=== PATIENT | female | born 1975 | race Caucasian/White ===

== ENCOUNTER → 2016-07-31 | Outpatient (CLI) | payer OTHER ==
[~2016-07-31] MED LIST: ALBUAER19 INH; CALCTAB5 PO; CHOL100010 PO; DOCU100C31 PO; FLNIN/ NAE; LEVO175T3 PO; LSX20 PO; MEDR10TA9 PO; METF-384 PO; MVC20 PO
[2016-07-31 17:45] LABS: ALB/GLOB RATIO 0.9 (0.9-2); ALKALINE PHOSPHATASE 53 U/L (45-117); ALT/SGPT 37 U/L (12-78); AST/SGOT 16 U/L (15-37); BLOOD UREA NITROGEN 17 mg/dl (7-18); BUN/CREATININE RATIO 21.7 (10-20); CALCIUM 8.8 mg/dl (8.5-10.1); CARBON DIOXIDE 25 mmol/L (21-32); CHLORIDE 106 mmol/L (98-107); CHOLESTEROL 174 mg/dl (0-200); CHOLESTEROL/HDL RATIO 3.9; CREATININE 0.77 mg/dl (0.60-1.20); GLUCOSE 104 mg/dl (70-99); HDL CHOLESTEROL 45 mg/dl; POTASSIUM 3.9 mmol/L (3.5-5.1); SODIUM 142 mmol/L (136-145); TRIGLYCERIDES 495 mg/dl (0-150)
[2016-08-01 06:13] LABS: ESTIMATED AVERAGE GLUCOSE 114 mg/dl; HA1C FLAG Normal (Normal)
== END | disposition home or self-care (01) ==
LOC: C.LABBFT 10:26
PROVIDERS: ATTEND Internal Medicine
DX: E78.5 Hyperlipidemia, unspecified (principal); E11.9 Type 2 diabetes mellitus without complications; E55.9 Vitamin D deficiency, unspecified

== ENCOUNTER → 2016-08-30 | Outpatient (CLI) | payer OTHER | END | disposition home or self-care (01) | LOC: C.PAPS 09:44 | PROVIDERS: ATTEND Obstetrics & Gynecology | DX: Z01.419 Encounter for gynecological examination (general) (routine) without abnormal findings (principal) ==

== ENCOUNTER → 2016-09-13 | Outpatient (CLI) | payer OTHER ==
--- NOTE | 2016-09-13 09:48 | DIAGNOSTIC IMAGING REPORT ---
LEFT SHOULDER MIN 2 VIEWS ROUTINE CLINICAL HISTORY: E55.9 Vitamin D [id number] Neck painM25.511 Shoulder pain, COMPARISON: None. DISCUSSION: Moderate degenerative change acromioclavicular joint. Glenohumeral joint is unremarkable. No evidence for fracture or dislocation. There is no evidence for soft tissue swelling. IMPRESSION: Moderate degenerative change acromioclavicular joint. Otherwise negative study Electronically signed by: Roosevelt Shearer M.D. 09/13/2016 9:47 AM Dictated Date/Time: 09/13/2016 9:46 AM
--- NOTE | 2016-09-13 09:57 | DIAGNOSTIC IMAGING REPORT ---
CERVICAL SPINE 5 VIEWS HISTORY: E55.9 Vitamin D [id number] Neck painM25.511 Shoulder pain, COMPARISON: Cervical spine 03/22/2014. FINDINGS: The cervical spine is visualized from C1 through the superior endplate of T1. There is no fracture. No subluxation. Mild reversal of the normal lordotic curvature. Mild disc space narrowing and small endplate osteophytes at C4-C5. This is slightly progressed. No significant neural foraminal narrowing. Prevertebral soft tissues and the atlantodens interval are intact. IMPRESSION: 1. Mild degenerative disc disease at C4-C5 which is slightly progressed. 2. Mild reversal of the normal lordotic curvature. Electronically signed by: Kash Bearden M.D. 09/13/2016 9:56 AM Dictated Date/Time: 09/13/2016 9:55 AM
--- NOTE | 2016-09-13 10:05 | DIAGNOSTIC IMAGING REPORT ---
RIGHT SHOULDER 3 VIEWS CLINICAL HISTORY: Right shoulder pain. Vitamin D deficiency. FINDINGS: 3 views of the right shoulder are obtained. No prior studies are available for comparison at the time of dictation. The skeletal structures appear well mineralized. No fracture is seen. Mild productive change is identified at the acromioclavicular joint. Minimal arthritic change and sclerosis is also seen in the greater tuberosity of the humeral head. The glenohumeral articulation is preserved. The overlying soft tissues are within normal limits. The visualized right lung parenchyma appears clear. IMPRESSION: Mild arthritic change as above. No acute bony abnormality is identified. Electronically signed by: Marco Garcia M.D. 09/13/2016 10:04 AM Dictated Date/Time: 09/13/2016 10:01 AM
[2016-09-13 10:22] LABS: CALCIUM 8.9 mg/dl (8.5-10.1)
[2016-09-13 10:27] LABS: RHEUMATOID FACTOR < 10.0 U/mL (0-15)
[2016-09-19 04:37] LABS: ALBUMIN 3.8 G/DL (3.8-4.8); ANTI-CENTROMERE AB <1.0 NEG AI (<1.0 NEG); ANTI-SS-A <1.0 NEG AI (<1.0 NEG); ANTI-SS-B <1.0 NEG AI (<1.0 NEG); CYCLIC CITRULLINATED PEPT IGG <16 UNITS (<20); DNA ds CRITHIDIA NEGATIVE (NEGATIVE); GAMMA GLOBULIN 1.2 G/DL (0.8-1.7); PARVOVIRUS IgM INDEX 0.2 (<0.9); Sm Antibody <1.0 NEG AI (<1.0 NEG); TOTAL PROTEIN 6.9 G/DL (6.2-8.3)
== END | disposition home or self-care (01) ==
LOC: C.RAD1850 09:02
PROVIDERS: ATTEND Internal Medicine Rheumatology
DX: E55.9 Vitamin D deficiency, unspecified (principal); M25.511 Pain in right shoulder; M25.512 Pain in left shoulder; R70.0 Elevated erythrocyte sedimentation rate; M50.20 Other cervical disc displacement, unspecified cervical region

== ENCOUNTER → 2016-12-21 | Outpatient (CLI) | payer OTHER ==
[~2016-12-21] MED LIST changes: +ERGO500037 PO; +FERR324T PO; +LEVO150T PO; +NAPR1TAB9 PO; +NITR-5 PO; +VNTHFA/IN INH
[2016-12-21 18:56] LABS: ALT/SGPT 34 U/L (12-78); AST/SGOT 18 U/L (15-37); BLOOD UREA NITROGEN 15 mg/dl (7-18); BUN/CREATININE RATIO 18.4 (10-20); CALCIUM 8.2 mg/dl (8.5-10.1); CARBON DIOXIDE 25 mmol/L (21-32); CHLORIDE 105 mmol/L (98-107); CREATININE 0.82 mg/dl (0.60-1.20); GLUCOSE 80 mg/dl (70-99); POTASSIUM 4.1 mmol/L (3.5-5.1); SODIUM 137 mmol/L (136-145)
[2016-12-21 19:11] LABS: ALB/GLOB RATIO 0.9 (0.9-2); ALKALINE PHOSPHATASE 58 U/L (45-117); CHOLESTEROL 181 mg/dl (0-200); CHOLESTEROL/HDL RATIO 4.5; HDL CHOLESTEROL 40 mg/dl; THYROID STIMULATING HORMONE 0.324 uIu/ml (0.300-4.500); TRIGLYCERIDES 474 mg/dl (0-150)
[2016-12-22 06:32] LABS: ESTIMATED AVERAGE GLUCOSE 117 mg/dl; HA1C FLAG Normal (Normal)
== END | disposition home or self-care (01) ==
LOC: C.LABBFT 11:30
PROVIDERS: ATTEND Physician Assistant Medical
DX: E55.9 Vitamin D deficiency, unspecified (principal); E78.5 Hyperlipidemia, unspecified; E11.9 Type 2 diabetes mellitus without complications

== ENCOUNTER → 2017-02-11 | Outpatient (CLI) | payer OTHER ==
[~2017-02-11] MED LIST changes: -ERGO500037 PO; -FERR324T PO; -LEVO150T PO; -NAPR1TAB9 PO; -NITR-5 PO; -VNTHFA/IN INH
[2017-02-14 03:04] LABS: CHLAMYDIA TRACH RNA*** NOT DETECTED (NOT DETECTED); GC (NEIS GONORRHOEAE)RNA** NOT DETECTED (NOT DETECTED); TRICHOMONAS VAGINALIS RNA** NOT DETECTED (NOT DETECTED)
== END | disposition home or self-care (01) ==
LOC: C.LABSPEC 13:40
PROVIDERS: ATTEND Obstetrics & Gynecology
DX: E28.2 Polycystic ovarian syndrome (principal)

== ENCOUNTER → 2017-02-11 | Outpatient (CLI) | payer OTHER | END | disposition home or self-care (01) | LOC: C.PATHSPEC 13:06 | PROVIDERS: ATTEND Obstetrics & Gynecology | DX: E28.2 Polycystic ovarian syndrome (principal) ==

== ENCOUNTER → 2017-05-27 | Day surgery (SDC) | payer OTHER ==
[2017-05-22 13:21] LABS: BASO % 0.6 %; BASO ABS # 0.06 K/uL (0-0.2); COMPLETE YES; EOS % 2.3 %; HEMATOCRIT 30.8 % (37-47); IG% 0.5 %; LYMPH % 32.7 %; LYMPH ABS # 3.42 K/uL (1.2-3.4); MEAN CELL VOLUME 75.7 fL (80-100); MEAN CORPUSCULAR HEMOGLOBIN 23.1 pg (25-34); MEAN CORPUSCULAR HGB CONC 30.5 g/dl (32-36); MEAN PLATELET VOLUME 8.7 fL (7.4-10.4); MONO % 7.9 %; PLATELET COUNT 412 K/uL (130-400); RED BLOOD COUNT 4.07 M/uL (4.2-5.4); WHITE BLOOD COUNT 10.45 K/uL (4.8-10.8)
[2017-05-22 13:32] LABS: URINE APPEARANCE CLEAR (CLEAR); URINE BILIRUBIN NEG (NEG); URINE COLOR YELLOW; URINE NITRITE NEG (NEG); URINE SPECIFIC GRAVITY 1.018 (1.000-1.030); UROBILINOGEN NEG (NEG)
[2017-05-22 13:36] LABS: MANUAL MICROSCOPIC REQUIRED? NO; REVIEW REQ? NO
[2017-05-22 13:39] VITALS: BMI 49.0
--- NOTE | 2017-05-22 14:04 | PAT Medication Instructions ---
Service Date May 22, 2017. Current Home Medication List Albuterol Hfa (Ventolin Hfa), 2-4 PUFFS INH Q6H PRN for SOB/Wheezing Docusate Sodium (Docusate Sodium), 100 MG PO BID Ergocalciferol (Vitamin D 20021 Unit), 50,000 UNIT PO WK Fluticasone Propionate (Fluticasone Propionate), 2 SPRAYS MENA QAM Furosemide (Furosemide), 20 MG PO Q2D Levothyroxine Sodium (Synthroid), 150 MCG PO QAM Lovastatin (Lovastatin), 20 MG PO HS Metformin Hcl (Glucophage), 1,000 MG PO BID Medication Instructions For Your Scheduled Surgery - Hold the following medications 48 hours (2 days) prior to surgery: Metformin Hcl (Glucophage), 1,000 MG PO BID - Hold the following medications the morning of surgery: Docusate Sodium (Docusate Sodium), 100 MG PO BID Ergocalciferol (Vitamin D 07524 Unit), 50,000 UNIT PO WK Furosemide (Furosemide), 20 MG PO Q2D - Take the following medications the morning of surgery with a sip of water: Albuterol Hfa (Ventolin Hfa), 2-4 PUFFS INH Q6H PRN for SOB/Wheezing (use if needed; BRING TO HOSPITAL) Fluticasone Propionate (Fluticasone Propionate), 2 SPRAYS MENA QAM Levothyroxine Sodium (Synthroid), 150 MCG PO QAM - Take the following medications as scheduled the night before surgery: Docusate Sodium (Docusate Sodium), 100 MG PO BID Lovastatin (Lovastatin), 20 MG PO HS If you have any questions please call us at [phone] or [phone] or [phone]
[2017-05-22 14:14] LABS: BUN/CREATININE RATIO 16.5 (10-20); CALCIUM 8.6 mg/dl (8.5-10.1); CREATININE 0.67 mg/dl (0.60-1.20); POTASSIUM 4.1 mmol/L (3.5-5.1)
[~2017-05-27] VITALS: Ht 170.2 cm; Wt 142.7 kg
[~2017-05-27] MED LIST changes: -ALBUAER19 INH; +ATROPINE SULFATE 0.1 MG/ML 5ML SYR IV PRN; -CALCTAB5 PO; +CEFAZOLIN SOD 1 GM VIAL ONE; -CHOL100010 PO; +DEXAMETHASONE SOD INJ 4 MG/ML VIAL ONE; +ERGO500037 PO; +EpHEDrine SULFATE INJ 50 MG/ML AMP IV PRN; +FENTANYL CITRATE INJ 50 MCG/1 ML 2 ML VIAL IV PRN; +FENTANYL CITRATE INJ 50 MCG/1 ML 2 ML VIAL ONE; +FERR324T PO; +GLYCOPYRROLATE INJ 0.2 MG/ML VIAL ONE; +HYDROmorphone INJ 1 MG/ML SYR IV PRN; +KETOROLAC TROMETHAMINE 30 MG/ML VIAL IV. PRN; +LACTATED RINGER'S 1000ML 1,000 ML IV SCH; +LARYING-O-JET KIT (LTA) ONE; +LEVO150T PO; -LEVO175T3 PO; +LIDOCAINE HCL 2% 2 ML VIAL (20MG/ML) ONE; -MEDR10TA9 PO; +MIDAZOLAM HCL 1 MG/ML 2ML VIAL ONE; +NAPR1TAB9 PO; +NEOSTIGMINE METHYLSULFATE 5 MG/5 ML SYR ONE; +NITR-5 PO; +ONDANSETRON INJ 2 MG/ML 2 ML VIAL IV PRN; +ONDANSETRON INJ 2 MG/ML 2 ML VIAL ONE; +OXYCODONE/ACETAMINOPHEN 5-325 TAB PO PRN; +PROMETHAZINE HCL INJ 25 MG in SODIUM CHLORIDE 0.9% 50ML 50 ML IV PRN; +PROPOFOL IV EMULSION 10 MG/ML 20 ML VIAL IV ONE; +SODIUM CHLORIDE 0.9% 1000ML 1,000 ML IV SCH; +SODIUM CHLORIDE 0.9% INJ 10 ML VIAL ONE; +SUCCINYLCHOLINE 100MG/5ML SYR IV ONE; +VNTHFA/IN INH
[2017-05-27 10:30] VITALS: BP 143/71; PULSE 88; TEMP 36.4; O2SAT 96; Ht 170.2 cm; Wt 142.7 kg
[2017-05-27 10:59] LABS: PREG INTERNAL NEGATIVE QC NEG CLEAR BACKGROUND; PREG INTERNAL POSITIVE QC POS CONTROL LINE
--- NOTE | 2017-05-27 12:41 | History & Physical Bridge Note ---
H&P Re-Evaluation Bridge Note: I have examined the patient, reviewed the History & Physical and in the interval since the performance of the History & Physical I have noted the following changes of clinical significance: No changes noted
--- NOTE | 2017-05-27 14:08 | [facility] Post Operative Brief Note ---
Immediate Operative Summary Operative Date May 27, 2017. Pre-Operative Diagnosis Thickened endometrium Post-Operative Diagnosis Same Procedure(s) Performed Hysteroscopy, D&C, insertion of Mirena IUD Surgeon Elver Ledesma DO Dishwashing Machine Repairer Surgeon(s) None Estimated Blood Loss 25cc Findings Thickened endo lining, large amount of fluffy endometrial tissue. Specimens Endometrial curettings Drains bladder drained prior to procedure Anesthesia general Complication(s) None Disposition Recovery Room / PACU
--- NOTE | 2017-05-27 14:10 | Discharge Instructions ---
Discharge Instructions Date of Service May 27, 2017. Visit Reason for Visit: Thickened Endometrium, Endometrial Polyp Discharge Discharge Diagnosis / Problem: same Discharge Goals Goal(s): Diagnostic testing, Therapeutic intervention Activity Recommendations Activity Limitations: per Instructions/Follow-up section Anesthesia . Post Anesthesia Instructions: If you have had General Anesthesia or IV Sedation: * Do not drive today. * Resume driving when surgeon permits. * Do not make important decisions or sign legal documents today. * Call surgeon for: 1. Temperature elevations greater than 101 degrees F. 2. Uncontrollable pain. 3. Excessive bleeding. 4. Persistent nausea and vomiting. 5. Medication intolerance (nausea, vomiting or rash). * For nausea and vomiting use only clear liquids such as: tea, soda, bouillon until nausea subsides, then gradually increase diet as tolerated. * If you have any concerns or questions, call your surgeon's office. If physician is unavailable and it is an emergency, call 911 or go to the nearest emergency room. . Instructions / Follow-Up Instructions / Follow-Up ACTIVITY RECOMMENDATIONS: * Avoid tampons, douching, hot tubs, pools, and intercourse until bleeding has stopped. * May shower as usual. * No strenuous activity for 24-48 hours. After 24-48 hours, you may do anything you feel like doing (driving and sports are okay). SPECIAL CARE INSTRUCTIONS: Special Diet: * Mild nausea may occur in the immediate post-operative period. * Take clear liquids such as tea, cola or bouillon until all nausea has subsided; you may then resume your normal diet. Special Care: * Light bleeding and vaginal spotting can last from a few days to 3-4 weeks. Call your doctor if bleeding becomes heavier than the heaviest part of your period. * Check your temperature twice a day for one week. If it goes above 100.4 degrees Fahrenheit (38.0 Celsius), notify your doctor. * Call your doctor's office for an appointment for 6 weeks after your surgery. FOLLOW-UP VISIT: Call your doctor's office for an appointment for 6 weeks after your surgery. Diet Recommendations Recommended Home Diet: resume previous diet Procedures Procedures Performed: Hysteroscopy, D&C, insertion of Mirena IUD Pending Studies Studies pending at discharge: yes List of pending studies: Endometrial curettings Medical Emergencies . Who to Call and When: Medical Emergencies: If at any time you feel your situation is an emergency, please call 911 immediately. . Non-Emergent Contact Non-Emergency issues call your: Primary Care Provider, 3D Designer . . "Provider Documentation" section prepared by Shantelle Ledesma. .
--- NOTE | 2017-05-27 14:31 | OPERATIVE REPORT ---
DATE OF OPERATION: 05/27/2017 PREOPERATIVE DIAGNOSES: Thickened endometrium and urinary tract infection. POSTOPERATIVE DIAGNOSES: Same. PROCEDURES PERFORMED: Hysteroscopy, dilation and curettage and insertion of Mirena IUD. SURGEON: Shantelle Ledesma DO HISTOPATH TECH: None. ESTIMATED BLOOD LOSS: 25 mL. FINDINGS: Thickened endometrial lining and large amount of fluffy endometrial tissue. SPECIMENS: Endometrial curettings. DRAINS: Bladder drained prior to procedure. ANESTHESIA: General. COMPLICATIONS: None. DISPOSITION: Stable and good to recovery area. INDICATIONS FOR PROCEDURE: The patient is a 42-year-old G0 with a longstanding history of heavy periods that had been treated with Depo, but due to her weight and elevated BMI, decision was made to stop the Depo. Ultrasound was performed and showed thickened endometrial lining. DESCRIPTION OF PROCEDURE: The patient was seen in the preoperative holding area, where risks, benefits, and alternatives to surgery were reviewed. She had previously signed informed consent in the office under no duress. She elected to proceed with surgery. All questions were answered. She was taken to the operating room, where preoperatively Ancef was given due to findings of Ancef susceptible UTI on preoperative testing. She was prepared and draped in the usual sterile fashion in the dorsal lithotomy position with [facility]ups. A timeout was confirmed. The bladder was drained. The weighted speculum was placed in the vagina. The cervix was visualized and the anterior lip was grasped with a single tooth tenaculum. The cervix was gently sequentially dilated to admit the hysteroscope. The hysteroscope was inserted. The cavity was viewed with the above noted findings. Hysteroscope was withdrawn and a gentle curettage was undertaken with a sharp curette. Large amount of fluffy endometrial tissue was obtained and sent to pathology for further review. Next, the Mirena IUD was inserted without difficulty. All instruments were removed from the vagina. The Mirena strings were trimmed and tucked behind the cervix. The patient was awoken from anesthesia. She tolerated the procedure well and went to recovery area in stable and good condition. All instrument and sponge counts were correct at the conclusion of the surgery. I attest to the content of the Intraoperative Record and any orders documented therein. Any exception s are noted below.
[2017-05-27 15:00] VITALS: BP 127/66; PULSE 77; TEMP 36.5; O2SAT 97
--- NOTE | 2017-05-27 15:18 | Anesthesiology Progress Note ---
Anesthesia Post Op Note Date & Time May 27, 2017 at 15:17 Vital Signs Pain Intensity: 4 Vital Signs Past 12 Hours Date Time Temp Pulse Resp B/P (MAP) Pulse Ox O2 Delivery O2 Flow Rate FiO2 05/27/17 14:55 36.3 05/27/17 14:51 122/70 05/27/17 14:48 80 17 97 05/27/17 14:48 79 17 05/27/17 14:46 126/92 05/27/17 14:43 81 21 97 05/27/17 14:43 81 21 05/27/17 14:42 80 21 05/27/17 14:42 80 21 98 05/27/17 14:41 129/82 05/27/17 14:37 81 16 05/27/17 14:37 81 16 96 05/27/17 14:36 134/78 05/27/17 14:32 82 18 05/27/17 14:32 83 18 95 05/27/17 14:31 133/79 05/27/17 14:27 84 19 05/27/17 14:27 90 19 98 05/27/17 14:26 125/87 05/27/17 14:22 84 19 100 05/27/17 14:22 83 19 05/27/17 14:21 129/82 05/27/17 14:17 84 16 05/27/17 14:17 84 16 100 05/27/17 14:16 132/78 05/27/17 14:13 133/91 05/27/17 14:12 85 19 05/27/17 14:12 85 19 100 05/27/17 14:08 153/101 05/27/17 14:07 36.0 84 20 133/91 100 Oxymask 10 05/27/17 10:30 36.4 88 20 143/71 (95) 96 Room Air Notes Mental Status: alert / awake / arousable, participated in evaluation Pt Amnestic to Procedure: Yes Nausea / Vomiting: adequately controlled Pain: adequately controlled Airway Patency, RR, SpO2: stable & adequate BP & HR: stable & adequate Hydration State: stable & adequate Anesthetic Complications: no major complications apparent
[2017-05-27 15:30] VITALS: BP 158/84; PULSE 80; O2SAT 99
[2017-05-27 16:00] VITALS: BP 148/74; PULSE 76; TEMP 36.5; O2SAT 96
== END | disposition home or self-care (01) ==
LOC: C.ACU 10:04
PROVIDERS: ATTEND Obstetrics & Gynecology
DX: N85.01 Benign endometrial hyperplasia (principal); E28.2 Polycystic ovarian syndrome; N39.0 Urinary tract infection, site not specified; E11.9 Type 2 diabetes mellitus without complications; F81.9 Developmental disorder of scholastic skills, unspecified; Z30.430 Encounter for insertion of intrauterine contraceptive device

== ENCOUNTER → 2017-10-08 | Outpatient (CLI) | payer OTHER ==
[~2017-10-08] MED LIST changes: -ATROPINE SULFATE 0.1 MG/ML 5ML SYR IV PRN; -CEFAZOLIN SOD 1 GM VIAL ONE; -DEXAMETHASONE SOD INJ 4 MG/ML VIAL ONE; -EpHEDrine SULFATE INJ 50 MG/ML AMP IV PRN; -FENTANYL CITRATE INJ 50 MCG/1 ML 2 ML VIAL IV PRN; -FENTANYL CITRATE INJ 50 MCG/1 ML 2 ML VIAL ONE; -GLYCOPYRROLATE INJ 0.2 MG/ML VIAL ONE; -HYDROmorphone INJ 1 MG/ML SYR IV PRN; -KETOROLAC TROMETHAMINE 30 MG/ML VIAL IV. PRN; -LACTATED RINGER'S 1000ML 1,000 ML IV SCH; -LARYING-O-JET KIT (LTA) ONE; -LIDOCAINE HCL 2% 2 ML VIAL (20MG/ML) ONE; -MIDAZOLAM HCL 1 MG/ML 2ML VIAL ONE; -NEOSTIGMINE METHYLSULFATE 5 MG/5 ML SYR ONE; -ONDANSETRON INJ 2 MG/ML 2 ML VIAL IV PRN; -ONDANSETRON INJ 2 MG/ML 2 ML VIAL ONE; -OXYCODONE/ACETAMINOPHEN 5-325 TAB PO PRN; -PROMETHAZINE HCL INJ 25 MG in SODIUM CHLORIDE 0.9% 50ML 50 ML IV PRN; -PROPOFOL IV EMULSION 10 MG/ML 20 ML VIAL IV ONE; -SODIUM CHLORIDE 0.9% 1000ML 1,000 ML IV SCH; -SODIUM CHLORIDE 0.9% INJ 10 ML VIAL ONE; -SUCCINYLCHOLINE 100MG/5ML SYR IV ONE
== END | disposition home or self-care (01) ==
LOC: C.LABSPEC 11:54
PROVIDERS: ATTEND Obstetrics & Gynecology
DX: R39.9 Unspecified symptoms and signs involving the genitourinary system (principal); B37.3 Candidiasis of vulva and vagina

== ENCOUNTER → 2017-11-05 | Outpatient (CLI) | payer OTHER ==
--- NOTE | 2017-11-05 15:58 | DIAGNOSTIC IMAGING REPORT ---
KUB CLINICAL HISTORY: Intrauterine device assessment. FINDINGS: 2 AP supine abdominal radiographs are correlated with abdominal CT dictated 11/28/2010. There is a nonobstructed abdominal bowel gas pattern. Moderate colonic fecal retention is noted. There is no evidence of intraperitoneal free air on these supine images. No intrauterine device is identified in the pelvis. There are no abnormal abdominal calcifications. The bony structures appear intact. Sclerotic change is noted in the sacroiliac joints. IMPRESSION: 1. Nonobstructed abdominal bowel gas pattern. 2. No intrauterine device is identified. Electronically signed by: Marco Garcia M.D. 11/05/2017 3:57 PM Dictated Date/Time: 11/05/2017 3:55 PM
== END | disposition home or self-care (01) ==
LOC: C.RAD 15:27
PROVIDERS: ATTEND Obstetrics & Gynecology
DX: T83.32XA Displacement of intrauterine contraceptive device, initial encounter (principal); Y76.2 Prosthetic and other implants, materials and accessory obstetric and gynecological devices associated with adverse incidents

== ENCOUNTER 2019-04-26 13:22 | Observation (INO) ==
[2019-04-26] MEDS ORDERED: DEXAMETHASONE SOD INJ 4 MG/ML VIAL IV STA (13:50)
[2019-04-26] MEDS ORDERED: DiphenhydrAMINE HCL 50 MG/ML VIAL IV STA (13:50)
[2019-04-26 14:00] LABS: Basophils # (auto) 0.02 K/uL (0-0.2); Basophils % (auto) 0.1 %; Eosinophils # (auto) 0.27 K/uL (0-0.5); Eosinophils % (auto) 1.9 %; Hematocrit (blood only) 31.9 % (37-47); Hemoglobin 10.7 g/dL (12.0-16.0); Immature Granulocytes # (auto) 0.04 K/uL (0.00-0.02); Immature Granulocytes % (auto) 0.3 %; Lymphocytes # (auto) 2.19 K/uL (1.2-3.4); Lymphocytes % (auto) 15.5 %; Mean Corpuscular Hemoglobin 26.1 pg (25-34); Mean Corpuscular Hgb Conc 33.5 g/dL (32-36); Mean Corpuscular Volume 77.8 fL (80-100); Mean Platelet Volume 8.5 fL (7.4-10.4); Monocytes # (auto) 0.73 K/uL (0.11-0.59); Monocytes % (auto) 5.2 %; Neutrophils # (auto) 10.86 K/uL (1.4-6.5); Platelet Count 587 K/uL (130-400); RDW Coefficient of Variation 15.6 % (11.5-14.5); RDW Standard Deviation 44.6 fL (36.4-46.3); White Blood Count 14.11 K/uL (4.8-10.8)
[2019-04-26] MEDS ORDERED: SODIUM CHLORIDE 0.9% 500 ML IV SCH (14:00)
[2019-04-26 14:18] LABS: Albumin Level 3.1 gm/dl (3.4-5.0); BUN Creatinine Ratio 14.8 (10-20); Calcium 8.7 mg/dl (8.5-10.1); Creatinine Clr Calc Pharmacy 128.4 ml/min; Est GFR (African American) 106.1; Est GFR (Non-African American) 91.6; Potassium 3.8 mmol/L (3.5-5.1)
[2019-04-26 14:21] LABS: Albumin Globulin Ratio 0.6 (0.9-2); Bilirubin,Total 0.2 mg/dl (0.2-1); Total Protein 8.1 gm/dl (6.4-8.2)
--- NOTE | 2019-04-26 14:34 | XRay Report ---
XR soft tissue neck CLINICAL HISTORY: tongue angioedema COMPARISON STUDY: Cervical spine 09/23/2016. FINDINGS: Prevertebral soft tissues and the epiglottis are normal in thickness. Significant swelling within the upper anterior neck/sublingual location. This results in mild mass effect along the hypoph arynx. No radiopaque foreign bodies. IMPRESSION: Significant soft tissue swelling within the upper anterior neck/sublingual location resu lting in mild mass effect along the hypopharynx. Electronically signed by: Kash Bearden M.D. 04/26/2019 2:33 PM
--- NOTE | 2019-04-26 14:35 | XRay Report ---
XR chest 1V portable HISTORY: Shortness of breath. COMPARISON: Chest 08/17/2018. FINDINGS: There are low lung volumes, unchanged. The heart is normal in size. The lungs are clear. No pleural effusions. No pneumothorax. IMPRESSION: No significant change compared to the prior study. No acute process. Electronically signed by: Kash Bearden M.D. 04/26/2019 2:34 PM
--- NOTE | 2019-04-26 15:40 | Emergency Department Note ---
Entered by Fatoumata Davis acting as a scribe for Eran Weaver MD History of Present Illness General Chief complaint: Allergic Reaction Stated complaint: SWOLLEN TONGUE Time Seen by Provider: 04/26/19 13:50 Source: patient History of Present Illness Onset (ago): hour(s) (this morning) Location: mouth (tongue) Pain Consistency: + other (episode) Quality: + other (swelling secondary to allergic reaction) Associated symptoms: + denies other symptoms (shortness of breath) and + other (swollen neck glands, difficulty swallowing, itchy skin and eyes, muffled voice, inability to lower tongue) The patient is a 43 year old female that is presenting to the Emergency Room with complaints of an episode of an allergic reaction that occurred this morning. The patient reports that she noticed her tongue was swollen this morning. She states that she is unable to lower her tongue down from the roof of her mouth. She notes that the glands in her throat are swollen. She reports that she is having difficulty swallowing secondary to her symptoms. She states that her voice is more muffled than usual due to her swollen tongue. She denies any shortness of breath. She notes that she feels itchy diffusely and that her eyes are watery. The patient denies taking any unusual medications or eating anything different. She notes that she believes she is allergic to her cats. She reports that she took her Claritin and used her nasal spray today. She notes that she started Lasix and Lisinopril 1 month ago for her hypertension. She reports that she had an episode of swollen lips two days ago that resolved on its own. She denies seeing a provider at that time as the symptoms resolved. The patient denies any sick contacts. She denies any family history of similar issues. She states that she is up to date with all her vaccinations. Home Medications Home Medications Medication Instructions Recorded Confirmed Type albuterol sulfate [Ventolin HFA] 2 puff INHALATION QID PRN 08/17/18 04/26/19 History docusate sodium [Stool Softener] 100 mg PO BID PRN 08/17/18 04/26/19 History fluticasone propionate [Flonase 2 spray INTRANASAL QAM PRN 08/17/18 04/26/19 History Allergy Relief] furosemide [Lasix] 20 mg PO DAILY PRN 08/17/18 04/26/19 History metformin [Glucophage] 1,000 mg PO BID 08/17/18 04/26/19 History blood sugar diagnostic strips #10 ea 03/06/19 04/26/19 History cholecalciferol (vitamin D3) 1,000 2,000 units PO QAM tab 03/06/19 04/26/19 History unit (25 mcg) tablet loratadine 10 mg tablet 0 mg PO QAM #30 tab 03/06/19 04/26/19 History lovastatin 20 mg tablet 0 mg PO HS #30 tab 03/06/19 04/26/19 History meloxicam 15 mg tablet 0 mg PO QAM #30 tab 03/06/19 04/26/19 History ferrous sulfate 0 mg PO QAM 03/26/19 04/26/19 History acetaminophen [Tylenol] 325 mg PO Q6H PRN 04/26/19 04/26/19 History lisinopril 10 mg PO DAILY 04/26/19 04/26/19 History duloxetine 40 mg PO DAILY 04/27/19 04/27/19 History levothyroxine 200 mcg PO DAILY 04/27/19 04/27/19 History semaglutide 0.25 mg SUBCUT WK 04/27/19 04/27/19 History valacyclovir 1,000 mg PO DAILY 04/27/19 04/27/19 History Allergies Allergy/AdvReac Type Severity Reaction Status Date / Time No Known Drug Allergies Allergy Verified 04/26/19 15:00 TWAN Inhibitors AdvReac Severe angioedema Verified 04/26/19 23:20 NSAIDS (Non-Steroidal AdvReac Severe angioedema Verified 04/26/19 23:20 Anti-Inflamma Past Med/Surg History Medical History Diabetes mellitus type 2, controlled (Chronic) Hypertension (Chronic) Asthma (Chronic) Chronic bilateral low back pain without sciatica (Chronic) Degenerative joint disease of cervical spine (Chronic) Herpes simplex (Chronic) Hirsutism (Chronic) Hyperlipidemia (Chronic) Hypothyroidism (Chronic) Intellectual disability (Chronic) Morbid obesity (Chronic) Polycystic ovarian syndrome (Chronic) Severe obstructive sleep apnea (Chronic) Type 2 diabetes mellitus (Chronic) Diabetes mellitus, type II (Chronic) History of abnormal uterine bleeding History of endometrial hyperplasia Surgical History H/O oral surgery History of endometrial biopsy S/P D&C (status post dilation and curettage) S/P tonsillectomy Family History Aunt Breast cancer maternal aunt Family/Other Diabetes Other Family history non-contributory Social History Preferred Language: Welsh Communication Ability: Effective Beliefs That Will Affect Care: None Current Living Situation: Spouse Other Information That Helps Us Care for You: No Feels Safe at Home: Yes Safety Concerns: Feels Safe At This Time Smoking Status: Former smoker Hx Alcohol Use: Yes (social) Hx Substance Use: No Review of Systems See HPI for pertinent positives & negatives. and A total of 10 systems reviewed and were otherwise negative Physical Exam Vital Signs Vital Signs - 24 hr 04/26/19 13:31 04/26/19 13:41 04/26/19 13:45 Temperature 37.0 C Temperature Source Oral Sepsis Recent Fever Within 48 Hours No Sepsis New/Unexplained Change in Mental Status No Sepsis Action Taken by Nursing No Action Required Pulse Rate 113 H 115 H 115 H Pulse Rate from SpO2 Sensor 115 H 114 H Pulse Rhythm Respiratory Rate 22 Respiratory Effort / Characteristics Non-Labored Spontaneous Respiratory Depth Normal Blood Pressure 138/83 139/73 Blood Pressure Mean 101 95 Blood Pressure Position Sitting Pulse Oximetry 92 98 98 Oxygen Delivery Method Room Air 04/26/19 13:50 04/26/19 13:52 04/26/19 14:00 Temperature Temperature Source Sepsis Recent Fever Within 48 Hours Sepsis New/Unexplained Change in Mental Status Sepsis Action Taken by Nursing Pulse Rate 111 H 106 H Pulse Rate from SpO2 Sensor 111 H 107 H Pulse Rhythm Regular Respiratory Rate Respiratory Effort / Characteristics Respiratory Depth Blood Pressure Blood Pressure Mean Blood Pressure Position Pulse Oximetry 98 97 97 Oxygen Delivery Method Room Air 04/26/19 14:10 04/26/19 14:20 04/26/19 14:27 Temperature Temperature Source Sepsis Recent Fever Within 48 Hours Sepsis New/Unexplained Change in Mental Status Sepsis Action Taken by Nursing Pulse Rate 108 H 110 H 108 H Pulse Rate from SpO2 Sensor 108 H 110 H 108 H Pulse Rhythm Respiratory Rate Respiratory Effort / Characteristics Respiratory Depth Blood Pressure 131/76 Blood Pressure Mean 94 Blood Pressure Position Pulse Oximetry 97 98 99 Oxygen Delivery Method 04/26/19 14:30 04/26/19 14:31 04/26/19 14:40 Temperature Temperature Source Sepsis Recent Fever Within 48 Hours Sepsis New/Unexplained Change in Mental Status Sepsis Action Taken by Nursing Pulse Rate 109 H 107 H 107 H Pulse Rate from SpO2 Sensor 110 H 108 H 107 H Pulse Rhythm Respiratory Rate Respiratory Effort / Characteristics Respiratory Depth Blood Pressure 119/69 Blood Pressure Mean 85 Blood Pressure Position Pulse Oximetry 97 96 96 Oxygen Delivery Method 04/26/19 14:45 04/26/19 14:50 04/26/19 15:00 Temperature Temperature Source Sepsis Recent Fever Within 48 Hours Sepsis New/Unexplained Change in Mental Status Sepsis Action Taken by Nursing Pulse Rate 109 H 109 H 103 H Pulse Rate from SpO2 Sensor 109 H 108 H 104 H Pulse Rhythm Respiratory Rate Respiratory Effort / Characteristics Respiratory Depth Blood Pressure 123/68 112/72 Blood Pressure Mean 86 85 Blood Pressure Position Pulse Oximetry 96 98 97 Oxygen Delivery Method 04/26/19 15:10 04/26/19 15:15 04/26/19 15:20 Temperature Temperature Source Sepsis Recent Fever Within 48 Hours Sepsis New/Unexplained Change in Mental Status Sepsis Action Taken by Nursing Pulse Rate 94 H 99 H 105 H Pulse Rate from SpO2 Sensor 95 H 100 H 105 H Pulse Rhythm Respiratory Rate Respiratory Effort / Characteristics Respiratory Depth Blood Pressure 138/75 Blood Pressure Mean 96 Blood Pressure Position Pulse Oximetry 97 99 98 Oxygen Delivery Method 04/26/19 15:30 04/26/19 15:31 04/26/19 15:40 Temperature Temperature Source Sepsis Recent Fever Within 48 Hours Sepsis New/Unexplained Change in Mental Status Sepsis Action Taken by Nursing Pulse Rate 102 H 101 H 99 H Pulse Rate from SpO2 Sensor 102 H 103 H 99 H Pulse Rhythm Respiratory Rate Respiratory Effort / Characteristics Respiratory Depth Blood Pressure 121/80 Blood Pressure Mean 93 Blood Pressure Position Pulse Oximetry 98 98 97 Oxygen Delivery Method GENERAL: Awake, alert, uncomfortable-appearing, in no distress HENT: Normocephalic, atraumatic. Oropharynx with moderate left sided tongue angioedema with muffled/nasal voice but no stridor. No Trismus. Handling secretions without difficulty. No pain with tracheal manipulation. No crepitus. EYES: Normal conjunctiva. Sclera non-icteric. NECK: Supple. No nuchal rigidity. FROM. No JVD. RESPIRATORY: CTA bilaterally. CARDIAC: Regular rate, normal rhythm. Extremities warm and well perfused. Pulses equal. ABDOMEN: Soft, non-distended. No tenderness to palpation. No rebound or guarding. No masses. RECTAL: Deferred. MUSCULOSKELETAL: Chest examination reveals no tenderness. The back is symmetrical on inspection without obvious abnormality. There is no CVA ten derness to palpation. No joint edema. LOWER EXTREMITIES: Calves are equal size bilaterally and non-tender. No edema. No discoloration. NEURO: Normal sensorium. No sensory or motor deficits noted. SKIN: No rash or jaundice noted. Course 1343:The patient was evaluated in room B01. A complete history and physical examination was performed. 1448: I updated the patient on her current lab and imaging results. She is resting comfortably at this time. 1456: I discussed the patients case with Pedro Briscoe, who will evaluate the patient for further management and care. 1500: Upon reevaluation, the patient is resting comfortably. I discussed laboratory and radiographic results with the patient. She verbalized agreement of the treatment plan. The patient will be evaluated for further management and care. Administered Medications Diphenhydramine HCl (Benadryl) 25 mg IV Q6H PRN PRN Reason: Allergic Reaction Stop: 05/26/19 16:56 Last Admin: 04/26/19 19:37 Dose: 25 mg Documented by: [id number] Diphenhydramine HCl (Benadryl) 50 mg IV Q6 ELIO Stop: 05/27/19 00:00 Last Admin: 04/26/19 23:45 Dose: 50 mg Documented by: [id number] Epinephrine (Raccemic Epinephrine 2.25% 0.5ml) 0.5 ml NEB TIDR ELIO Stop: 05/26/19 18:59 Last Admin: 04/26/19 19:01 Dose: 0.5 ml Documented by: [id number] Sodium Chloride (1/2 Nss) 1,000 mls @ 100 mls/hr IV .Q10H ELIO Stop: 05/26/19 17:05 Last Admin: 04/26/19 17:52 Dose: 100 mls/hr Documented by: [id number] Methylprednisolone 40 mg/ (Syringe) 0.64 mls @ 1.5 mls/min IV Q8 ELIO Stop: 05/26/19 21:59 Last Admin: 04/26/19 21:01 Dose: 1.5 mls/min Documented by: [id number] Ranitidine HCl 50 mg/ Dextrose 102 mls @ 200 mls/hr IV Q8H ELIO Stop: 05/26/19 21:59 Last Infusion: 04/26/19 21:47 Dose: 0 mls/hr Documented by: [id number] Admin: 04/26/19 20:57 Dose: 200 mls/hr Documented by: [id number] Acetaminophen (Ofirmev) 65 mls @ 200 mls/hr IV Q6H PRN PRN Reason: Pain or Fever Stop: 05/26/19 23:29 Last Admin: 04/26/19 23:44 Dose: 200 mls/hr Documented by: [id number] Insulin Aspart (Novolog Flexpen) 0 units SC Q6 ELIO Stop: 05/27/19 00:00 Last Admin: 04/26/19 23:54 Dose: 2 units Documented by: [id number] Cosigned by: [id number] Insulin Glargine (Lantus Solostar Pen) 0 units SC Q12 ELIO; Protocol Stop: 05/26/19 20:59 Last Admin: 04/26/19 21:54 Dose: 15 units Documented by: [id number] Cosigned by: [id number] Discontinued Medications Dexamethasone (Decadron) 10 mg IV NOW STA Stop: 04/26/19 13:51 Last Admin: 04/26/19 13:58 Dose: 10 mg Documented by: [id number] Diphenhydramine HCl (Benadryl) 25 mg IV NOW STA Stop: 04/26/19 13:51 Last Admin: 04/26/19 13:58 Dose: 25 mg Documented by: [id number] Diphenhydramine HCl (Benadryl) 25 mg IV Q6 ELIO Stop: 05/26/19 17:59 Last Admin: 04/26/19 17:52 Dose: 25 mg Documented by: [id number] Ranitidine HCl 50 mg/ Dextrose 102 mls @ 200 mls/hr IV NOW STA Stop: 04/26/19 14:20 Last Infusion: 04/26/19 14:27 Dose: 0 mls/hr Documented by: [id number] Admin: 04/26/19 14:04 Dose: 200 mls/hr Documented by: [id number] Sodium Chloride (Nss) 500 mls @ 999 mls/hr IV .Q31M ELIO Stop: 04/26/19 14:30 Last Infusion: 04/26/19 16:02 Dose: 0 mls/hr Documented by: [id number] Admin: 04/26/19 13:59 Dose: 999 mls/hr Documented by: [id number] Methylprednisolone 80 mg/ (Syringe) 1.28 mls @ 1.5 mls/min IV 2145 ONE Stop: 04/26/19 21:46 Last Admin: 04/26/19 21:49 Dose: 1.5 mls/min Documented by: [id number] Lovastatin (Mevacor) 40 mg PO HS ELIO Stop: 05/26/19 20:59 Last Admin: 04/26/19 22:00 Dose: Not Given Documented by: [id number] Medical Decision Making Differential Diagnosis Differential diagnosis: Etiologies such as allergic reaction, anaphylaxis, urticaria, Gross-Zhang syndrome, toxic epidermal necrolysis, erythema multiforme, cellulitis, as well as others were entertained. Medical Records Attestation: I reviewed the patient's medical records. Home Medications Current Medication List: was personally reviewed by me Laboratory Data Attestation: I reviewed the patient's lab results. Result diagrams: 04/26/19 13:51 04/26/19 13:51 Lab Results 04/26/19 04/26/19 04/26/19 Range/Units 13:51 13:51 13:51 WBC 14.11 H (4.8-10.8) K/uL RBC 4.10 L (4.2-5.4) M/uL Hgb 10.7 L (12.0-16.0) g/dL Hct 31.9 L (37-47) % MCV 77.8 L (80-100) fL MCH 26.1 (25-34) pg MCHC 33.5 (32-36) g/dL RDW Std Deviation 44.6 (36.4-46.3) fL RDW Coeff of Wojciech 15.6 H (11.5-14.5) % Plt Count 587 H (130-400) K/uL MPV 8.5 (7.4-10.4) fL Immature Gran % (Auto) 0.3 % Neut % (Auto) 77.0 % Lymph % (Auto) 15.5 % [place] % (Auto) 5.2 % Eos % (Auto) 1.9 % Baso % (Auto) 0.1 % Immature Gran # (Auto) 0.04 H (0.00-0.02) K/uL Neut # (Auto) 10.86 H (1.4-6.5) K/uL Lymph # (Auto) 2.19 (1.2-3.4) K/uL [place] # (Auto) 0.73 H (0.11-0.59) K/uL Eos # (Auto) 0.27 (0-0.5) K/uL Baso # (Auto) 0.02 (0-0.2) K/uL Sodium 133 L (136-145) mmol/L Potassium 3.8 (3.5-5.1) mmol/L Chloride 107 (98-107) mmol/L Carbon Dioxide 21 (21-32) mmol/L Anion Gap 5.0 (3-11) BUN 12 (7-18) mg/dl Creatinine 0.80 (0.6-1.2) mg/dl Est Cr Clr Drug Dosing 128.4 ml/min Est GFR ( Amer) 106.1 Est GFR (Non-Af Amer) 91.6 BUN/Creatinine Ratio 14.8 (10-20) Glucose 148 H (70-99) mg/dl Calcium 8.7 (8.5-10.1) mg/dl Total Bilirubin 0.2 (0.2-1) mg/dl AST 6 L (15-37) U/L ALT 12 (12-78) U/L Alkaline Phosphatase 141 H (45-117) U/L C-Reactive Protein 12.00 H (0-0.29) mg/dl Total Protein 8.1 (6.4-8.2) gm/dl Albumin 3.1 L (3.4-5.0) gm/dl Globulin 5.0 H (2.5-4.0) gm/dl Albumin/Globulin Ratio 0.6 L (0.9-2) Lipase 100 (73-393) U/L Imaging Data Radiologist's Impression: Radiology results as stated below per my review and the radiologist's interpretation: XR soft tissue neck CLINICAL HISTORY: tongue angioedema COMPARISON STUDY: Cervical spine 09/23/2016. FINDINGS: Prevertebral soft tissues and the epiglottis are normal in thickness. Significant swelling within the upper anterior neck/sublingual location. This results in mild mass effect along the hypopharynx. No radiopaque foreign bodies. IMPRESSION: Significant soft tissue swelling within the upper anterior neck/sublingual location resulting in mild mass effect along the hypopharynx. Electronically signed by: Kash Bearden M.D. 04/26/2019 2:33 PM XR chest 1V portable HISTORY: Shortness of breath. COMPARISON: Chest 08/17/2018. FINDINGS: There are low lung volumes, unchanged. The heart is normal in size. The lungs are clear. No pleural effusions. No pneumothorax. IMPRESSION: No significant change compared to the prior study. No acute process. Electronically signed by: Kash Bearden M.D. 04/26/2019 2:34 PM ECG Data Attestation: I personally reviewed and interpreted this ECG as follows: Indication: other (allergic reaction) Rate (beats per minute): 106 Rhythm: sinus tachycardia Findings: + other (normal axis, QTC 454); no PAC, no PVC, no ST depression, no ST elevation, no acute ischemic change and no ectopy Blood Pressure Blood Pressure Findings: Elevated blood pressure Blood Pressure Disposition: elevated BP felt to be situational MDM Narrative The patient is a pleasant 43-year-old woman with a past medical history of hypertension recently placed on lisinopril last month, history of intellectual disability, PCOS, Hirsituism hyperlipidemia, GENET who presents emergency department with worsening tongue swelling that began this morning in the setting of having lip swelling on Saturday that then resolved per hpi. Symptom occur in the setting of starting Lisinopril last month for hypertension. Patient denies known family history of similar sx. She reports voice changes and discomfort s wallowing but denies shortness of breath/difficulty breath. On exam the patient exhibits moderate left sided tongue angioedema with muffled/nasal voice but no stridor. No Trismus. Handling secretions without difficulty. No pain with tracheal manipulation. No crepitus. Patient was treated with Dexamethasone, Diphenhydramine, and Zantac on arrival with subsequent improvement in tongue swelling and slightly with voice. Considering no known family history of similar angioedema, FFP/cryo deferred at this time. Soft tissue neck xr demonstrates "significant soft tissue swelling within the upper anterior neck/sublingual location resulting in mild mass effect along the hypopharynx". However, given improvement and no compromise of airway at this time no indication for emergent or elective intubation. CXR negative for acute process. EKG without overt acute ischemia. WBC 14, nonspecfici. H/H 10.6/31.9 approximate to prior range of values. Platelets 587 likely reactive. Glucose 198 with chemistry without acidosis. Electrolytes and LFTs unremarkable. Case was discussed with Dr. Ramírez, [facility] hospitalist, who will evaluate the patient for admission. Impression & Plan Angioedema, Allergy to lisinopril, History of hypertension, Diabetes mellitus Critical Care Time Critical Care Time: Yes Total Critical Care Time: 35 I have personally spent greater than 35 minutes of critical care time in the direct management of this patient. This includes bedside care, interpretation of diagnostic studies, and testing, discussion with consultants, patient, and family members, and other required patient management activities. This 35 minutes is in excess of all separately billable procedures. Discharge Plan Visit Data *Final* Discharge Date/Time: 04/26/19 16:27 Chief Complaint: Allergic Reaction Stated Complaint: SWOLLEN TONGUE ED Provider: Eran Weaver Discharge Problem: Angioedema, Allergy to lisinopril, History of hypertension, Diabetes mellitus Patient Disposition: Admitted As Inpatient Discharge Instructions Interventions: ED Discharge Assessment Last Done: 04/26/19 16:27 Discharge Problem: Angioedema Qualifiers: Encounter type: initial encounter Qualified Code(s): T78.3XXA - Angioneurotic edema, initial encounter Diabetes mellitus Qualifiers: Diabetes mellitus type: type 2 Diabetes mellitus shelter insulin use: without shelter use The scribe's documentation has been prepared under my direction and personally reviewed by me in its entirety. I confirm that the note above accurately reflects all work, treatment, procedures, and medical decision making performed by me.
--- NOTE | 2019-04-26 15:56 | History & Physical Report ---
Date of Service April 26, 2019 Assessment & Plan (1) Angioedema: Angioedema. Lisinopril was started about a month ago and is the most likely culprit. Lisinopril should be discontinued and all TWAN inhibitor should be avoided in the future. Patient also takes meloxicam. It would be prudent to avoid nonsteroidal anti-inflammatory drugs as well. Patient has significant swelling of tongue and muffled voice. No stridor, wheezing, respiratory distress. She is able to swallow liquids. CT demonstrated significant soft tissue swelling with the upper anterior neck/sublingual area with mild mass-effect on the hypopharynx, normal thickness of prevertebral soft tissues and epiglottis. Received intravenous dexamethasone, ranitidine, diphenhydramine in ED. Continue IV steroids, but will use methylprednisolone. Continue H1 and H2 antihistamines (diphenhydramine and ranitidine). Racemic epinephrine via nebulizer. Humidified air via mask. Monitor airway / continuous pulse oximetry. NPO until better. Check complement C4 level. (2) Hypertension: Discontinue lisinopril and avoid TWAN inhibitors in the future. Follow blood pressure and titrate therapy as necessary. (3) Asthma: Asthma stable. Nebulizers as needed. (4) Diabetes mellitus type 2, controlled: History of diabetes mellitus type 2, managed with metformin. Old records reviewed. Appears that metformin was initially started for polycystic ovary disease, but patient subsequently developed hyperglycemia and elevated hemoglobin A1c's. Hemoglobin A1c in January was 7. Random blood sugar in ED 148. Hold metformin during hospital stay because of acute illness. Anticipate elevated blood sugars due to acute illness and steroid therapy. Lantus/NovoLog per protocol. (5) Hypothyroidism: TSH was normal in January 2019. Continue levothyroxine. (6) Polycystic ovarian syndrome: Resume metformin at time of discharge. (7) DVT prophylaxis: Will opt to avoid anticoagulants in case condition worsens and intubation becomes necessary. SCDs. Ambulate. (8) Discharge planning issues: Anticipated discharge to home. Family Medicine follow-up with Dr. Burns. History of Present Illness Chief Complaint: difficulty swallowing Primary Care Provider: Maxi Burns MD 43-year-old female followed by Dr. Burns for Family Medicine. History of hypertension, diabetes mellitus type 2, polycystic ovary disease, cognitive disability, and other problems noted below. She was started on lisinopril about a month ago for hypertension. 2 days prior to admission she noticed some swelling of her upper lip. She thought that the swelling might be secondary to herpes labialis. This morning she noticed swelling of her tongue and difficulty swallowing. She was able to swallow liquids without difficulty. also noted that her voice was muffled. No stridor, wheezing, or respiratory distress. As noted, she was started on lisinopril about a month ago for hypertension. She also takes meloxicam for joint pain. Allergies Allergy/AdvReac Type Severity Reaction Status Date / Time No Known Drug Allergies Allergy Verified 04/26/19 15:00 TWAN Inhibitors AdvReac Severe angioedema Verified 04/26/19 23:20 NSAIDS (Non-Steroidal AdvReac Severe angioedema Verified 04/26/19 23:20 Anti-Inflamma Home Medications Home Medications Medication Instructions Recorded Confirmed Type albuterol sulfate [Ventolin HFA] 2 puff INHALATION QID PRN 08/17/18 04/26/19 History docusate sodium [Stool Softener] 100 mg PO BID PRN 08/17/18 04/26/19 History fluticasone propionate [Flonase 2 spray INTRANASAL QAM PRN 08/17/18 04/26/19 History Allergy Relief] furosemide [Lasix] 20 mg PO DAILY PRN 08/17/18 04/26/19 History levothyroxine [Synthroid] 175 mcg PO QAM 08/17/18 04/26/19 History metformin [Glucophage] 1,000 mg PO BID 08/17/18 04/26/19 History blood sugar diagnostic strips #10 ea 03/06/19 04/26/19 History cholecalciferol (vitamin D3) 1,000 2,000 units PO QAM tab 03/06/19 04/26/19 History unit (25 mcg) tablet loratadine 10 mg tablet 0 mg PO QAM #30 tab 03/06/19 04/26/19 History lovastatin 20 mg tablet 0 mg PO HS #30 tab 03/06/19 04/26/19 History meloxicam 15 mg tablet 0 mg PO QAM #30 tab 03/06/19 04/26/19 History ferrous sulfate 0 mg PO QAM 03/26/19 04/26/19 History acetaminophen [Tylenol] 325 mg PO Q6H PRN 04/26/19 04/26/19 History lisinopril 10 mg PO DAILY 04/26/19 04/26/19 History Past Med/Surg History Medical History Asthma (Chronic) Chronic bilateral low back pain without sciatica (Chronic) Degenerative joint disease of cervical spine (Chronic) Herpes simplex (Chronic) Hirsutism (Chronic) Hyperlipidemia (Chronic) Hypothyroidism (Chronic) Intellectual disability (Chronic) Morbid obesity (Chronic) Polycystic ovarian syndrome (Chronic) Severe obstructive sleep apnea (Chronic) Type 2 diabetes mellitus (Chronic) Diabetes mellitus, type II (Chronic) History of abnormal uterine bleeding History of endometrial hyperplasia Surgical History H/O oral surgery History of endometrial biopsy S/P D&C (status post dilation and curettage) S/P tonsillectomy Family History Aunt Breast cancer maternal aunt Family/Other Diabetes Other Family history non-contributory Social History Preferred Language: French Communication Ability: Effective Beliefs That Will Affect Care: None Current Living Situation: Spouse Other Information That Helps Us Care for You: No Feels Safe at Home: Yes Safety Concerns: Feels Safe At This Time Smoking Status: Former smoker Hx Alcohol Use: Yes (social) Hx Substance Use: No Review of Systems Constitutional: no fever and no weight loss Eyes: no diplopia and no worsening vision Ear, Nose, Mouth, Throat: as per Subjective / HPI Respiratory: no cough and no dyspnea Cardiovascular: no chest pain, no palpitations and no edema Gastrointestinal: + diarrhea/loose stools (couple loose stools yesterday); no nausea, no vomiting, no constipation, no blood in stools and no melena Genitourinary: no dysuria and no hematuria Musculoskeletal: + joint pain Integumentary: no rash and no new lesions Neurologic: + headache(s) (chronic) Endocrine: no polydipsia and no polyuria blood sugars running in high 100s at home Hematologic / Lymphatic: + easy bruising and + lymphadenopathy (? cervical adenopathy); no easy bleeding Allergy / Immunological: may be allergic to cats Physical Exam Constitutional: WD/WN, vitals as above + obese; no acute distress Eyes: PERRL, conjunctivae normal, anicteric sclerae ENMT: Mouth: + tongue abnormality (moderate swelling) and + muffled voice Throat: uvula midline (not enlarged) no swelling of lips Neck: trachea midline, no thyromegaly no stridor; exam limited due to body habitus, no definite cervical adenopathy Respiratory: normal respiratory effort, lungs clear to auscultation Auscultation: no wheezes Cardiovascular: Rate/Rhythm: regular rate Heart Sounds: + murmur (II/ systolic murmur at base); no gallop and no cardiac rub Vessels: no JVD Extremities: no calf tenderness and no edema Gastrointestinal (Abdomen): normal bowel sounds, soft, nontender, no hepatosplenomegaly exam limited due to body habitus Musculoskeletal: Head/Neck/Chest: neck supple Extremities: strength 5/5 throughout; no cyanosis and no clubbing Skin: no rashes, warm and dry hirsutism Neurologic: PERRL, EOMI no facial palsy Psychiatric: Orientation: alert Lymphatic: no cervical lymphadenopathy (exam limited) Results & Data Vital Signs (Past 12 Hours) Vital Signs Temp Pulse Resp BP Pulse Ox 04/26/19 15:40 99 H 97 04/26/19 15:31 101 H 121/80 98 04/26/19 15:30 102 H 98 04/26/19 15:20 105 H 98 04/26/19 15:15 99 H 138/75 99 04/26/19 15:10 94 H 97 04/26/19 15:00 103 H 112/72 97 04/26/19 14:50 109 H 98 04/26/19 14:45 109 H 123/68 96 04/26/19 14:40 107 H 96 04/26/19 14:31 107 H 119/69 96 04/26/19 14:30 109 H 97 04/26/19 14:27 108 H 131/76 99 04/26/19 14:20 110 H 98 04/26/19 14:10 108 H 97 04/26/19 14:00 106 H 97 04/26/19 13:52 97 04/26/19 13:50 111 H 98 04/26/19 13:45 115 H 98 04/26/19 13:41 115 H 139/73 98 04/26/19 13:31 37.0 C 113 H 22 138/83 92 Laboratory Results Laboratory Results - last 24 hr 04/26/19 04/26/19 04/26/19 13:51 13:51 13:51 WBC 14.11 H RBC 4.10 L Hgb 10.7 L Hct 31.9 L MCV 77.8 L MCH 26.1 MCHC 33.5 RDW Std Deviation 44.6 RDW Coeff of Wojciech 15.6 H Plt Count 587 H MPV 8.5 Immature Gran % (Auto) 0.3 Neut % (Auto) 77.0 Lymph % (Auto) 15.5 [place] % (Auto) 5.2 Eos % (Auto) 1.9 Baso % (Auto) 0.1 Immature Gran # (Auto) 0.04 H Neut # (Auto) 10.86 H Lymph # (Auto) 2.19 [place] # (Auto) 0.73 H Eos # (Auto) 0.27 Baso # (Auto) 0.02 Sodium 133 L Potassium 3.8 Chloride 107 Carbon Dioxide 21 Anion Gap 5.0 BUN 12 Creatinine 0.80 Est Cr Clr Drug Dosing 128.4 Est GFR ( Amer) 106.1 Est GFR (Non-Af Amer) 91.6 BUN/Creatinine Ratio 14.8 Glucose 148 H POC Glucose Calcium 8.7 Total Bilirubin 0.2 AST 6 L ALT 12 Alkaline Phosphatase 141 H C-Reactive Protein 12.00 H Total Protein 8.1 Albumin 3.1 L Globulin 5.0 H Albumin/Globulin Ratio 0.6 L Lipase 100 Complement C4 04/26/19 04/26/19 04/26/19 13:51 17:48 21:03 WBC RBC Hgb Hct MCV MCH MCHC RDW Std Deviation RDW Coeff of Wojciech Plt Count MPV Immature Gran % (Auto) Neut % (Auto) Lymph % (Auto) [place] % (Auto) Eos % (Auto) Baso % (Auto) Immature Gran # (Auto) Neut # (Auto) Lymph # (Auto) [place] # (Auto) Eos # (Auto) Baso # (Auto) Sodium Potassium Chloride Carbon Dioxide Anion Gap BUN Creatinine Est Cr Clr Drug Dosing Est GFR ( Amer) Est GFR (Non-Af Amer) BUN/Creatinine Ratio Glucose POC Glucose 229 H 221 H Calcium Total Bilirubin AST ALT Alkaline Phosphatase C-Reactive Protein Total Protein Albumin Globulin Albumin/Globulin Ratio Lipase Complement C4 Pending Diagnostic Findings PORTABLE CHEST X-RAY FINDINGS: There are low lung volumes, unchanged. The heart is normal in size. The lungs are clear. No pleural effusions. No pneumothorax. IMPRESSION: No significant change compared to the prior study. No acute process. Electronically signed by: Kash Bearden M.D. 04/26/2019 2:[address] SOFT TISSUE NECK FINDINGS: Prevertebral soft tissues and the epiglottis are normal in thickness. Significant swelling within the upper anterior neck/sublingual location. This results in mild mass effect along the hypopharynx. No radiopaque foreign bodies. IMPRESSION: Significant soft tissue swelling within the upper anterior neck/sublingual location resulting in mild mass effect along the hypopharynx. Electronically signed by: Kash Bearden M.D. 04/26/2019 2:33 PM ECG Additional Comments: EKG performed at 13:[address] at 106/min, no acute change s. Code Status & VTE Plan VTE Prophylaxis Plan VTE Prophylaxis will be ordered: No (1) Angioedema Encounter type: initial encounter Qualified Code(s): T78.3XXA - Angioneurotic edema, initial encounter
[2019-04-26] MEDS ORDERED: DiphenhydrAMINE HCL 50 MG/ML VIAL IV PRN (16:57)
[2019-04-26] MEDS: SODIUM CHLORIDE 0.45 % 1,000 ML IV SCH (17:52)
[2019-04-26] MEDS ORDERED: DiphenhydrAMINE HCL 50 MG/ML VIAL IV SCH (18:00)
[2019-04-26] MEDS ORDERED: GLUCOSE 10 TABS/TUBE PO PRN (18:30)
[2019-04-26] MEDS ORDERED: GLUCAGON FOR INJ 1 MG VIAL IM PRN (18:30)
[2019-04-26] MEDS ORDERED: GLUCOSE 40% GEL 15 GM TUBE PO PRN (18:30)
[2019-04-26] MEDS ORDERED: DEXTROSE 50% 50 ML SYRINGE IV PRN (18:30)
[2019-04-26] MEDS ORDERED: CARBOHYDRATES FOR HYPOGLYCEMIA PO PRN (18:30)
[2019-04-26] MEDS: RACEPINEPHRINE 2.25% NEBU SOLN 0.5 ML VIAL NEB SCH (19:01)
[2019-04-26] MEDS ORDERED: Nursing to Pharmacy Communication ONE (19:21)
[2019-04-26] MEDS ORDERED: INSULIN ASPART 100 UNITS/ML 3 ML PEN SC SCH (21:00)
[2019-04-26] MEDS ORDERED: LOVASTATIN 20 MG TAB PO SCH (21:00)
[2019-04-26] MEDS: methylPREDNISolone 40 MG in SYRINGE 0 ML IV SCH (21:01)
[2019-04-26] MEDS ORDERED: methylPREDNISolone 80 MG in SYRINGE 0 ML IV ONE (21:45)
[2019-04-26] MEDS: INSULIN GLARGINE SOLOSTAR 100 UNITS/ML 3 ML PEN SC SCH (21:54)
[2019-04-26] MEDS ORDERED: ACETAMINOPHEN 65 ML IV PRN (23:30)
[2019-04-26] MEDS: DiphenhydrAMINE HCL 50 MG/ML VIAL IV SCH (23:45)
[2019-04-26] MEDS: INSULIN ASPART 100 UNITS/ML 3 ML PEN SC SCH (23:54)
[2019-04-27] MEDS ORDERED: ONDANSETRON INJ 2 MG/ML 2 ML VIAL IV STA (00:17)
[2019-04-27] MEDS: SODIUM CHLORIDE 0.45 % 1,000 ML IV SCH (02:26)
[2019-04-27] MEDS: DiphenhydrAMINE HCL 50 MG/ML VIAL IV SCH ×2 (05:51→12:14)
[2019-04-27] MEDS: methylPREDNISolone 40 MG in SYRINGE 0 ML IV SCH (05:56)
[2019-04-27] MEDS: INSULIN ASPART 100 UNITS/ML 3 ML PEN SC SCH ×2 (05:57→13:07)
[2019-04-27] MEDS ORDERED: LEVOTHYROXINE SODIUM 175 MCG TABLET PO SCH (06:30)
[2019-04-27] MEDS: RACEPINEPHRINE 2.25% NEBU SOLN 0.5 ML VIAL NEB SCH (07:02)
[2019-04-27 07:28] LABS: BUN Creatinine Ratio 18.4 (10-20); Calcium 7.9 mg/dl (8.5-10.1); Creatinine Clr Calc Pharmacy 140.9 ml/min; Est GFR (African American) 118.6; Est GFR (Non-African American) 102.3; Potassium 3.8 mmol/L (3.5-5.1)
[2019-04-27 08:02] LABS: Estimated Average Glucose 163 mg/dl; Hemoglobin A1C 7.3 % (4.5-5.6)
[2019-04-27] MEDS: INSULIN GLARGINE SOLOSTAR 100 UNITS/ML 3 ML PEN SC SCH (08:52)
[2019-04-27] MEDS ORDERED: LORATADINE 10 MG TAB PO SCH (09:00)
--- NOTE | 2019-04-27 12:04 | Discharge Summary ---
Date of Service April 27, 2019 Admission HPI Per Admitting Provider 43-year-old female followed by Dr. Burns for Family Medicine. History of hypertension, diabetes mellitus type 2, polycystic ovary disease, cognitive disability, and other problems noted below. She was started on lisinopril about a month ago for hypertension. 2 days prior to admission she noticed some swelling of her upper lip. She thought that the swelling might be secondary to herpes labialis. This morning she noticed swelling of her tongue and difficulty swallowing. She was able to swallow liquids without difficulty. also noted that her voice was muffled. No stridor, wheezing, or respiratory distress. As noted, she was started on lisinopril about a month ago for hypertension. She also takes meloxicam for joint pain. Principal Diagnosis ANGIOEDEMA/SWELLING OF LIPS AND TONGUES/ALLERGIC REACTION TO MEDS: ALLERGY TO LISINOPRIL: ALLERGIES TO NSAID Discharge Exam Constitutional WD/WN, vitals as above no acute distress Eyes PERRL, conjunctivae normal, anicteric sclerae ENMT Mouth: no lip abnormality (no lip swelling ) and no tongue abnormality (resolution of tongue swelling ) Neck trachea midline, no thyromegaly Respiratory normal respiratory effort, lungs clear to auscultation Cardiovascular RRR, no murmur, no edema Gastrointestinal (Abdomen) normal bowel sounds, soft, nontender, no hepatosplenomegaly Musculoskeletal no cyanosis or clubbing, extremities motor strength 5/5 Skin no rashes, warm and dry Neurologic PERRL, EOMI, accommodation nl, no face palsy, no dysarthria Psychiatric A+Ox3, euthymic affect Discharge Data Allergies Allergy/AdvReac Type Severity Reaction Status Date / Time No Known Drug Allergies Allergy Verified 04/26/19 15:00 TWAN Inhibitors AdvReac Severe angioedema Verified 04/26/19 23:20 NSAIDS (Non-Steroidal AdvReac Severe angioedema Verified 04/26/19 23:20 Anti-Inflamma Consultations 04/26/19 14:57 ED Decision to Admit Stat Hospital Course (1) Angioedema: Angioedema. presented with sudden onset of lip and toung swelling no SOB or stridor possibly due to Lisinopril was started about a month ago Lisinopril discontinued and all TWAN inhibitor should be avoided in the future.( added to her allergy list ) Patient was taking meloxicam.-NSAID has related to angioedema as well pt is asked avoid nonsteroidal anti-inflammatory drugs as well ( added to drug allergy list ) Patient's swelling of tongue and lips has resolved diet advanced to regular , no dysphagia or swallowing issues No stridor, wheezing, respiratory distress. stable to be discharged home today (2) Hypertension: Discontinue lisinopril and avoid TWAN inhibitors -angioedemea /added to drug allergy list BP was 151/85 added Norvasc 5mg daily repeat BP improved 121/85 discharged home today counselling provided not to take Lisinorpril for blood pressure new BP med : Norvasc 5 mg daily Hospital follow-up scheduled for tomorrow 04/28/19 (3) Asthma: Complaint of respiratory distress, no cough no shortness of breath or asthma Asthma stable. Nebulizers as needed. (4) Diabetes mellitus type 2, controlled: History of diabetes mellitus type 2, managed with metformin. hb A1c 7.3, represent good glycemic management Patient developed hyperglycemia due to large amount (5) Hypothyroidism: TSH was normal in January 2019. Continue levothyroxine. (6) Polycystic ovarian syndrome: Continue on metformin (7) DVT prophylaxis: SCDs. Ambulate. (8) Discharge planning issues: Stable to be discharged home today Family Medicine follow-up with Dr. Burns. Total Time Total Time Spent Total Time Spent (In Minutes): Approximately 35 minutes Total Time Includes: Examination of the Patient, Discharge Planning and Medication Reconciliation Discharge Plan Discharge Items Patient Disposition: Home - Self-Care Reason For Visit: ANGIOEDEMA Discharge Diagnosis: ANGIOEDEMA/SWELLING OF LIPS AND TONGUES/ALLERGIC REACTION TO MEDS: ALLERGY TO LISINOPRIL: ALLERGIES TO NSAID Activity: Resume your previous activity Non-emergency contact: Primary Care Provider Call non-emergency contact if: you have any medication questions Follow-up/Referrals: Maxi Burns MD [Primary Care Provider] - 04/28/19 10:45 am Diet: Carb Consistent or DM2 and Heart Healthy Addtl Attending Provider Instructions: Hospital follow-up with Dr. Mcgill tomorrow 04/28/2019 at 10:45 AM Do not take lisinopril:-Your previous blood pressure medication Do not take meloxicam, Motrin, Aleve, ibuprofen You are started on a new blood pressure medication: Norvasc 5 mg by mouth daily Pending Studies at Discharge: No Stand-Alone Forms: My [facility] Medications and DC Order Prescriptions: New amlodipine [Norvasc] 5 mg tablet 5 mg PO DAILY Qty: 30 RF: 3 prednisone 5 mg tablet 5 mg PO UD Qty: 3 RF: 0 Continued cholecalciferol (vitamin D3) 1,000 unit (25 mcg) tablet 2,000 units PO QAM RF: 0 loratadine 10 mg tablet 10 mg PO QAM Qty: 30 RF: 0 lovastatin 20 mg tablet 20 mg PO HS Qty: 30 RF: 0 ferrous sulfate PO QAM RF: 0 metformin [Glucophage] 1,000 mg Tablet 1,000 mg PO BID RF: 0 docusate sodium [Stool Softener] 100 mg Capsule 100 mg PO BID PRN (Reason: Constipation) RF: 0 furosemide [Lasix] 20 mg Tablet 20 mg PO DAILY PRN (Reason: Fluid Retention) RF: 0 albuterol sulfate [Ventolin HFA] 90 mcg/actuation Hfa Aerosol Inhaler 2 puff INHALATION QID PRN (Reason: Shortness Of Breath) RF: 0 fluticasone propionate [Flonase Allergy Relief] 50 mcg/actuation [place],Suspension 2 spray INTRANASAL QAM PRN (Reason: Allergy Symptoms) RF: 0 acetaminophen [Tylenol] 325 mg Tablet 325 mg PO Q6H PRN (Reason: Pain) RF: 0 valacyclovir 500 mg Tablet 1,000 mg PO DAILY RF: 0 levothyroxine 200 mcg Tablet 200 mcg PO DAILY RF: 0 duloxetine 20 mg Capsule,Delayed Release(Dr/Ec) 40 mg PO DAILY RF: 0 semaglutide 0.25 mg or 0.5 mg(2 mg/1.5 mL) Pen Injector 0.25 mg SUBCUT WK RF: 0 Discontinued meloxicam 15 mg tablet PO QAM Qty: 30 RF: 0 lisinopril 10 mg Tablet 10 mg PO DAILY RF: 0 No Action OneTouch Verio strip .ROUTE .MEDSUPPLY Qty: 10 RF: 0 Discharge Orders: Discharge Order (Routine); Ordered 04/27/19 Ordered By: Zina Atkinson Admission Data Admit Date/Time: 04/26/19 15:55 Attending Provider: Zina Atkinson Admit Provider: Carlos Enrique Ramírez Primary Care Provider: Maxi Burns Other Providers: Carlos Enrique Ramírez
[2019-04-27] MEDS ORDERED: INSULIN ASPART 100 UNITS/ML 3 ML PEN SC SCH ×2 (12:09→16:30)
[2019-04-27] MEDS ORDERED: PHARMACY GLYCEMIC MGMT CONSULT SCH (12:39)
[2019-04-27] MEDS ORDERED: AMLODIPINE BESYLATE 5 MG TAB PO ONE (12:45)
--- NOTE | 2019-04-27 13:18 | Pharmacy Report ---
Pharmacy Glycemic Short Note 2 - Date of Service April 27, 2019 - Glycemic Short BSG Results (Last 24 hours): 04/26/19 04/26/19 04/26/19 13:51 17:48 21:03 Glucose 148 H POC Glucose 229 H 221 H 04/26/19 04/27/19 04/27/19 23:53 05:46 06:46 Glucose 241 H POC Glucose 198 H 241 H 04/27/19 11:33 Glucose POC Glucose 254 H OUTPATIENT ANTIDIABETIC REGIMEN: * Metformin 1gm PO BID * Semaglutide 0.25mg SQ Q week * A1c = 7.3%, 04/27/19 ASSESSMENT: * Type 2 diabetic admitted for angioedema * Pt is well controlled on her home regimen per recent A1c * Pt received multiple doses of IV steroids this admission, with subsequent hyperglycemia * Steroids have now been d/c'd and plan is for pt to be discharged w/o steroid therapy * Will continue Novolog in higher doses at this time (OK to use Provider's order for CF 15 and CR 8 w/ lunch coverage), with plan to achieve BSG less than 200 for discharge today per Provider's request * I do believe the effects of steroids will dissipate over the next 12-24 hrs, thus I would not want to give further doses of basal insulin. Will use Novolog more frequently to achieve our goals PLAN FOR INPATIENT GLYCEMIC CONTROL: * Resume metformin with dinner * Basal insulin * None at this time * Bolus insulin * NovoLog per scale ACHS or Q6hrs while NPO * Goal Range: Low 110 mg/dL - High 140 mg/dL * Correction Factor: 20 mg/dL/unit * Nutritional / Prandial insulin per carb ratio of 1 unit per 6 grams CHO consumed * Will recheck BSG 1 hr after lunchtime coverage PLAN FOR DISCHARGE: * resume home meds (metformin + semaglutide)
[2019-04-27] MEDS ORDERED: INSULIN ASPART 100 UNITS/ML 3 ML PEN SC ONE (14:30)
[2019-04-27] MEDS ORDERED: INSULIN HUMAN REGULAR PER UNIT 6 UNITS in SYRINGE 0 ML IV ONE (14:30)
[2019-04-27] MEDS ORDERED: METFORMIN HCL 500 MG TAB PO SCH (17:00)
[2019-04-27] MEDS ORDERED: INSULIN GLARGINE SOLOSTAR 100 UNITS/ML 3 ML PEN SC SCH (21:00)
== END 2019-04-27 18:34 | disposition home or self-care (01) ==
LOC: ED 13:22 → 2E 13:22 → SUATTDRO 15:55 → 2E 16:27

== ENCOUNTER 2019-10-13 20:15 | Inpatient (IN) ==
[2019-10-13] MEDS ORDERED: DEXAMETHASONE **PF** INJ 10 MG/ML VIAL IV ONE (21:06)
[2019-10-13] MEDS ORDERED: ALBUT/IPRATROP 3MG/0.5MG NEB 3 ML VIAL NEB ONE (21:06)
[2019-10-13] MEDS ORDERED: SODIUM CHLORIDE 0.9% 1000ML 2,000 ML IV SCH (21:15)
[2019-10-13 21:48] LABS: Basophils # (auto) 0.03 K/uL (0-0.2); Basophils % (auto) 0.3 %; Eosinophils # (auto) 0.14 K/uL (0-0.5); Eosinophils % (auto) 1.3 %; Hematocrit (blood only) 35.8 % (37-47); Hemoglobin 11.7 g/dL (12.0-16.0); Immature Granulocytes # (auto) 0.03 K/uL (0.00-0.02); Immature Granulocytes % (auto) 0.3 %; Lymphocytes # (auto) 2.76 K/uL (1.2-3.4); Lymphocytes % (auto) 25.7 %; Mean Corpuscular Hemoglobin 26.5 pg (25-34); Mean Corpuscular Hgb Conc 32.7 g/dL (32-36); Mean Platelet Volume 8.9 fL (7.4-10.4); Monocytes # (auto) 0.65 K/uL (0.11-0.59); Monocytes % (auto) 6.1 %; Neutrophils # (auto) 7.11 K/uL (1.4-6.5); Neutrophils % (auto) 66.3 %; Platelet Count 593 K/uL (130-400); RDW Coefficient of Variation 15.8 % (11.5-14.5); RDW Standard Deviation 46.6 fL (36.4-46.3); Red Blood Count 4.42 M/uL (4.2-5.4); White Blood Count 10.72 K/uL (4.8-10.8)
[2019-10-13 22:01] LABS: Pregnancy Test, Serum Negative (Negative)
--- NOTE | 2019-10-13 22:06 | XRay Report ---
XR chest 1V portable CLINICAL HISTORY: Chest pain. COMPARISON STUDY: Chest radiograph April 26, 2019. FINDINGS: There is no pneumothorax. There has been interval development of a large right pleural effu huang with significant decrease in right lung aeration. Left lung is clear. There is no evidence for p ulmonary edema. Mild to moderate cardiomegaly is noted. IMPRESSION: Extensive right hemithorax opacity. Large right pleural effusion of uncertain etiology wi th significant right lung atelectasis or consolidation. Radiographic follow up is recommended. ACT 112: Negative or not required by law. Electronically signed by: Eric Zuniga M.D. 10/13/2019 10:05 PM
[2019-10-13 22:07] LABS: Alanine Aminotransferase 13 U/L (12-78); Aspartate Aminotransferase 9 U/L (15-37); BUN Creatinine Ratio 17.2 (10-20); Blood Urea Nitrogen 13 mg/dl (7-18); Calcium 8.6 mg/dl (8.5-10.1); Carbon Dioxide 21 mmol/L (21-32); Chloride 108 mmol/L (98-107); Creatinine Clr Calc Pharmacy 132.7 ml/min; Est GFR (African American) 112.1; Est GFR (Non-African American) 96.8; Glucose 178 mg/dl (70-99); Potassium 3.7 mmol/L (3.5-5.1); Sodium 137 mmol/L (136-145)
[2019-10-13 22:17] LABS: Albumin Globulin Ratio 0.7 (0.9-2); Alkaline Phosphatase 94 U/L (45-117); Bilirubin,Total < 0.1 mg/dl (0.2-1); Globulin 4.5 gm/dl (2.5-4.0); Phosphorus 2.9 mg/dl (2.5-4.9); Total Protein 7.5 gm/dl (6.4-8.2)
[2019-10-13 22:30] LABS: Influenza A virus by PCR Neg for Influ A (Neg); Influenza B virus by PCR Neg for Influ B (Neg)
[2019-10-13] MEDS ORDERED: IOVERSOL 100ml IV PRN (22:32)
[2019-10-13] MEDS ORDERED: PIPERACILLIN/TAZOBACTAM 4.5 GM/120 ML BAG IV ONE (22:53)
[2019-10-13] MEDS ORDERED: VANCOMYCIN CONSULT ACTIVE PRN (22:53)
[2019-10-13] MEDS ORDERED: VANCOMYCIN HCL 2,500 MG in SODIUM CHLORIDE 0.9% 500 ML IV ONE (22:53)
[2019-10-13] MEDS ORDERED: PIPERACILL/TAZOBAC CONSULT ACTIVE PRN (22:53)
--- NOTE | 2019-10-13 22:59 | CT Scan Report ---
CT OF THE CHEST WITH IV CONTRAST CLINICAL HISTORY: Shortness of breath. Evaluate effusion. COMPARISON STUDY: Chest CT August 17, 2018. Chest radiograph performed earlier today. TECHNIQUE: Following IV administration of 93 mL of Optiray-320, helical axial images of the chest we re obtained. Sagittal and coronal reconstructions were viewed as well as maximal intensity projectio ns on an independent 3-D workstation. Automated exposure control was utilized for the study. A dose lowering technique was utilized adhering to the principles of ALARA. CT DOSE: 704.43 mGycm FINDINGS: A large right pleural effusion occupies 80% of the right hemithorax. There is no left pleu ral effusion. There is no pneumothorax. Lungs are suboptimally assessed given respiratory motion. The re is subtotal right lower lobe collapse due to the right pleural effusion. Note is also made of sign ificant right upper and right middle lobe atelectasis. No pleural-based masses are identified. There are no enlarged thoracic lymph nodes. Mild leftward mediastinal shift due to the pleural effusion is noted. Size of the heart is at the upper limits of normal. There is no pericardial effusion. No suspi cious osseous lesions within the bony thorax are noted. Visualized portions of the upper abdomen demo nstrate probable hepatomegaly although the liver is only partially imaged. A small amount of perihepa tic ascites is noted. Lateral segment of the liver is enlarged. IMPRESSION: 1. Large right pleural effusion which occupies approximately 80% of the right hemithorax. Subtotal ri ght lower lobe atelectasis and segmental right upper and right middle lobe atelectasis. Consolidation could appear similar but is considered less likely. The etiology for this pleural effusion is not cl ear by CT. Although within the differential, no CT evidence for malignancy. The findings could be cor related with thoracentesis results. 2. Probable hepatomegaly with a small amount of perihepatic fluid. Enlargement of the lateral segment of the liver, partially imaged on this exam. ACT 112: Negative or not required by law. Electronically signed by: Eric Zuniga M.D. 10/13/2019 10:57 PM
--- NOTE | 2019-10-13 23:15 | Emergency Department Note ---
Impression & Plan Pleural effusion, Pneumonia, Asthma exacerbation, Shortness of breath ED Provider Note NAME: LUCIO CULP AGE: 44 SEX: F ARRIVES VIA: Walk-In INFORMANT: Patient, ED PROVIDER(S): Eran Weaver MD CHIEF COMPLAINT: Shortness of breath. PLAN: Disposition: Admit MEDICAL DECISION MAKING: The patient is a pleasant 44-year-old woman with a past medical history of asthma, GENET noncompliant with CPAP, history of angioedema due to lisinopril, hypertension, hyperlipidemia, PCOS, intellectual delay, NIDDM 2, hypothyroidism who presents emergency department with cough congestion and shortness of breath that has progressively worsened over the past several weeks with symptoms beginning around September 20. The patient reports she saw her PCP last week and was diagnosed with bronchitis. He does report that she lives with 8 cats and in the past has believes she is allergic to these cats but relates to them as "her babies" and does not want to get rid of them. She also reports her smokes around her. She denies any travel to high risk areas or contact with individuals with confirmed diagnosis of the novel coronavirus. She does report she frequently visits with her mother but denies her mother having any respiratory symptoms. However, the patient's sister presented tonight for evaluation and was admitted. On arrival the patient is mildly dyspneic appearing with diminished breath sounds of the right lung rose and scant intermittent wheezes. Chest x-ray demonstrates large right pleural effusion involving the right hemithorax, which is further seen on CT. WBC within normal limits. H/H 11.7/35.8 similar to prior range of values. Platelets 593, nonspecific and possibly reactive but also similar to prior values. Chemistry without acidosis. Electrolytes and LFTs unremarkable. Flu negative. Patient does not have any clear risk factors for Covid, given her prolonged symptoms and with concerning imaging findings she was tested for Covid. Given her large effusion of unclear etiology we will treat with broad-spectrum antibiotics with Zosyn (which would cover Pasteurella given her cat exposure) and vancomycin. Patient with improvement after IVF hydration and duoneb. Comfortable on 2L NC, will defer thoracentesis for now, pending admitting team pulm c/s. Case was discussed with Dr. Reyna, [facility] hospitalist, who will evaluate the patient for admission. Triage Nursing notes reviewed and agree them. Prior medical records reviewed Vital Signs: reviewed and remarkable for no significant abnormalities Differential diagnosis: Reactive airway disease, pneumonia, pneumothorax, COPD, CHF, infections, cardiac ischemia, pulmonary embolism, musculoskeletal, gastrointestinal, as well as other pathologies. ER treatment provided: See below. Diagnostics interpreted by me: ECG: Sinus rhythm with short [place], 90 bpm, normal axis, nonspecific T wave abnormality, no overt ST elevation or depression, QTC 451, QRS 88. Cardiac Monitoring: Sinus rhythm, 90 bpm, no ectopy. Laboratory studies: See below Imaging studies: XR chest 1V portable CLINICAL HISTORY: Chest pain. COMPARISON STUDY: Chest radiograph April 26, 2019. FINDINGS: There is no pneumothorax. There has been interval development of a large right pleural effusion with significant decrease in right lung aeration. Left lung is clear. There is no evidence for pulmonary edema. Mild to moderate cardiomegaly is noted. IMPRESSION: Extensive right hemithorax opacity. Large right pleural effusion of uncertain etiology with significant right lung atelectasis or consolidation. Radiographic follow up is recommended. -- CT OF THE CHEST WITH IV CONTRAST CLINICAL HISTORY: Shortness of breath. Evaluate effusion. COMPARISON STUDY: Chest CT August 17, 2018. Chest radiograph performed earlier today. TECHNIQUE: Following IV administration of 93 mL of Optiray-320, helical axial images of the chest were obtained. Sagittal and coronal reconstructions were viewed as well as maximal intensity projections on an independent 3-D workstation. Automated exposure control was utilized for the study. A dose lo wering technique was utilized adhering to the principles of ALARA. CT DOSE: 704.43 mGycm FINDINGS: A large right pleural effusion occupies 80% of the right hemithorax. There is no left pleural effusion. There is no pneumothorax. Lungs are suboptimally assessed given respiratory motion. There is subtotal right lower lobe collapse due to the right pleural effusion. Note is also made of signific ant right upper and right middle lobe atelectasis. No pleural-based masses are identified. There are no enlarged thoracic lymph nodes. Mild leftward mediastinal shift due to the pleural effusion is noted. Size of the heart is at the upper limits of normal. There is no pericardial effusion. No suspicious osseous lesions within the bony thorax are noted. Visualized portions of the upper abdomen demonstrate probable hepatomegaly although the liver is only partially imaged. A small amount of perihepatic ascites is noted. Lateral segment of the liver is enlarged. IMPRESSION: 1. Large right pleural effusion which occupies approximately 80% of the right hemithorax. Subtotal right lower lobe atelectasis and segmental right upper and right middle lobe atelectasis. Consolidation could appear similar but is considered less likely. The etiology for this pleural effusion is not clear by CT. Although within the differential, no CT evidence for malignancy. The findings could be correlated with thoracentesis results. 2. Probable hepatomegaly with a small amount of perihepatic fluid. Enlargement of the lateral segment of the liver, partially imaged on this exam. Consultation(s): None HPI: The patient is a pleasant 44-year-old woman with a past medical history of asthma, GENET noncompliant with CPAP, history of angioedema due to lisinopril, hypertension, hyperlipidemia, PCOS, intellectual delay, NIDDM 2, hypothyroidism who presents emergency department with cough congestion and shortness of breath that has progressively worsened over the past several weeks with symptoms beginning around September 20. The patient reports she saw her PCP last week and was diagnosed with bronchitis. He does report that she lives with 8 cats and in the past has believes she is allergic to these cats but relates to them as "her babies" and does not want to get rid of them. She also reports her smokes around her. She denies any travel to high risk areas or contact with individuals with confirmed diagnosis of the novel coronavirus. She does report she frequently visits with her mother but denies her mother having any respiratory symptoms. However, the patient's sister presented tonight for evaluation and was admitted. ROS: See above HPI for pertinent positives & negatives. A total of 10 systems reviewed and were otherwise negative. PAST MEDICAL HISTORY:See Below PAST SURGICAL HISTORY:See Below FAMILY HISTORY:See Below SOCIAL HISTORY:See Below HOME MEDICATIONS:See Below ALLERGIES:See Below VITALS:See Below PHYSICAL EXAMINATION: GENERAL: Awake, alert, mildly dyspneic-appearing, in no distress. BMI 45.9kg/m2 HENT: Normocephalic, atraumatic. Oropharynx with dry mucous membranes and otherwise unremarkable. EYES: Normal conjunctiva. Sclera non-icteric. NECK: Supple. No nuchal rigidity. FROM. No JVD. RESPIRATORY: Diminished breath sounds in the right lung rose with scant intermittent wheezes throughout. CARDIAC: Tachycardic rate, normal rhythm. Extremities warm and well perfused. Pulses equal. ABDOMEN: Soft, non-distended. No tenderness to palpation. No rebound or guarding. No masses. RECTAL: Deferred. MUSCULOSKELETAL: Chest examination reveals no tenderness. The back is symmetrical on inspection without obvious abnormality. There is no CVA tenderness to palpation. No joint edema. LOWER EXTREMITIES: Calves are equal size bilaterally and non-tender. Scant BLE edema. No discoloration. NEURO: Normal sensorium. No sensory or motor deficits noted. SKIN: No rash or jaundice noted. ED COURSE: Critical Care: I have personally spent greater than 45 minutes of critical care time in the direct management of this patient. This includes bedside care, interpretation of diagnostic studies, and testing, discussion with consultants, patient, and family members, and other required patient management activities. This 45 minutes is in excess of all separately billable procedures. Eran Weaver MD Past Med/Surg History Medical History Asthma (Chronic) Chronic bilateral low back pain without sciatica (Chronic) Degenerative joint disease of cervical spine (Chronic) Diabetes mellitus type 2, controlled (Chronic) Diabetes mellitus, type II (Chronic) Herpes simplex (Chronic) Hirsutism (Chronic) History of abnormal uterine bleeding History of endometrial hyperplasia Hyperlipidemia (Chronic) Hypertension (Chronic) Hypothyroidism (Chronic) Intellectual disability (Chronic) Morbid obesity (Chronic) Polycystic ovarian syndrome (Chronic) Severe obstructive sleep apnea (Chronic) Type 2 diabetes mellitus (Chronic) Surgical History H/O oral surgery History of endometrial biopsy S/P D&C (status post dilation and curettage) S/P tonsillectomy Family History Aunt Breast cancer maternal aunt Family/Other Diabetes Other Family history non-contributory Denies family history of Ovarian cancer Colorectal cancer Social History Preferred Language: Indian Communication Ability: Effective 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 Beliefs That Will Affect Care: None Current Living Situation: Spouse Other Information That Helps Us Care for You: No Feels Safe at Home: Yes Safety Concerns: Feels Safe At This Time Smoking Status: Unknown if ever smoked Hx Alcohol Use: No Hx Substance Use: No Allergies Allergies Allergy/AdvReac Type Severity Reaction Status Date / Time lisinopril Allergy Severe swelling Verified 10/13/19 22:30 of face, lips, tongue TWAN Inhibitors AdvReac Severe angioedema Verified 07/29/19 14:14 NSAIDS (Non-Steroidal AdvReac Severe angioedema Verified 07/29/19 14:14 Anti-Inflamma Home Meds Home Medications Medication Instructions Recorded Confirmed docusate sodium [Stool Softener] 100 mg PO BID PRN 08/17/18 10/13/19 fluticasone propionate [Flonase 2 spray INTRANASAL QAM PRN 08/17/18 10/13/19 Allergy Relief] furosemide [Lasix] 20 mg PO DAILY PRN 08/17/18 10/13/19 metformin [Glucophage] 1,000 mg PO BID 08/17/18 10/13/19 blood sugar diagnostic #10 ea 03/06/19 07/29/19 loratadine 10 mg tablet 10 mg PO QAM #30 tab 03/06/19 10/13/19 acetaminophen [Tylenol] 325 mg PO Q6H PRN 04/26/19 10/13/19 duloxetine 40 mg PO DAILY 04/27/19 10/13/19 levothyroxine 200 mcg PO DAILY 04/27/19 10/13/19 semaglutide 0.25 mg SUBCUT WK 04/27/19 10/13/19 valacyclovir 1,000 mg PO DAILY 04/27/19 10/13/19 calcium carbonate-vitamin D3 1 tab PO DAILY 10/13/19 10/13/19 [Caltrate 600 plus D] cyanocobalamin (vitamin B-12) 1,000 mcg PO DAILY 10/13/19 10/13/19 [Vitamin B-12] dulaglutide [Trulicity] 0.75 mg SUBCUT WK 10/13/19 10/13/19 ferrous sulfate 325 mg PO BID 10/13/19 10/13/19 Previous Rx's Medication Instructions Recorded amlodipine [Norvasc] 5 mg PO DAILY #30 tab 04/27/19 albuterol sulfate 90 mcg/actuation 2 puff INHALATION QID PRN #18 gm 07/09/19 aerosol inhaler Results & Data (ED) Vital Signs Vital Signs - 24 hr 10/13/19 20:28 10/13/19 21:37 10/13/19 21:39 Temperature 36.9 C Temperature Source Oral Pulse Rate 99 H 100 H 101 H Pulse Rate [Right Finger] Pulse Rate from SpO2 Sensor 101 H 102 H Respiratory Rate 28 H 29 H 31 H Respiratory Effort / Characteristics Respiratory Depth Respiratory Pattern Blood Pressure 175/109 H 151/100 H Blood Pressure [Right Arm] Blood Pressure Mean 131 108 Blood Pressure Mean [Right Arm] Blood Pressure Position [Right Arm] Pulse Oximetry 95 94 94 Oxygen Delivery Method Room Air Room Air Sepsis Recent Fever Within 48 Hours No Sepsis Action Taken by Nursing No Action Required 10/13/19 21:41 10/13/19 21:46 10/13/19 21:50 Temperature Temperature Source Pulse Rate 101 H 98 H Pulse Rate [Right Finger] Pulse Rate from SpO2 Sensor 102 H 99 H Respiratory Rate 28 H 31 H Respiratory Effort / Characteristics Spontaneous Labored Respiratory Depth Shallow Respiratory Pattern Tachypnea Blood Pressure Blood Pressure [Right Arm] Blood Pressure Mean Blood Pressure Mean [Right Arm] Blood Pressure Position [Right Arm] Pulse Oximetry 94 95 94 Oxygen Delivery Method Room Air Sepsis Recent Fever Within 48 Hours Sepsis Action Taken by Nursing 10/13/19 22:00 10/13/19 22:01 10/13/19 22:10 Temperature Temperature Source Pulse Rate 100 H 97 H Pulse Rate [Right Finger] 99 H Pulse Rate from SpO2 Sensor 100 H 97 H Respiratory Rate 31 H 22 33 H Respiratory Effort / Characteristics Spontaneous Short of Breath Respiratory Depth Respiratory Pattern Blood Pressure 158/112 H Blood Pressure [Right Arm] Blood Pressure Mean 117 Blood Pressure Mean [Right Arm] Blood Pressure Position [Right Arm] Pulse Oximetry 98 94 96 Oxygen Delivery Method Room Air Sepsis Recent Fever Within 48 Hours Sepsis Action Taken by Nursing 10/13/19 22:20 10/13/19 22:44 10/13/19 23:10 Temperature Temperature Source Pulse Rate 107 H 100 H Pulse Rate [Right Finger] 101 H Pulse Rate from SpO2 Sensor 104 H 100 H Respiratory Rate 29 H 32 H 18 Respiratory Effort / Characteristics Respiratory Depth Normal Respiratory Pattern Blood Pressure 160/93 H Blood Pressure [Right Arm] 167/91 H Blood Pressure Mean 99 Blood Pressure Mean [Right Arm] 116 Blood Pressure Position [Right Arm] Sitting Pulse Oximetry 96 96 96 Oxygen Delivery Method Nebulizer Sepsis Recent Fever Within 48 Hours Sepsis Action Taken by Nursing Laboratory Data Attestation: I reviewed the patient's lab results. Result diagrams: 10/13/19 21:35 10/13/19 21:35 Lab Results 10/13/19 10/13/19 10/13/19 Range/Units 21:35 21:35 21:35 WBC 10.72 (4.8-10.8) K/uL RBC 4.42 (4.2-5.4) M/uL Hgb 11.7 L (12.0-16.0) g/dL Hct 35.8 L (37-47) % MCV 81.0 (80-100) fL MCH 26.5 (25-34) pg MCHC 32.7 (32-36) g/dL RDW Std Deviation 46.6 H (36.4-46.3) fL RDW Coeff of Wojciech 15.8 H (11.5-14.5) % Plt Count 593 H (130-400) K/uL MPV 8.9 (7.4-10.4) fL Immature Gran % (Auto) 0.3 % Neut % (Auto) 66.3 % Lymph % (Auto) 25.7 % [place] % (Auto) 6.1 % Eos % (Auto) 1.3 % Baso % (Auto) 0.3 % Immature Gran # (Auto) 0.03 H (0.00-0.02) K/uL Neut # (Auto) 7.11 H (1.4-6.5) K/uL Lymph # (Auto) 2.76 (1.2-3.4) K/uL [place] # (Auto) 0.65 H (0.11-0.59) K/uL Eos # (Auto) 0.14 (0-0.5) K/uL Baso # (Auto) 0.03 (0-0.2) K/uL Sodium 137 (136-145) mmol/L Potassium 3.7 (3.5-5.1) mmol/L Chloride 108 H (98-107) mmol/L Carbon Dioxide 21 (21-32) mmol/L Anion Gap 8.0 (3-11) BUN 13 (7-18) mg/dl Creatinine 0.76 (0.6-1.2) mg/dl Est Cr Clr Drug Dosing 132.7 ml/min Est GFR ( Amer) 112.1 Est GFR (Non-Af Amer) 96.8 BUN/Creatinine Ratio 17.2 (10-20) Glucose 178 H (70-99) mg/dl Lactate (0.4-2.0) mmol/L Calcium 8.6 (8.5-10.1) mg/dl Phosphorus 2.9 (2.5-4.9) mg/dl Magnesium 2.0 (1.8-2.4) mg/dl Total Bilirubin < 0.1 L (0.2-1) mg/dl AST 9 L (15-37) U/L ALT 13 (12-78) U/L Alkaline Phosphatase 94 (45-117) U/L Total Protein 7.5 (6.4-8.2) gm/dl Albumin 3.0 L (3.4-5.0) gm/dl Globulin 4.5 H (2.5-4.0) gm/dl Albumin/Globulin Ratio 0.7 L (0.9-2) Procalcitonin (0-0.5) ng/ml TSH 1.980 (0.300-4.500) uIu/ml HCG, Qual Negative (Negative) Influenza Type A (PCR) (Neg) Influenza Type B (PCR) (Neg) 10/13/19 10/13/19 10/13/19 Range/Units 21:41 23:20 23:22 WBC (4.8-10.8) K/uL RBC (4.2-5.4) M/uL Hgb (12.0-16.0) g/dL Hct (37-47) % MCV (80-100) fL MCH (25-34) pg MCHC (32-36) g/dL RDW Std Deviation (36.4-46.3) fL RDW Coeff of Wojciech (11.5-14.5) % Plt Count (130-400) K/uL MPV (7.4-10.4) fL Immature Gran % (Auto) % Neut % (Auto) % Lymph % (Auto) % [place] % (Auto) % Eos % (Auto) % Baso % (Auto) % Immature Gran # (Auto) (0.00-0.02) K/uL Neut # (Auto) (1.4-6.5) K/uL Lymph # (Auto) (1.2-3.4) K/uL [place] # (Auto) (0.11-0.59) K/uL Eos # (Auto) (0-0.5) K/uL Baso # (Auto) (0-0.2) K/uL Sodium (136-145) mmol/L Potassium (3.5-5.1) mmol/L Chloride (98-107) mmol/L Carbon Dioxide (21-32) mmol/L Anion Gap (3-11) BUN (7-18) mg/dl Creatinine (0.6-1.2) mg/dl Est Cr Clr Drug Dosing ml/min Est GFR ( Amer) Est GFR (Non-Af Amer) BUN/Creatinine Ratio (10-20) Glucose (70-99) mg/dl Lactate 1.0 (0.4-2.0) mmol/L Calcium (8.5-10.1) mg/dl Phosphorus (2.5-4.9) mg/dl Magnesium (1.8-2.4) mg/dl Total Bilirubin (0.2-1) mg/dl AST (15-37) U/L ALT (12-78) U/L Alkaline Phosphatase (45-117) U/L Total Protein (6.4-8.2) gm/dl Albumin (3.4-5.0) gm/dl Globulin (2.5-4.0) gm/dl Albumin/Globulin Ratio (0.9-2) Procalcitonin < 0.05 (0-0.5) ng/ml TSH (0.300-4.500) uIu/ml HCG, Qual (Negative) Influenza Type A (PCR) Neg for Influ A (Neg) Influenza Type B (PCR) Neg for Influ B (Neg) Administered Medications Discontinued Medications Albuterol (Duoneb) 12 ml NEB ONE ONE Stop: 10/13/19 21:07 Last Admin: 10/13/19 22:01 Dose: 12 ml Documented by: [id number] Dexamethasone Sodium Phosphate (Decadron Pf) 10 mg IV NOW ONE Stop: 10/13/19 21:07 Last Admin: 10/13/19 21:33 Dose: 10 mg Documented by: [id number] Sodium Chloride (Nss 1000ml) 2,000 mls @ 999 mls/hr IV .Q2H1M ELIO Stop: 10/13/19 23:15 Last Infusion: 10/14/19 00:54 Dose: 0 mls/hr Documented by: [id number] Admin: 10/13/19 21:33 Dose: 999 mls/hr Documented by: [id number] Piperacillin Sod/Tazobactam Sod (Zosyn) 4.5 gm in 120 mls @ 240 mls/hr IV NOW ONE Stop: 10/13/19 23:22 Last Infusion: 10/14/19 00:54 Dose: 0 mls/hr Documented by: [id number] Admin: 10/13/19 23:10 Dose: 240 mls/hr Documented by: [id number] Vancomycin HCl 2,500 mg/ (Sodium Chloride) 550 mls @ 200 mls/hr IV NOW ONE Stop: 10/14/19 01:37 Last Admin: 10/13/19 23:56 Dose: 200 mls/hr Documented by: [id number] Ioversol (Optiray 320 100ml) 100 ml IV ONCE PRN PRN Reason: Interaction Checking Stop: 10/17/19 22:31 Last Admin: 10/13/19 22:32 Dose: 93 ml Documented by: [id number] Blood Pressure Blood Pressure Findings: Elevated blood pressure Blood Pressure Disposition: further management by hospitalist Discharge Plan Visit Data Chief Complaint: Shortness of Breath/Dyspnea Stated Complaint: COUGH SOB ED Provider: Eran Weaver Discharge Problem: Pleural effusion, Pneumonia, Asthma exacerbation, Shortness of breath Discharge Instructions Interventions: ED Discharge Assessment Last Done: 10/14/19 02:08 Discharge Problem: Pneumonia Qualifiers: Pneumonia type: due to unspecified organism Laterality: right Lung location: lower lobe of lung Qualified Code(s): J18.9 - Pneumonia, unspecified organism
[2019-10-14 02:24] LABS: Appearance Urine Clear (Clear); Bilirubin Urine Negative (Negative); Blood Urine Negative (Negative); Color Urine Yellow; Epithelial Cell Urine Auto >30 /lpf (0-5); Glucose Urine UA Negative (Negative); Ketones Urine Trace (Negative); Leukocyte Esterase Urine Negative (Negative); Nitrite Urine Negative (Negative); Protein Urine Trace (Negative); Specific Gravity Urine > 1.045 (1.000-1.030); Urobilinogen Urine Negative (Negative)
[2019-10-14 02:43] LABS: Mucus Urine Present (None Prsent); RBC Urine Automated 0-4 /hpf (0-4)
[2019-10-14 02:44] LABS: Bacteria Urine Automated 1+ (Negative); Cast Urine Automated 0 /lpf (0-5)
[2019-10-14] MEDS ORDERED: NITROGLYCERIN SL 0.4 MG/TAB TAB SL PRN (02:44)
[2019-10-14] MEDS ORDERED: ALBUTEROL HFA 8 GM INHALER INH PRN (02:44)
[2019-10-14] MEDS ORDERED: ONDANSETRON INJ 2 MG/ML 2 ML VIAL IV PRN (02:44)
[2019-10-14] MEDS ORDERED: DOCUSATE SODIUM 100 MG CAP PO PRN (02:44)
[2019-10-14] MEDS ORDERED: FUROSEMIDE 20 MG TAB PO PRN (02:44)
[2019-10-14] MEDS ORDERED: XOPENEX/ATROVENT 1.25mg/0.5MG NEB COMBO NEB SCH (02:44)
[2019-10-14] MEDS ORDERED: POLYETHYLENE (MIRALAX) 17 GM PACK PO PRN (02:44)
[2019-10-14] MEDS ORDERED: ACETAMINOPHEN 325 MG TAB PO PRN ×2 (02:44)
[2019-10-14] MEDS ORDERED: FLUTICASONE PROPIONATE NA SPR 16 GM BTL PRN (02:44)
[2019-10-14] MEDS: DOXYCYCLINE HYCLATE 100 MG in DEXTROSE 5% 100 ML IV SCH ×2 (04:17→16:51)
[2019-10-14] MEDS: PIPERACILLIN/TAZOBACTAM 4.5 GM in DEXTROSE 5% 100 ML IV SCH ×3 (06:11→21:44)
[2019-10-14] MEDS: LEVOTHYROXINE SODIUM 200 MCG TABLET PO SCH (06:11)
[2019-10-14] MEDS: INSULIN ASPART 100 UNITS/ML 3 ML PEN SC SCH ×3 (06:30→17:01)
--- NOTE | 2019-10-14 07:15 | History and Physical Report ---
DATE OF ADMISSION: 10/14/2019 CHIEF COMPLAINT: Cough and shortness of breath. HISTORY OF PRESENT ILLNESS: This is a 44-year-old female with past medical history significant for type 2 diabetes, polycystic ovaries, hyperlipidemia, hypothyroidism, chronic rhinitis, hypertension, hirsutism, intellectual disability, major depression who lives with her , presents with coughing. The patient states since 09/21/2019 she is having persistent cough, sometimes bringing whitish phlegm. Denies any fever, chills, and she is getting some shortness of breath. No chest pain. No nausea, no vomiting, no abdominal pain, no diarrhea. Appetite is okay, sleeping okay. No headache, no blurred vision, no earache, no runny nose, no sore throat, no dysphagia. Currently resting comfortably and saturating fine on 2 liters. Hemodynamically stable. The patient denies any travel history. Her also did not travel. She visited her mother who lives in [place] and she also did not travel, no sick contacts. ALLERGIES: LISINOPRIL, TWAN INHIBITORS, NSAIDS. PAST MEDICAL HISTORY: As mentioned above. PAST SURGICAL HISTORY: Pap screen. MEDICATIONS: The patient is on metformin 1000 mg p.o. b.i.d., valacyclovir 1000 mg p.o. daily, vitamin B12 1000 mcg daily, albuterol 2 puffs every 6 hours p.r.n., Trulicity 0.75 mg subcutaneous once per week, Lasix 20 mg p.o. every other day p.r.n., Claritin 10 mg p.o. daily, lovastatin 40 mg p.o. at bedtime, amlodipine 5 mg p.o. daily, Cymbalta 40 mg p.o. daily, levothyroxine 200 mcg p.o. daily, Flonase 2 sprays into each nostril daily, ferrous sulfate 325 mg p.o. b.i.d., calcium plus vitamin D 1 tablet daily, Colace 100 mg p.o. b.i.d. FAMILY HISTORY: No family history in file. SOCIAL HISTORY: , lives with her . Former smoker, quit in 2017, prior to that smoked 1 pack a day for 10 years. Alcohol only on holidays. No drug use. REVIEW OF SYMPTOMS: As per HPI. Rest of review of systems are negative. PHYSICAL EXAMINATION: GENERAL: The patient is obese, not in acute distress. VITAL SIGNS: Temperature 36.7, pulse 96, respiratory rate 24, blood pressure 154/91, oxygen 97% on 2 liters. HEENT: No pallor, no icterus. NECK: No neck masses. Supple. CARDIOVASCULAR: S1, S2 heard, regular rate and rhythm, no murmur, no gallop. RESPIRATORY SYSTEM: Normal AP diameter. No accessory muscle use. No wheezing, no crackles. ABDOMEN: Soft, bowel sounds present, nontender. No distention. CENTRAL NERVOUS SYSTEM: Cranial nerves II-XII grossly intact, nonfocal. EXTREMITIES: No edema, no erythema. LABORATORY DATA: WBC 10.7, hemoglobin 11.7, hematocrit 45.8, platelets 593. Sodium 137, potassium 3.7, chloride 108, bicarbonate 21, BUN 13, creatinine 0.7, serum glucose 178, lactate 1, calcium 8.6, phosphorus 2.9, magnesium 2, total bilirubin less than 0.1, AST 9, ALT 13, alkaline phosphatase 94. Procalcitonin less than 0.05. TSH 1.9. HCG negative. Urinalysis shows bacteriuria. COVID-19 pending Influenza A and B negative. IMAGING DATA: Chest x-ray shows extensive right hemithorax opacity, large right pleural effusion of uncertain etiology with significant right lung atelectasis or consolidation. IMAGING: Chest CT with IV contrast, large right pleural effusion which occupies approximately 80% on the right hemothorax, subtotal right lower lobe atelectasis and segmental right upper and right middle lobe atelectasis, consolidation could appear similar, but is considered less likely. The etiology for this pleural effusion is not clear by CT, probable hepatomegaly, small amount of perihepatic fluid in the left and lateral segment of the liver partially imaged on this exam. EKG: Sinus rhythm with short NV at a rate of 98, nonspecific T-wave abnormalities. ASSESSMENT AND PLAN: This is a 44-year-old female who presents with cough and shortness of breath going on since 09/21/2019. 1. Cough and shortness of breath. No travel history. No sick contacts, COVID test was done in the ER which we will continue and contact precautions and air borne precautions until tests are back. Most of her symptoms seem to come mostly from the large right pleural effusion on imaging studies. Etiology unclear at this time. We will keep n.p.o. after midnight and consult pulmonary for thoracocentesis and await pulmonary input. We will continue nebs around the clock and closely monitor. 2. History of diabetes. Hold home medications. Placed on Lantus and sliding scale. Follow the blood sugars. 3. History of hypothyroidism. Continue Synthroid. 4. History of depression. Continue duloxetine . 5. history of mild intellectual disability as per [facility]. The patient was somewhat reluctant to get admitted. 6. Hypertension, on amlodipine. We will monitor the blood pressure. 7. Deep venous thrombosis prophylaxis, sequential compression devices for now. 8. Disposition: Closely monitor on the tele floor. Level 1 full code. MTDD
[2019-10-14] MEDS: LEVALBUTEROL 1.25MG/0.5ML NEB INH SCH ×3 (07:17→20:02)
[2019-10-14] MEDS: IPRATROPIUM BROMIDE NEB SOLN 0.02% 2.5 ML VIAL INH SCH ×3 (07:17→20:02)
--- NOTE | 2019-10-14 07:57 | Hospitalist Progress Note ---
Date of Service October 14, 2019 Assessment & Plan Admission and Anticipated Discharge Date Admission Date: October 14, 2019 Subjective Hx of obesity and sleep apnea: on cpap q hs Results & Data Results & Data ([facility]) Vital Signs (Past 12 Hours) Vital Signs Temp Pulse Pulse Resp BP BP Pulse Ox 10/14/19 07:20 94 H 24 93 10/14/19 03:00 96 H 10/14/19 02:58 36.7 C 97 H 24 154/91 H 97 10/14/19 02:08 101 H 18 160/89 H 92 10/14/19 01:00 101 H 18 92 10/13/19 23:10 101 H 18 167/91 H 96 10/13/19 22:44 100 H 32 H 160/93 H 96 10/13/19 22:20 107 H 29 H 96 10/13/19 22:10 97 H 33 H 96 10/13/19 22:01 99 H 22 94 10/13/19 22:00 100 H 31 H 158/112 H 98 10/13/19 21:50 98 H 31 H 94 10/13/19 21:46 95 10/13/19 21:41 101 H 28 H 94 10/13/19 21:39 101 H 31 H 151/100 H 94 10/13/19 21:37 100 H 29 H 94 10/13/19 20:28 36.9 C 99 H 28 H 175/109 H 95
[2019-10-14] MEDS: CALCIUM 600MG + VIT D 400 IU TAB PO SCH (08:42)
[2019-10-14] MEDS: FERROUS SULFATE 325 MG TAB PO SCH ×2 (08:42→16:51)
[2019-10-14] MEDS: CYANOCOBALAMIN 500 MCG TABLET (VITAMIN B-12) PO SCH (08:43)
[2019-10-14] MEDS: DULOXETINE HCL 20 MG CAP PO SCH (08:43)
[2019-10-14] MEDS: AMLODIPINE BESYLATE 5 MG TAB PO SCH (08:43)
[2019-10-14] MEDS: LORATADINE 10 MG TAB PO SCH (08:43)
[2019-10-14] MEDS: VALACYCLOVIR HCL 500 MG TABLET PO SCH (08:43)
[2019-10-14] MEDS: INSULIN GLARGINE SOLOSTAR 100 UNITS/ML 3 ML PEN SC SCH ×2 (08:59→22:25)
[2019-10-14 09:33] LABS: INR 1.1 (0.9-1.1); Partial Thromboplastin Time 27.4 Seconds (21.0-31.0); Prothrombin Time 11.9 Seconds (9.0-12.0)
--- NOTE | 2019-10-14 11:10 | Hospitalist Progress Note ---
Date of Service October 14, 2019 Assessment & Plan (1) Pleural effusion: Patient is a 44 yr female who presents with persistent productive cough associated with SOB since 3 weeks duration. No known history of travel or sick contact as per patient. Right Pleural Effusion --CT Chest: Large right pleural effusion which occupies approximately 80% of the right hemithorax. Subtotal right lower lobe atelectasis and segmental right upper and right middle lobe atelectasis. Consolidation could appear similar but is considered less likely. The etiology for this pleural effusion is not clear by CT. Although within the differential, no CT evidence for malignancy. The findings could be correlated with thoracentesis results. Probable hepatomegaly with a small amount of perihepatic fluid. Enlargement of the lateral segment of the liver, partially imaged on this exam. --No leukocytosis, afebrile --No known history of travel, sick contact --Procalcitonin: <0.05 --Lactate: 1.0 --SARS CoV-2: Pending --Influenza PCR: Negative --Blood Cultures:pending --Continue Airborne/Contact precautions for now --Needs thoracentesis --Pulmonology consulted --Continue IV antibiotics for possible Pneumonia -- Continue Nebs, supplemental oxygen as needed --Consider ECHO if pleural fluid transudative Abnormal UA: ? contaminated sample Urine Culture:pending Continue empiric Antibiotics for now Diabetes Mellitus Last HbA1C:7.3 Hold PO meds Continue Insulin therapy per Protocol Monitor BGs Hypothyroidism TSH: wnl Continue Levothyroxine Depression Continue duloxetine H/O mild intellectual disability As per records Hypertension BP slightly elevated Continue Amlodipine monitor DVT Px: Lovenox SQ/SCDs Code Status Full Code Admission and Anticipated Discharge Date Admission Date: October 14, 2019 Subjective Patient is seen and examined at bedside History not completely reliable due to Intellectual disability States having productive cough Denies any chest pain, SOB, dizziness, nausea, abd pain Saturating low 90s with 2 liters of supplemental Oxygen Afebrile On Airborne Precautions Review of Systems Review of Systems: All systems reviewed & are unremarkable except as noted in HPI & below Physical Exam Physical Exam: Physical Exam: Vitals signs as noted above General Appearance:Obese, no apparent distress Head: normocephalic, Atraumatic Eyes: normal inspection, EOMI, PERRL Neck: supple, Trachea midline Respiratory/Chest: Decreased breath sounds on right , CTA Cardiovascular: S1, S2, No murmur Abdomen/GI:Soft, Non tender, Bowel sounds present Extremities/Musculoskelatal:normal inspection, no edema Neurologic/Psych:AAOX3, grossly no focal neurological deficits Skin: normal color, warm Results & Data Results & Data ([facility]) Vital Signs (Past 12 Hours) Vital Signs Temp Pulse Pulse Resp BP BP Pulse Ox 10/14/19 09:44 92 H 10/14/19 07:58 36.6 C 94 H 19 165/92 H 92 10/14/19 07:20 94 H 24 93 10/14/19 03:00 96 H 10/14/19 02:58 36.7 C 97 H 24 154/91 H 97 10/14/19 02:08 101 H 18 160/89 H 92 10/14/19 01:00 101 H 18 92 10/13/19 23:10 101 H 18 167/91 H 96 Laboratory Results Short CBC 10/13/19 Range/Units 21:35 WBC 10.72 (4.8-10.8) K/uL Hgb 11.7 L (12.0-16.0) g/dL Hct 35.8 L (37-47) % Plt Count 593 H (130-400) K/uL BMP 10/13/19 21:35 Sodium 137 Potassium 3.7 Chloride 108 H Carbon Dioxide 21 BUN 13 Creatinine 0.76 Glucose 178 H Calcium 8.6 Liver Function 10/13/19 Range/Units 21:35 Total Bilirubin < 0.1 L (0.2-1) mg/dl AST 9 L (15-37) U/L ALT 13 (12-78) U/L Alkaline Phosphatase 94 (45-117) U/L Albumin 3.0 L (3.4-5.0) gm/dl Urine 10/14/19 Range/Units 02:12 Urine Color Yellow Urine Appearance Clear (Clear) Urine pH 5.0 (4.5-7.5) Ur Specific [place] > 1.045 H (1.000-1.030) Urine Protein Trace H (Negative) Urine Glucose (UA) Negative (Negative)
--- NOTE | 2019-10-14 16:48 | Procedure Note ---
Procedure Note Date of Service October 14, 2019 Procedure: Diagnostic therapeutic ultrasound-guided catheter thoracentesis Nightclub Manager: Dr. Ciro Sinclair Indication: Pleural effusion Consent: Signed by patient and verified with timeout prior to procedure Anesthesia: 1% lidocaine without epinephrine local. Procedure: Consent was verified and timeout performed. Appropriate imaging studies were reviewed prior to the procedure. Patient was placed in a seated position and limited thoracic ultrasound was performed of the right chest. See separate imaging. Appropriate site above the diaphragm for thoracentesis was selected. The skin was prepped and draped in normal sterile fashion. Lidocaine was used for local analgesia. Fluid was aspirated via the finder needle. A small skin izabel was made with the scalpel and the catheter over the needle apparatus was advanced over the rib into the pleural space. Using the syringe one-way valve system, a total of 1650 mL's of green-tinged serous fluid was removed. The catheter was removed and observed to be intact. A sterile dressing was applied. Post procedure chest x-ray was ordered. Postprocedure ultrasound showed good lung sliding. There was still some pleural fluid appreciated. Fluid was sent for labs, culture and cytology. The patient tolerated the procedure without obvious complication Complications: None Blood loss: Less than 2 cc Impression: Looks like Bilo-thorax. Follow-up serum bilirubin as well as bilirubin and the pleural fluid. Coding CPT Codes Pulmonary/Thoracic - Pulmonary and Thoracic: 64743 Thoracentesis w imaging ([id number]) [facility] [place] Procedure Codes (Charges) Pulmonary/Thoracic Procedure 1: Pulmonary and Thoracic: 40152 Thoracentesis w imaging
[2019-10-14 17:17] LABS: Glucose Pleural Fluid 145 mg/dl
--- NOTE | 2019-10-14 17:22 | XRay Report ---
SINGLE VIEW CHEST CLINICAL HISTORY: Status post thoracentesis. FINDINGS: An AP, portable, upright chest radiograph is compared to chest x-ray and chest CT dated 10/12. The examination is degraded by portable technique and patient rotation. The cardiomediastinal silhouette is unremarkable. There is a moderate right pleural effusion with associated atelectasis. The left lung appears clear. No pneumothorax is seen. The bony thorax is grossly intact. Calcific ten dinopathy is noted in the right shoulder. IMPRESSION: 1. There is a moderate right pleural effusion with associated atelectasis. This has decreased in size from yesterday. 2. No pneumothorax is identified post procedure. ACT 112: Negative or not required by law. Electronically signed by: Marco Garcia M.D. 10/14/2019 5:20 PM
[2019-10-14 17:27] LABS: Amylase Pleural Fluid 15 U/L; LDH Pleural Fluid 127 U/L; Total Protein Pleural Fluid 5.1 g/dl
--- NOTE | 2019-10-14 17:53 | Pulmonary Consultation ---
Date of Consultation October 14, 2019 Assessment & Plan (1) Pleural effusion: --Large right-sided pleural effusion With compression atelectasis of the right middle and right lower lobe. Status post thoracentesis for 02/25/2020 with removal of 1650 mL greenish tinged fluid. Greenish tinge makes me think this could be Bilo-thorax Follow-up bilirubin in the fluid. Procalcitonin negative. Pleural fluid: Protein: 5.1, LDH: 127, glucose: 145, pH: 7.36 Serum: Protein: 7.5, LDH: 129, Bilirubin: 0.3 Exudative as per lights criteria. Follow-up cytology. Follow-up chest x-ray still shows pleural effusion. Patient might need repeat thoracentesis if she is complaining of shortness of breath but will wait for the cytology to come back to decide what should be the next best step. --Questionable history of asthma Patient is also [id number] smoker Patient will benefit from pulmonary function test as an outpatient. --GENET Patient has CPAP machine at home, she is not compliant with it. Advised the patient to be compliant with meds CPAP machine. Please note the above document was generated using voice recognition software. It may contain grammatical, syntax or spelling errors. (2) Shortness of breath: (3) Tobacco use disorder: History of Present Illness Attending Physician: Bakari Quarles MD History of Present Illness 44-year-old female with past medical history of type 2 diabetes, polycystic ovarian disease, questionable asthma, dyslipidemia, hypo-thyroidism, hirsutism comes to the hospital with complaints of cough and shortness of breath which is been going on since middle of the September. Patient denies any fever or chills. No hemoptysis. No runny nose, no tearing from the eyes. No ageusia, no anosmia. Patient denies any headache, no chest pain. Positive shortness of breath which is been going on for a while actually. Patient denies any travel history. She lives in [place] she visits her mother which stays less than 15 minutes away from her. Denies any sick contacts. Patient stays with her who does not have any symptoms. No weight loss, no night sweats. Pulmonary was consulted because CT chest was done which showed large right-sided pleural effusion. Patient did not have any history of pleural effusion in the past. Social history: [id number] smoking history quit approximately 10 months ago, no illicit drug use, no alcohol use. Does not work. Stays home. Has 8 cats at home which is not allergic to. Has seasonal allergies. Family history: Breast cancer in the family. Denies any history of lung cancer. Allergies Allergy/AdvReac Type Severity Reaction Status Date / Time lisinopril Allergy Severe swelling Verified 10/13/19 22:30 of face, lips, tongue TWAN Inhibitors AdvReac Severe angioedema Verified 07/29/19 14:14 NSAIDS (Non-Steroidal AdvReac Severe angioedema Verified 07/29/19 14:14 Anti-Inflamma Home Medications Home Medications Medication Instructions Recorded Confirmed Type docusate sodium [Stool Softener] 100 mg PO BID PRN 08/17/18 10/13/19 History fluticasone propionate [Flonase 2 spray INTRANASAL QAM PRN 08/17/18 10/13/19 History Allergy Relief] furosemide [Lasix] 20 mg PO DAILY PRN 08/17/18 10/13/19 History metformin [Glucophage] 1,000 mg PO BID 08/17/18 10/13/19 History blood sugar diagnostic #10 ea 03/06/19 07/29/19 History loratadine 10 mg tablet 10 mg PO QAM #30 tab 03/06/19 10/13/19 History acetaminophen [Tylenol] 325 mg PO Q6H PRN 04/26/19 10/13/19 History amlodipine [Norvasc] 5 mg PO DAILY #30 tab 04/27/19 10/13/19 Rx duloxetine 40 mg PO DAILY 04/27/19 10/13/19 History levothyroxine 200 mcg PO DAILY 04/27/19 10/13/19 History semaglutide 0.25 mg SUBCUT WK 04/27/19 10/13/19 History valacyclovir 1,000 mg PO DAILY 04/27/19 10/13/19 History albuterol sulfate 90 mcg/actuation 2 puff INHALATION QID PRN #18 gm 07/09/19 10/13/19 Rx aerosol inhaler calcium carbonate-vitamin D3 1 tab PO DAILY 10/13/19 10/13/19 History [Caltrate 600 plus D] cyanocobalamin (vitamin B-12) 1,000 mcg PO DAILY 10/13/19 10/13/19 History [Vitamin B-12] dulaglutide [Trulicity] 0.75 mg SUBCUT WK 10/13/19 10/13/19 History ferrous sulfate 325 mg PO BID 10/13/19 10/13/19 History Patient History Medical History Asthma (Chronic) Chronic bilateral low back pain without sciatica (Chronic) Degenerative joint disease of cervical spine (Chronic) Diabetes mellitus type 2, controlled (Chronic) Diabetes mellitus, type II (Chronic) Herpes simplex (Chronic) Hirsutism (Chronic) History of abnormal uterine bleeding History of endometrial hyperplasia Hyperlipidemia (Chronic) Hypertension (Chronic) Hypothyroidism (Chronic) Intellectual disability (Chronic) Morbid obesity (Chronic) Polycystic ovarian syndrome (Chronic) Severe obstructive sleep apnea (Chronic) Type 2 diabetes mellitus (Chronic) Surgical History H/O oral surgery History of endometrial biopsy S/P D&C (status post dilation and curettage) S/P tonsillectomy Family History Aunt Breast cancer maternal aunt Family/Other Diabetes Other Family history non-contributory Denies family history of Ovarian cancer Colorectal cancer Social History Preferred Language: Slovak Communication Ability: Effective Violin Repairer Required: No Beliefs That Will Affect Care: None marital status: Current Living Situation: Spouse Other Information That Helps Us Care for You: No Feels Safe at Home: Yes Safety Concerns: Feels Safe At This Time Smoking Status: Unknown if ever smoked Hx Alcohol Use: No Hx Substance Use: No Review of Systems Review of Systems: All systems reviewed & are unremarkable except as noted in HPI & below Physical Exam Physical Exam: Constitutional: No acute distress HEENT: EOMI, PERRLA Respiratory system: Decreased air entry on the right side, no wheeze, no rhonchi, no crackles CVS: S1-S2 positive, no murmurs or gallops Abdomen: Soft, nontender, nondistended, positive bowel sounds x4, obese Extremities: +2 pulses bilaterally radialis/ dorsalis pedis, no cyanosis, no edema Neuro: Awake alert oriented x3 Psych: Normal mood and affect G/U: No Monson Skin: no rashes, warm and dry Lymphatic: no cervical or axillary lymphadenopathy Results & Data Results & Data ([facility]) Vital Signs (Past 12 Hours) Vital Signs Temp Pulse Pulse Resp BP Pulse Ox 10/14/19 16:57 36.6 C 95 H 20 174/99 H 93 10/14/19 16:03 92 H 10/14/19 13:24 92 H 20 91 10/14/19 11:51 37.4 C 90 19 175/91 H 94 10/14/19 09:44 92 H 10/14/19 07:58 36.6 C 94 H 19 165/92 H 92 10/14/19 07:20 94 H 24 93 10/13/19 21:35 10/13/19 21:35 PG Care Time/CCT Total # of Minutes Spent Total Time Spent with Patient: Total time spent is greater than 50% in coordination of care (as documented) at patient's floor/unit and/or counseling patient: Coding Level of Care Code 97529 Inpt Consult Level 5 Diagnoses Pleural effusion J90 Shortness of breath R06.02 Tobacco use disorder F17.200
[2019-10-14 18:07] LABS: Albumin Level 3.1 gm/dl (3.4-5.0); Bilirubin,Total 0.3 mg/dl (0.2-1); Total Protein 7.5 gm/dl (6.4-8.2)
[2019-10-14 18:40] LABS: Appearance Pleural Fluid CLEAR; Basophils, Fluid 0 %; Color Pleural Fluid YELLOW; Eosinophils, Fluid 0 %; Lymphocytes, Fluid 19 %; Mono,Macrophage,Mesothelial 79 %; Neutrophils, Fluid 2 %; RBC Pleural Fluid (A) 3000 /uL; Source Pleural Fluid RIGHT LUNG; WBC Pleural Fluid (A) 1538 /uL
[2019-10-14 19:06] LABS: C Reactive Protein 2.48 mg/dl (0-0.29)
[2019-10-15] MEDS: INSULIN ASPART 100 UNITS/ML 3 ML PEN SC SCH ×5 (00:36→21:00)
[2019-10-15] MEDS: IPRATROPIUM BROMIDE NEB SOLN 0.02% 2.5 ML VIAL INH SCH ×2 (01:11→07:28)
[2019-10-15] MEDS: LEVALBUTEROL 1.25MG/0.5ML NEB INH SCH ×2 (01:13→07:28)
[2019-10-15] MEDS: DOXYCYCLINE HYCLATE 100 MG in DEXTROSE 5% 100 ML IV SCH ×2 (02:57→16:34)
[2019-10-15] MEDS: PIPERACILLIN/TAZOBACTAM 4.5 GM in DEXTROSE 5% 100 ML IV SCH ×2 (05:44→12:17)
[2019-10-15] MEDS: LEVOTHYROXINE SODIUM 200 MCG TABLET PO SCH (05:45)
[2019-10-15 07:35] LABS: Hematocrit (blood only) 34.7 % (37-47); Hemoglobin 11.2 g/dL (12.0-16.0); Mean Corpuscular Hgb Conc 32.3 g/dL (32-36); Mean Corpuscular Volume 80.5 fL (80-100); Mean Platelet Volume 8.8 fL (7.4-10.4); Platelet Count 536 K/uL (130-400); RDW Standard Deviation 47.1 fL (36.4-46.3); Red Blood Count 4.31 M/uL (4.2-5.4); White Blood Count 9.28 K/uL (4.8-10.8)
[2019-10-15] MEDS: LORATADINE 10 MG TAB PO SCH (08:00)
[2019-10-15] MEDS: DULOXETINE HCL 20 MG CAP PO SCH (08:01)
[2019-10-15] MEDS: AMLODIPINE BESYLATE 5 MG TAB PO SCH (08:01)
[2019-10-15] MEDS: CALCIUM 600MG + VIT D 400 IU TAB PO SCH (08:01)
[2019-10-15] MEDS: FERROUS SULFATE 325 MG TAB PO SCH ×2 (08:01→16:33)
[2019-10-15] MEDS: CYANOCOBALAMIN 500 MCG TABLET (VITAMIN B-12) PO SCH (08:01)
[2019-10-15] MEDS: VALACYCLOVIR HCL 500 MG TABLET PO SCH (08:01)
[2019-10-15 08:04] LABS: Calcium 8.4 mg/dl (8.5-10.1); Creatinine Clr Calc Pharmacy 149.4 ml/min; Est GFR (African American) 125.7; Est GFR (Non-African American) 108.4; Potassium 3.6 mmol/L (3.5-5.1)
[2019-10-15] MEDS: INSULIN GLARGINE SOLOSTAR 100 UNITS/ML 3 ML PEN SC SCH ×2 (08:10→21:00)
[2019-10-15] MEDS ORDERED: ENOXAPARIN INJ 40 MG/0.4 ML SYR SQ SCH (09:00)
--- NOTE | 2019-10-15 10:22 | Electrocardiogram Report ---
Test Reason : Blood Pressure : / mmHG Vent. Rate : 098 BPM Atrial Rate : 098 BPM P-R Int : 088 ms QRS Dur : 088 ms QT Int : 354 ms P-R-T Axes : 000 067 074 degrees QTc Int : 451 ms Poor data quality, interpretation may be adversely affected Sinus rhythm with short NH Nonspecific T wave abnormality Abnormal ECG When compared with ECG of 26-APR-2019 13:54, T wave inversion now evident in Anterior leads Confirmed by Manjit Barba ([id number]) on 10/15/2019 10:22:25 AM Referred By: REFERRED SELF Confirmed By:Manjit Barba
[2019-10-15 11:00] LABS: COVID-19 Patient Symptomatic? YES; PAN-SARS Coronavirus RNA NEGATIVE (NEGATIVE); SARS CoV2 RNA (COVID-19) NEGATIVE (NEGATIVE); SARS Coronavirus RNA Source NASOPHARYNGEAL
[2019-10-15] MEDS ORDERED: IPRATROPIUM BROMIDE NEB SOLN 0.02% 2.5 ML VIAL INH PRN (11:23)
[2019-10-15] MEDS ORDERED: LEVALBUTEROL 1.25MG/0.5ML NEB INH PRN (11:23)
--- NOTE | 2019-10-15 13:01 | Pulmonology Progress Note ---
Date of Service October 15, 2019 Assessment & Plan (1) Pleural effusion: --Large right-sided pleural effusion With compression atelectasis of the right middle and right lower lobe. Status post thoracentesis for 02/25/2020 with removal of 1650 mL greenish tinged fluid. Greenish tinge makes me think this could be Bilo-thorax. Follow-up bilirubin in the fluid. Procalcitonin negative. Pleural fluid: Protein: 5.1, LDH: 127, glucose: 145, pH: 7.36 Serum: Protein: 7.5, LDH: 129, Bilirubin: 0.3 Pleural fluid showed 19% lymphocytes and 79% meso and mono Exudative as per lights criteria. Etiology not clear yet. Follow-up cytology. Patient might need repeat thoracentesis if she is complaining of shortness of breath but will wait for the cytology to come back to decide what should be the next best step. --Questionable history of asthma Patient is also [id number] smoker Patient will benefit from pulmonary function test as an outpatient. --GENET Patient has CPAP machine at home, she is not compliant with it. Advised the patient to be compliant with meds CPAP machine. We will follow the patient peripherally until we have the cytology and culture results back. Please note the above document was generated using voice recognition software. It may contain grammatical, syntax or spelling errors. (2) Shortness of breath: (3) Tobacco use disorder: Admission and Anticipated Discharge Date Admission Date: October 14, 2019 Subjective Patient seen and examined at bedside. No acute distress, no adverse events overnight. Complains of some coughing. Denies any chest pain, shortness of breath is improved from before. No chest pain, no headache, no nausea, no vomiting. Asking for food. Review of Systems Review of Systems: All systems reviewed & are unremarkable except as noted in HPI & below Physical Exam Physical Exam: Constitutional: No acute distress HEENT: EOMI, PERRLA Respiratory system: Decreased air entry on the right side, no wheeze, no rhonchi, no crackles CVS: S1-S2 positive, no murmurs or gallops Abdomen: Soft, nontender, nondistended, positive bowel sounds x4, obese Extremities: +2 pulses bilaterally radialis/ dorsalis pedis, no cyanosis, no edema Neuro: Awake alert oriented x3 Psych: Normal mood and affect G/U: No Monson Skin: no rashes, warm and dry Lymphatic: no cervical or axillary lymphadenopathy Results & Data Results & Data ([facility]) Vital Signs (Past 12 Hours) Vital Signs Temp Pulse Pulse Resp BP BP Pulse Ox 10/15/19 11:00 36.6 C 93 H 22 170/97 H 93 10/15/19 09:00 84 10/15/19 07:30 88 20 92 10/15/19 02:56 36.5 C 85 20 151/92 H 93 10/15/19 02:23 91 H 10/15/19 01:13 87 22 93 10/15/19 07:17 10/15/19 07:17 PG Care Time/CCT Total # of Minutes Spent Total Time Spent with Patient: Total time spent is greater than 50% in coordination of care (as documented) at patient's floor/unit and/or counseling patient: Coding Level of Care Code 90255 Subseq Hosp Care Lvl 2 Diagnoses Pleural effusion J90 Shortness of breath R06.02 Tobacco use disorder F17.200
[2019-10-15] MEDS ORDERED: AMLODIPINE BESYLATE 5 MG TAB PO ONE (14:19)
--- NOTE | 2019-10-15 14:47 | Hospitalist Progress Note ---
Date of Service October 15, 2019 Assessment & Plan (1) Pleural effusion: Patient is a 44 yr female who presents with persistent productive cough associated with SOB since 3 weeks duration. No known history of travel or sick contact as per patient. Exudative Right Pleural Effusion --CT Chest: Large right pleural effusion which occupies approximately 80% of the right hemithorax. Subtotal right lower lobe atelectasis and segmental right upper and right middle lobe atelectasis. Consolidation could appear similar but is considered less likely. The etiology for this pleural effusion is not clear by CT. Although within the differential, no CT evidence for malignancy. The findings could be correlated with thoracentesis results. Probable hepatomegaly with a small amount of perihepatic fluid. Enlargement of the lateral segment of the liver, partially imaged on this exam. --H/O Smoking --R/O malignancy --S/P thoracentesis--1650 mL greenish tinged fluid was removed --May eventually need repeat thoracentesis --No leukocytosis, afebrile --No known history of travel, sick contact --Procalcitonin: <0.05 --Lactate: 1.0 --SARS CoV-2: Negative --Influenza PCR: Negative --Blood Cultures:No growth to date --Appreciate Pulmonology Input --Continue IV antibiotics for now --Nebs, supplemental oxygen as needed --Follow Pleural fluid Cytology Abnormal UA:UTI ruled out contaminated sample Urine Culture: Mixed probable skin charisse Diabetes Mellitus Last HbA1C:7.3 Hold PO meds Continue Insulin therapy per Protocol Monitor BGs Hypothyroidism TSH: wnl Continue Levothyroxine Depression Continue duloxetine H/O mild intellectual disability As per records Hypertension BP slightly elevated Increase Amlodipine to 10mg daily monitor DVT Px: Lovenox SQ Code Status Full Code Admission and Anticipated Discharge Date Admission Date: October 14, 2019 Subjective Patient is seen and examined at bedside Less cough No new complaints Denies any chest pain, SOB, dizziness, nausea, abd pain Discussed with Pulmonology today Review of Systems Review of Systems: All systems reviewed & are unremarkable except as noted in HPI & below Physical Exam Physical Exam: Physical Exam: Vitals signs as noted above General Appearance:Obese, no apparent distress Head: normocephalic, Atraumatic Eyes: normal inspection, EOMI, PERRL Neck: supple, Trachea midline Respiratory/Chest: Decreased breath sounds on right , CTA Cardiovascular: S1, S2, No murmur Abdomen/GI:Soft, Non tender, Bowel sounds present Extremities/Musculoskelatal:normal inspection, no edema Neurologic/Psych:AAOX3, grossly no focal neurological deficits Skin: normal color, warm Results & Data Results & Data ([facility]) Vital Signs (Past 12 Hours) Vital Signs Temp Pulse Pulse Resp BP BP Pulse Ox 10/15/19 11:00 36.6 C 93 H 22 170/97 H 93 10/15/19 09:00 84 10/15/19 07:30 88 20 92 10/15/19 02:56 36.5 C 85 20 151/92 H 93 Laboratory Results Short CBC 10/15/19 Range/Units 07:17 WBC 9.28 (4.8-10.8) K/uL Hgb 11.2 L (12.0-16.0) g/dL Hct 34.7 L (37-47) % Plt Count 536 H (130-400) K/uL BMP 10/15/19 07:17 Sodium 137 Potassium 3.6 Chloride 109 H Carbon Dioxide 23 BUN 9 Creatinine 0.67 Glucose 135 H Calcium 8.4 L Liver Function 10/14/19 Range/Units 17:05 Total Bilirubin 0.3 (0.2-1) mg/dl Albumin 3.1 L (3.4-5.0) gm/dl
[2019-10-15] MEDS ORDERED: Nursing to Pharmacy Communication ONE (16:42)
[2019-10-15] MEDS ORDERED: CARBOHYDRATES FOR HYPOGLYCEMIA PO PRN (22:30)
[2019-10-15] MEDS ORDERED: DEXTROSE 50% 50 ML SYRINGE IV PRN (22:30)
[2019-10-15] MEDS ORDERED: GLUCAGON FOR INJ 1 MG VIAL IM PRN (22:30)
[2019-10-15] MEDS ORDERED: GLUCOSE 40% GEL 15 GM TUBE PO PRN (22:30)
[2019-10-15] MEDS ORDERED: GLUCOSE 10 TABS/TUBE PO PRN (22:30)
[2019-10-16] MEDS: DOXYCYCLINE HYCLATE 100 MG in DEXTROSE 5% 100 ML IV SCH (03:22)
[2019-10-16] MEDS: LEVOTHYROXINE SODIUM 200 MCG TABLET PO SCH (05:21)
[2019-10-16 05:44] LABS: Hematocrit (blood only) 37.7 % (37-47); Hemoglobin 12.4 g/dL (12.0-16.0); Mean Corpuscular Hemoglobin 26.6 pg (25-34); Mean Corpuscular Hgb Conc 32.9 g/dL (32-36); Mean Corpuscular Volume 80.9 fL (80-100); Mean Platelet Volume 8.9 fL (7.4-10.4); Platelet Count 593 K/uL (130-400); RDW Standard Deviation 47.1 fL (36.4-46.3); Red Blood Count 4.66 M/uL (4.2-5.4); White Blood Count 10.22 K/uL (4.8-10.8)
[2019-10-16 06:20] LABS: BUN Creatinine Ratio 11.9 (10-20); Calcium 8.4 mg/dl (8.5-10.1); Creatinine Clr Calc Pharmacy 137.2 ml/min; Est GFR (African American) 117.7; Est GFR (Non-African American) 101.6; Potassium 4.1 mmol/L (3.5-5.1)
--- NOTE | 2019-10-16 07:41 | Pulmonology Progress Note ---
Date of Service October 16, 2019 Assessment & Plan (1) Pleural effusion: --Large right-sided pleural effusion With compression atelectasis of the right middle and right lower lobe. Status post thoracentesis for 02/25/2020 with removal of 1650 mL greenish tinged fluid. Greenish tinge makes me think this could be Bilo-thorax. Follow-up bilirubin and urea in the fluid. Procalcitonin negative. Pleural fluid: Protein: 5.1, LDH: 127, glucose: 145, pH: 7.36 Serum: Protein: 7.5, LDH: 129, Bilirubin: 0.3 Pleural fluid showed 19% lymphocytes and 79% meso and mono Exudative as per lights criteria. Etiology not clear yet. Follow-up cytology. Malignancy in the differential. --Questionable history of asthma Patient is also 20-mjjw-vyek smoker Patient will benefit from pulmonary function test as an outpatient. --GENET Patient has CPAP machine at home, she is not compliant with it. Advised the patient to be compliant with meds CPAP machine. Plan: Preliminary cytology report states could be malignancy. We will do repeat thoracentesis today. Please note the above document was generated using voice recognition software. It may contain grammatical, syntax or spelling errors. (2) Shortness of breath: (3) Tobacco use disorder: Admission and Anticipated Discharge Date Admission Date: October 14, 2019 Subjective Patient seen and examined at bedside. No acute distress, no adverse events overnight. Patient states that shortness of breath is improved. Coughing somewhat here and there. Denies any chest pain, no headache, no nausea, no vomiting. Good appetite. Review of Systems Review of Systems: All systems reviewed & are unremarkable except as noted in HPI & below Physical Exam Physical Exam: Constitutional: No acute distress HEENT: EOMI, PERRLA Respiratory system: Decreased air entry on the right side, no wheeze, no rhonchi, no crackles CVS: S1-S2 positive, no murmurs or gallops Abdomen: Soft, nontender, nondistended, positive bowel sounds x4, obese Extremities: +2 pulses bilaterally radialis/ dorsalis pedis, no cyanosis, no edema Neuro: Awake alert oriented x3 Psych: Normal mood and affect G/U: No Monson Skin: no rashes, warm and dry Lymphatic: no cervical or axillary lymphadenopathy Results & Data Results & Data ([facility]) Vital Signs (Past 12 Hours) Vital Signs Temp Pulse Resp BP Pulse Ox 10/16/19 07:17 36.4 C L 92 H 18 159/95 H 93 10/15/19 23:30 36.6 C 87 17 152/97 H 95 10/16/19 05:16 10/16/19 05:16 PG Care Time/CCT Total # of Minutes Spent Total Time Spent with Patient: Total time spent is greater than 50% in coordination of care (as documented) at patient's floor/unit and/or counseling patient: Coding Level of Care Code 30608 Subseq Hosp Care Lvl 2 Diagnoses Pleural effusion J90 Shortness of breath R06.02 Tobacco use disorder F17.200
[2019-10-16] MEDS: CYANOCOBALAMIN 500 MCG TABLET (VITAMIN B-12) PO SCH (08:06)
[2019-10-16] MEDS: VALACYCLOVIR HCL 500 MG TABLET PO SCH (08:06)
[2019-10-16] MEDS: LORATADINE 10 MG TAB PO SCH (08:07)
[2019-10-16] MEDS: CALCIUM 600MG + VIT D 400 IU TAB PO SCH (08:07)
[2019-10-16] MEDS: FERROUS SULFATE 325 MG TAB PO SCH ×2 (08:07→16:20)
[2019-10-16] MEDS: DULOXETINE HCL 20 MG CAP PO SCH (08:07)
[2019-10-16] MEDS: AMLODIPINE BESYLATE 5 MG TAB PO SCH (08:07)
[2019-10-16] MEDS: INSULIN GLARGINE SOLOSTAR 100 UNITS/ML 3 ML PEN SC SCH ×2 (08:07→21:20)
[2019-10-16] MEDS: INSULIN ASPART 100 UNITS/ML 3 ML PEN SC SCH ×4 (08:08→21:19)
--- NOTE | 2019-10-16 15:07 | Procedure Note ---
Procedure Note Date of Service October 16, 2019 Procedure: Diagnostic therapeutic ultrasound-guided catheter thoracentesis Redevelopment Manager: Dr. Ciro Sinclair MD Indication: Pleural effusion Consent: Signed by patient and verified with timeout prior to procedure Anesthesia: 1% lidocaine without epinephrine local. Procedure: Consent was verified and time-out performed. Appropriate imaging studies were reviewed prior to the procedure. Patient was placed in a seated position and limited thoracic ultrasound was performed of the right chest. See separate imaging. Appropriate site above the diaphragm for thoracentesis was selected. The skin was prepped and draped in normal sterile fashion. Lidocaine was used for local analgesia. Fluid was aspirated via the finder needle. A small skin izabel was made with the scalpel and the catheter over the needle apparatus was advanced over the rib into the pleural space. Using the syringe one-way valve system, a total of 2500 mL's of serous with greenish tinge fluid was removed. The catheter was removed and observed to be intact. A sterile dressing was applied. Post procedure chest x-ray was ordered. Good lung sliding was appreciated postprocedure. Fluid was sent for cytology. The patient tolerated the procedure without obvious complication Bedside ultrasound of the abdomen was also done which showed ascites fluid appreciated more on the right inguinal area. Patient's polycystic ovaries were also appreciated. Blood loss: Less than 2 cc Complications: None Coding CPT Codes Pulmonary/Thoracic - Pulmonary and Thoracic: 66843 Thoracentesis w imaging ([id number]) [facility] [place] Pulmonary/Thoracic Procedure 2: Pulmonary and Thoracic: 91601 Thoracentesis w imaging
--- NOTE | 2019-10-16 15:18 | XRay Report ---
XR chest 1V portable CLINICAL HISTORY: S/P Thoracentesis COMPARISON STUDY: 10/14/2019 FINDINGS: The heart is at the upper limits of normal in size. There is evidence for interval right-si ded thoracentesis. No pneumothorax is visualized. There is a persistent small right pleural effusion with associated right basilar airspace opacities. Bandlike opacities within the right midlung zone ar e likely atelectatic although an infectious/inflammatory processes could appear similar. The left bry g appears clear[ IMPRESSION: 1. Interval right-sided thoracentesis with reduction in the amount of right pleural fluid. No pneumot horax identified ACT 112: Negative or not required by law. Electronically signed by: Giovanni Wagner M.D. 10/16/2019 3:16 PM
--- NOTE | 2019-10-16 15:35 | Hospitalist Progress Note ---
Date of Service October 16, 2019 Assessment & Plan (1) Pleural effusion: Patient is a 44 yr female who presents with persistent productive cough associated with SOB since 3 weeks duration. No known history of travel or sick contact as per patient. Exudative Right Pleural Effusion --CT Chest: Large right pleural effusion which occupies approximately 80% of the right hemithorax. Subtotal right lower lobe atelectasis and segmental right upper and right middle lobe atelectasis. Consolidation could appear similar but is considered less likely. The etiology for this pleural effusion is not clear by CT. Although within the differential, no CT evidence for malignancy. The findings could be correlated with thoracentesis results. Probable hepatomegaly with a small amount of perihepatic fluid. Enlargement of the lateral segment of the liver, partially imaged on this exam. --H/O Smoking --R/O malignancy --S/P thoracentesis 10/14/19 --1650 mL greenish tinged fluid was removed --Pleural fluid Cytology:Atypical Cells Present. Unable to entirely exclude a neoplastic process. --Had repeat thoracentesis on 10/16/19-- 2500 mL's of serous with greenish tinge fluid was removed : Cytology:pending --No leukocytosis, afebrile --No known history of travel, sick contact --Procalcitonin: <0.05 --Lactate: 1.0 --SARS CoV-2: Negative --Influenza PCR: Negative --Blood Cultures:No growth to date --Appreciate Pulmonology Input --Continue IV antibiotics>>Transitioned to PO Doxycycline --Saturating well on room air --Will get CT ABD/Pelvis to R/O malignancy --Discussed with Oncology Pedro Luis store protection specialist:May need Pleural biopsy if Cytology/CT ABD not diagnostic --Needs follow up with Oncology upon discharge Abnormal UA:UTI ruled out contaminated sample Urine Culture: Mixed probable skin charisse Diabetes Mellitus Last HbA1C:7.3 Hold PO meds Continue Insulin therapy per Protocol Monitor BGs Hypothyroidism TSH: wnl Continue Levothyroxine Depression Continue duloxetine H/O mild intellectual disability As per records Hypertension BP slightly elevated Increase Amlodipine to 10mg daily monitor DVT Px: Lovenox SQ Code Status Full Code Admission and Anticipated Discharge Date Admission Date: October 14, 2019 Subjective Patient is seen and examined at bedside Dyspnea Improved Less cough--Continues to improve No new complaints Denies any chest pain, SOB, dizziness, nausea, abd pain Had repeat Thoracentesis today Review of Systems Review of Systems: All systems reviewed & are unremarkable except as noted in HPI & below Physical Exam Physical Exam: Physical Exam: Vitals signs as noted above General Appearance:Obese, no apparent distress Head: normocephalic, Atraumatic Eyes: normal inspection, EOMI, PERRL Neck: supple, Trachea midline Respiratory/Chest: Decreased breath sounds on right , CTA Cardiovascular: S1, S2, No murmur Abdomen/GI:Soft, Non tender, Bowel sounds present Extremities/Musculoskelatal:normal inspection, no edema Neurologic/Psych:AAOX3, grossly no focal neurological deficits Skin: normal color, warm Results & Data Results & Data ([facility]) Vital Signs (Past 12 Hours) Vital Signs Temp Pulse Resp BP BP Pulse Ox 10/16/19 15:04 36.2 C L 94 H 20 137/83 93 10/16/19 07:17 36.4 C L 92 H 18 159/95 H 93 Laboratory Results Short CBC 10/16/19 Range/Units 05:16 WBC 10.22 (4.8-10.8) K/uL Hgb 12.4 (12.0-16.0) g/dL Hct 37.7 (37-47) % Plt Count 593 H (130-400) K/uL BMP 10/16/19 05:16 Sodium 135 L Potassium 4.1 Chloride 106 Carbon Dioxide 24 BUN 9 Creatinine 0.73 Glucose 136 H Calcium 8.4 L
[2019-10-16] MEDS: DOXYCYCLINE HYCLATE 100 MG CAP PO SCH ×2 (16:20→21:19)
[2019-10-16] MEDS ORDERED: IOVERSOL 100ml IV PRN (19:00)
--- NOTE | 2019-10-16 19:41 | CT Scan Report ---
CT SCAN OF THE ABDOMEN AND PELVIS WITH IV CONTRAST CLINICAL HISTORY: Pleural effusion. Neoplastic assessment. COMPARISON STUDY: Abdominal CT dated 11/28/2010. TECHNIQUE: Following the IV administration of 90 cc of Optiray 320, CT scan of the abdomen and pelvi s is performed from the lung bases to the proximal femora. Images are reviewed in the axial, sagittal , and coronal planes. IV contrast was administered without complication. A dose lowering technique wa s utilized adhering to the principles of ALARA. The examination is modestly degraded by motion artifa ct. CT DOSE: 1744.67 mGy.cm FINDINGS: Lung bases: The heart is normal in size and without pericardial effusion. There is a moderate right p leural effusion with right basilar consolidation. The left lung base is grossly clear. There is a tin y hiatal hernia. Liver: The contrast-enhanced liver is enlarged, measuring 27 cm in length. Heterogeneous low-attenuat ion is noted throughout the inferior right lobe. No discrete hepatic mass lesion is identified. There is no intrahepatic biliary ductal dilatation. The hepatic veins and portal veins are patent. Gallbladder: Unremarkable. Spleen: Normal in size and attenuation. Pancreas: Unremarkable. Adrenal glands: A 1.9 cm left adrenal nodule is pathologically indeterminant but unchanged dating dane to 2010. The right adrenal gland is normal in appearance. Kidneys: There is slightly asymmetric cortical atrophy of the left kidney as compared to the right. N o hydronephrosis is seen. The kidneys enhance symmetrically. Abdominal vasculature: The abdominal aorta is normal in course and caliber. Bowel: There is mild colonic fecal retention. No bowel obstruction is seen. The appendix is normal a s visualized. Peritoneum: There is a small volume of abdominopelvic ascites. No intraperitoneal free air is seen. N o definite peritoneal lesion is identified. Lymphadenopathy: None. Pelvic viscera: The bladder and uterus are normal as visualized. There is a large heterogeneous solid and cystic mass lesion centered in the pelvis, likely arising from the right ovary. This contains th ick and heterogeneous internal septations and foci of nodularity. This measures approximately 21 x 20 x 26.5 cm as seen on image #324. This displaces the adjacent loops of bowel. The left ovary seen on image #389 and measures 3.1 cm. No obvious left ovarian lesion is identified. Skeletal structures: No lytic or blastic lesions are seen. IMPRESSION: 1. There is a 26.5 cm solid and cystic mass lesion centered in the pelvis as detailed above. This carrie ears to arise from the right ovary and should be considered ovarian carcinoma until proven otherwise. 2. There is a small volume of abdominopelvic ascites. Although no definite peritoneal lesion is ident ified, the appearance is highly concerning for carcinomatosis. 3. There is a moderate right pleural effusion with right basilar consolidation. Correlate clinically for evidence of pneumonia. Radiographic follow-up to resolution is recommended. 4. The liver is enlarged measuring 27 cm in length. Heterogeneous attenuation is noted throughout the inferior right lobe, with no discrete hepatic mass lesion identified. This may represent foci of fib rosis or geographic steatosis. Attention at follow-up is recommended. 5. Additional findings as above. ACT 112: Negative or not required by law. Electronically signed by: Macro Garcia M.D. 10/16/2019 7:40 PM
[2019-10-17] MEDS: LEVOTHYROXINE SODIUM 200 MCG TABLET PO SCH (05:53)
[2019-10-17] MEDS: DOXYCYCLINE HYCLATE 100 MG CAP PO SCH (05:53)
[2019-10-17 07:43] LABS: Est GFR (African American) 123.9; Est GFR (Non-African American) 106.9
[2019-10-17] MEDS: VALACYCLOVIR HCL 500 MG TABLET PO SCH (08:31)
[2019-10-17] MEDS: CYANOCOBALAMIN 500 MCG TABLET (VITAMIN B-12) PO SCH (08:31)
[2019-10-17] MEDS: DULOXETINE HCL 20 MG CAP PO SCH (08:32)
[2019-10-17] MEDS: AMLODIPINE BESYLATE 5 MG TAB PO SCH (08:32)
[2019-10-17] MEDS: CALCIUM 600MG + VIT D 400 IU TAB PO SCH (08:33)
[2019-10-17] MEDS: FERROUS SULFATE 325 MG TAB PO SCH (08:33)
[2019-10-17] MEDS: LORATADINE 10 MG TAB PO SCH (08:33)
[2019-10-17] MEDS: INSULIN GLARGINE SOLOSTAR 100 UNITS/ML 3 ML PEN SC SCH (08:33)
[2019-10-17] MEDS: INSULIN ASPART 100 UNITS/ML 3 ML PEN SC SCH ×2 (08:34→12:59)
--- NOTE | 2019-10-17 10:18 | Hospitalist Progress Note ---
Date of Service October 17, 2019 Assessment & Plan (1) Pleural effusion: Patient is a 44 yr female who presents with persistent productive cough associated with SOB since 3 weeks duration. No known history of travel or sick contact as per patient. 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 Subtotal right lower lobe atelectasis and segmental right upper and right middle lobe atelectasis. Consolidation could appear similar but is considered less likely. The etiology for this pleural effusion is not clear by CT. Although within the differential, no CT evidence for malignancy. The findings could be correlated with thoracentesis results. Probable hepatomegaly with a small amount of perihepatic fluid. Enlargement of the lateral segment of the liver, partially imaged on this exam. --CT ABD:There is a 26.5 cm solid and cystic mass lesion centered in the pelvis as detailed above. This appears to arise from the right ovary and should be considered ovarian carcinoma until proven otherwise. There is a small volume of abdominopelvic ascites. Although no definite peritoneal lesion is identified, the appearance is highly concerning for carcinomatosis. There is a moderate right pleural effusion with right basilar consolidation. Correlate clinically for evidence of pneumonia. Radiographic follow-up to resolution is recommended. The liver is enlarged measuring 27 cm in length. Heterogeneous attenuation is noted throughout the inferior right lobe, with no discrete hepatic mass lesion identified. This may represent foci of fibrosis or geographic steatosis. Attention at follow-up is recommended. --H/O Smoking --S/P thoracentesis 10/14/19 --1650 mL greenish tinged fluid was removed --Pleural fluid Cytology:Atypical Cells Present. Unable to entirely exclude a neoplastic process. --Had repeat thoracentesis on 10/16/19-- 2500 mL's of serous with greenish tinge fluid was removed : Cytology:pending --CA-125: pending --No leukocytosis, afebrile --No known history of travel, sick contact --Procalcitonin: <0.05 --Lactate: 1.0 --SARS CoV-2: Negative --Influenza PCR: Negative --Blood Cultures:No growth to date --Appreciate Pulmonology Input --Continue IV antibiotics>>Transitioned to PO Doxycycline --Saturating well on room air --Discussed with Oncology on 10/17/19:May need Pleural biopsy if Cytology/CT ABD not diagnostic --Discussed with OBGYN Dr.Kaitlyn Ledesma (Patient's OBGYN) on 10/17/19--Needs follow up upon discharge for possible surgery --Updated patient and her mother (Ms.Tammy Brown) about right Ovarian Cystic Mass Abnormal UA:UTI ruled out contaminated sample Urine Culture: Mixed probable skin charisse Diabetes Mellitus Last HbA1C:7.3 Hold PO meds Continue Insulin therapy per Protocol Monitor BGs Hypothyroidism TSH: wnl Continue Levothyroxine Depression Continue duloxetine H/O mild intellectual disability As per records Hypertension BP slightly elevated Increase Amlodipine to 10mg daily monitor DVT Px: Lovenox SQ Code Status Full Code Admission and Anticipated Discharge Date Admission Date: October 14, 2019 Subjective Patient is seen and examined at bedside No new complaints Minimal cough No new complaints Denies any chest pain, SOB, dizziness, nausea, abd pain Discussed with OBGYN and patient's family today Review of Systems Review of Systems: All systems reviewed & are unremarkable except as noted in HPI & below Physical Exam Physical Exam: Physical Exam: Vitals signs as noted above General Appearance:Obese, no apparent distress Head: normocephalic, Atraumatic Eyes: normal inspection, EOMI, PERRL Neck: supple, Trachea midline Respiratory/Chest: Decreased breath sounds on right , CTA Cardiovascular: S1, S2, No murmur Abdomen/GI:Soft, distended, Non tender, Bowel sounds present Extremities/Musculoskelatal:normal inspection, no edema Neurologic/Psych:AAOX3, grossly no focal neurological deficits Skin: normal color, warm Results & Data Results & Data ([facility]) Vital Signs (Past 12 Hours) Vital Signs Temp Pulse Pulse Resp BP Pulse Ox 10/17/19 07:24 36.3 C L 97 H 18 134/86 94 10/17/19 01:50 91 H 16 91 10/16/19 22:45 36.8 C 90 18 138/84 94 10/16/19 22:30 93 H 16 94 Laboratory Results [facility] 10/17/19 07:03 Creatinine 0.70
--- NOTE | 2019-10-17 10:34 | Pulmonology Progress Note ---
Date of Service October 17, 2019 Assessment & Plan (1) Pleural effusion: --Large right-sided pleural effusion With compression atelectasis of the right middle and right lower lobe. Status post thoracentesis for 02/25/2020 with removal of 1650 mL greenish tinged fluid. Followed by another thoracentesis done 10/16/2019 removal of 2.5 L of similar fluid. Follow-up bilirubin and urea in the fluid. Procalcitonin negative. Pleural fluid: Protein: 5.1, LDH: 127, glucose: 145, pH: 7.36 Serum: Protein: 7.5, LDH: 129, Bilirubin: 0.3 Pleural fluid showed 19% lymphocytes and 79% meso and mono Exudative as per lights criteria. Etiology not clear yet. Cytology shows atypical cells. This favors malignancy likely coming from intra-abdominal mass which was appreciated on the CT chest yesterday. Follow-up repeat cytology from pleural fluid sent on 10/16/2019. --Questionable history of asthma Patient is also [id number] smoker Patient will benefit from pulmonary function test as an outpatient. --GENET Patient has CPAP machine at home, she is not compliant with it. Advised the patient to be compliant with meds CPAP machine. Plan: Pulmonary status dale patient doing much better. 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 I think the pleural fluid is likely malignant from possible ovarian CA. No further recommendations from pulmonary perspective. Will sign off. Recall if needed. Please note the above document was generated using voice recognition software. It may contain grammatical, syntax or spelling errors. (2) Shortness of breath: (3) Tobacco use disorder: Admission and Anticipated Discharge Date Admission Date: October 14, 2019 Subjective Patient seen and examined at bedside. No acute distress, no adverse events overnight. Shortness of breath is improved. Denies any chest pain, no headache, no dizziness. Good appetite. Denies any belly pain. Review of Systems Review of Systems: All systems reviewed & are unremarkable except as noted in HPI & below Physical Exam Physical Exam: Constitutional: No acute distress HEENT: EOMI, PERRLA Respiratory system: Decreased air entry on the right side, no wheeze, no rhonchi, mild crackles right lower lobe CVS: S1-S2 positive, no murmurs or gallops Abdomen: Soft, nontender, distended, positive bowel sounds x4, obese Extremities: +2 pulses bilaterally radialis/ dorsalis pedis, no cyanosis, no edema Neuro: Awake alert oriented x3 Psych: Normal mood and affect G/U: No Monson Skin: no rashes, warm and dry Lymphatic: no cervical or axillary lymphadenopathy Results & Data Results & Data ([facility]) Vital Signs (Past 12 Hours) Vital Signs Temp Pulse Pulse Resp BP Pulse Ox 10/17/19 07:24 36.3 C L 97 H 18 134/86 94 10/17/19 01:50 91 H 16 91 10/16/19 22:45 36.8 C 90 18 138/84 94 10/16/19 05:16 10/17/19 07:03 PG Care Time/CCT Total # of Minutes Spent Total Time Spent with Patient: Total time spent is greater than 50% in coordination of care (as documented) at patient's floor/unit and/or counseling patient: Coding Level of Care Code 11667 Subseq Hosp Care Lvl 2 Diagnoses Pleural effusion J90 Shortness of breath R06.02 Tobacco use disorder F17.200
--- NOTE | 2019-10-17 10:45 | Discharge Summary ---
Date of Service October 17, 2019 Admission HPI Per Admitting Provider CHIEF COMPLAINT: Cough and shortness of breath. HISTORY OF PRESENT ILLNESS: This is a 44-year-old female with past medical history significant for type 2 diabetes, polycystic ovaries, hyperlipidemia, hypothyroidism, chronic rhinitis, hypertension, hirsutism, intellectual disability, major depression who lives with her , presents with coughing. The patient states since 09/21/2019 she is having persistent cough, sometimes bringing whitish phlegm. Denies any fever, chills, and she is getting some shortness of breath. No chest pain. No nausea, no vomiting, no abdominal pain, no diarrhea. Appetite is okay, sleeping okay. No headache, no blurred vision, no earache, no runny nose, no sore throat, no dysphagia. Currently resting comfortably and saturating fine on 2 liters. Hemodynamically stable. The patient denies any travel history. Her also did not travel. She visited her mother who lives in [place] and she also did not travel, no sick contacts. Admission Exam Per Admitting Provider PHYSICAL EXAMINATION: GENERAL: The patient is obese, not in acute distress. VITAL SIGNS: Temperature 36.7, pulse 96, respiratory rate 24, blood pressure 154/91, oxygen 97% on 2 liters. HEENT: No pallor, no icterus. NECK: No neck masses. Supple. CARDIOVASCULAR: S1, S2 heard, regular rate and rhythm, no murmur, no gallop. RESPIRATORY SYSTEM: Normal AP diameter. No accessory muscle use. No wheezing, no crackles. ABDOMEN: Soft, bowel sounds present, nontender. No distention. CENTRAL NERVOUS SYSTEM: Cranial nerves II-XII grossly intact, nonfocal. EXTREMITIES: No edema, no erythema. Principal Diagnosis Exudative Right Pleural Effusion: Likely secondary to Ovarian Malignancy Right Ovarian Mass Discharge Data Allergies Allergy/AdvReac Type Severity Reaction Status Date / Time lisinopril Allergy Severe swelling Verified 10/13/19 22:30 of face, lips, tongue TWAN Inhibitors AdvReac Severe angioedema Verified 07/29/19 14:14 NSAIDS (Non-Steroidal AdvReac Severe angioedema Verified 07/29/19 14:14 Anti-Inflamma Consultations 10/13/19 22:53 ED Decision to Admit Stat 10/14/19 02:44 Consult Case Management - Discharge Planning Routine 10/14/19 08:00 Consult Pulmonology Routine Procedures Performed --CT Chest: Large right pleural effusion which occupies approximately 80% of the right hemithorax. Subtotal right lower lobe atelectasis and segmental right upper and right middle lobe atelectasis. Consolidation could appear similar but is considered less likely. The etiology for this pleural effusion is not clear by CT. Although within the differential, no CT evidence for malignancy. The findings could be correlated with thoracentesis results. Probable hepatomegaly with a small amount of perihepatic fluid. Enlargement of the lateral segment of the liver, partially imaged on this exam. --CT ABD:There is a 26.5 cm solid and cystic mass lesion centered in the pelvis as detailed above. This appears to arise from the right ovary and should be considered ovarian carcinoma until proven otherwise. There is a small volume of abdominopelvic ascites. Although no definite peritoneal lesion is identified, the appearance is highly concerning for carcinomatosis. There is a moderate right pleural effusion with right basilar consolidation. Correlate clinically for evidence of pneumonia. Radiographic follow-up to resolution is recommended. The liver is enlarged measuring 27 cm in length. Heterogeneous attenuation is noted throughout the inferior right lobe, with no discrete hepatic mass lesion identified. This may represent foci of fibrosis or geographic steatosis. Attention at follow-up is recommended. Ordered Studies 10/13/19 22:23 CT chest w con Stat 10/14/19 15:28 US point of care ultrasound Urgent 10/16/19 10:24 US point of care ultrasound Urgent 10/16/19 15:45 CT abd pelvis IV con only Urgent Hospital Course (1) Pleural effusion: Patient is a 44 yr female who presents with persistent productive cough associated with SOB since 3 weeks duration. No known history of travel or sick contact as per patient. 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 Subtotal right lower lobe atelectasis and segmental right upper and right middle lobe atelectasis. Consolidation could appear similar but is considered less likely. The etiology for this pleural effusion is not clear by CT. Although within the differential, no CT evidence for malignancy. The findings could be correlated with thoracentesis results. Probable hepatomegaly with a small amount of perihepatic fluid. Enlargement of the lateral segment of the liver, partially imaged on this exam. --CT ABD:There is a 26.5 cm solid and cystic mass lesion centered in the pelvis as detailed above. This appears to arise from the right ovary and should be considered ovarian carcinoma until proven otherwise. There is a small volume of abdominopelvic ascites. Although no definite peritoneal lesion is identified, the appearance is highly concerning for carcinomatosis. There is a moderate right pleural effusion with right basilar consolidation. Correlate clinically for evidence of pneumonia. Radiographic follow-up to resolution is recommended. The liver is enlarged measuring 27 cm in length. Heterogeneous attenuation is noted throughout the inferior right lobe, with no discrete hepatic mass lesion identified. This may represent foci of fibrosis or geographic steatosis. Attention at follow-up is recommended. --H/O Smoking --S/P thoracentesis 10/14/19 --1650 mL greenish tinged fluid was removed --Pleural fluid Cytology:Atypical Cells Present. Unable to entirely exclude a neoplastic process. --Had repeat thoracentesis on 10/16/19-- 2500 mL's of serous with greenish tinge fluid was removed : Cytology:pending --CA-125: pending --No leukocytosis, afebrile --No known history of travel, sick contact --Procalcitonin: <0.05 --Lactate: 1.0 --SARS CoV-2: Negative --Influenza PCR: Negative --Blood Cultures:No growth to date --Appreciate Pulmonology Input --Continue IV antibiotics>>Transitioned to PO Doxycycline --Saturating well on room air --Discussed with Oncology on 10/17/19:May need Pleural biopsy if Cytology/CT ABD not diagnostic --Discussed with OBGYN Dr.Kaitlyn Ledesma (Patient's OBGYN) on 10/17/19--Needs follow up upon discharge for possible surgery --Updated patient and her mother (Ms.Tammy Brown) about right Ovarian Cystic Mass Abnormal UA:UTI ruled out contaminated sample Urine Culture: Mixed probable skin charisse Diabetes Mellitus Last HbA1C:7.3 Hold PO meds Continue Insulin therapy per Protocol Monitor BGs Hypothyroidism TSH: wnl Continue Levothyroxine Depression Continue duloxetine H/O mild intellectual disability As per records Hypertension BP slightly elevated Increase Amlodipine to 10mg daily monitor DVT Px: Lovenox SQ Code Status Full Code Total Time Total Time Spent Total Time Spent (In Minutes): 42 minutes Total Time Includes: Examination of the Patient, Discharge Planning, Medication Reconciliation, Communication With Other Providers and Other Discharge Plan Discharge Items Patient Disposition: Home - Self-Care Reason For Visit: SOB Discharge Diagnosis: Right Pleural Effusion Right ovarian cystic mass Activity: Per Instructions section Exercise/Sports: Gradually increase as tolerated Non-emergency contact: Primary Care Provider and Physics Department Chair Call non-emergency contact if: you have any medication questions, your symptoms worsen, your pain is not controlled, your pain is worsening, your pain is unusual for you, your pain is concerning for you and you have a fever Follow-up/Referrals: Maxi Burns MD [Primary Care Provider] - 10/20/19 11:00 am (10/20/2019 11:00 AM Kenrick Deutsch MD PLEASE NOTE: Your follow up appointment will occur by telephone. The physician will call you on the appointment date and time. Office contact - [phone] ) Diet: Carb Consistent or DM2 and Heart Healthy Addtl Attending Provider Instructions: Follow-up with your primary care physician Dr. Burns in 1 week Follow-up with your [facility] Dr.Kaitlyn Ledesma for further evaluation of your right ovarian mass Your Blood test (CA-125); Blood Cultres and pleural fluid cytology results are pending at the time of discharge. Follow-up with your physician for results. Complete antibiotic course doxycycline as prescribed Your amlodipine is increased from 5 mg to 10 mg for better control of your blood pressure. Follow-up with your physician for further assistance with blood pressure management and medication changes. Seek immediate medical attention if your symptoms reoccur or worsen Pending Studies at Discharge: Yes Studies:: CA-125 levels Pleural fluid cytology Blood Culture Stand-Alone Forms: My [facility] [employer], Smoking Cessation Medications and DC Order Prescriptions: New doxycycline hyclate 100 mg Capsule 100 mg PO BID@0700,2100 Qty: 4 RF: 0 amlodipine 10 mg tablet 10 mg PO DAILY Qty: 30 RF: 0 Continued albuterol sulfate [Ventolin HFA] 90 mcg/actuation HFA aerosol inhaler 2 puff INHALATION QID PRN (Reason: Shortness Of Breath) Qty: 18 RF: 2 (DME) OneTouch Verio strip See Dose Instructions .ROUTE .MEDSUPPLY Qty: 10 RF: 0 loratadine 10 mg tablet 10 mg PO QAM Qty: 30 RF: 0 metformin [Glucophage] 1,000 mg Tablet 1,000 mg PO BID RF: 0 docusate sodium [Stool Softener] 100 mg Capsule 100 mg PO BID PRN (Reason: Constipation) RF: 0 fluticasone propionate [Flonase Allergy Relief] 50 mcg/actuation [place],Suspension 2 spray INTRANASAL QAM PRN (Reason: Allergy Symptoms) RF: 0 cyanocobalamin (vitamin B-12) [Vitamin B-12] 1,000 mcg Tablet Extended Release 1,000 mcg PO DAILY RF: 0 ferrous sulfate 325 mg (65 mg iron) Tablet 325 mg PO BID RF: 0 Caltrate 600 plus D 600 mg (1,500 mg)-800 unit Tablet,Chewable 1 tab PO DAILY RF: 0 Trulicity 0.75 mg/0.5 mL pen injector 0.75 mg SUBCUT WK RF: 0 furosemide [Lasix] 20 mg Tablet 20 mg PO DAILY PRN (Reason: Fluid Retention) Qty: 30 RF: 0 acetaminophen [Tylenol] 325 mg Tablet 325 mg PO Q6H PRN (Reason: Pain) RF: 0 valacyclovir 500 mg Tablet 1,000 mg PO DAILY RF: 0 levothyroxine 200 mcg Tablet 200 mcg PO DAILY RF: 0 duloxetine 20 mg Capsule,Delayed Release(Dr/Ec) 40 mg PO DAILY RF: 0 semaglutide 0.25 mg or 0.5 mg(2 mg/1.5 mL) Pen Injector 0.25 mg SUBCUT WK RF: 0 Discontinued amlodipine [Norvasc] 5 mg tablet 5 mg PO DAILY Qty: 30 RF: 3 Discharge Orders: Discharge Order (Routine); Ordered 10/17/19 Ordered By: Bakari Quarles Admission Data Admit Date/Time: 10/14/19 00:33 Attending Provider: Bakari Quarles Admit Provider: Amrik Reyna Primary Care Provider: Maxi Burns Other Providers: Amrik Reyna ; Ciro Sinclair Other Interventions: Discharge Summary Assessment (RN) Last Done: 10/17/19 11:21
== END 2019-10-17 13:56 | disposition home or self-care (01) | DRG 187 ==
LOC: ED 20:15 → 2S 10-14 00:33 → 2W 10-15 14:47

== ENCOUNTER 2019-10-22 20:18 | Inpatient (IN) ==
--- NOTE | 2019-10-22 20:55 | Emergency Department Note ---
History of Present Illness General Chief complaint: Shortness of Breath/Dyspnea Stated complaint: FLUID IN LUNG, SOB Time Seen by Provider: 10/22/19 20:39 Source: patient History of Present Illness Provider complaint: Shortness of breath Onset (ago): day(s) 2 Location: chest Severity: moderate Maximum Pain Intensity: 5 Relieved By: + none Associated symptoms: + cough (Nonproductive); no chest pain, no fever/chills, no malaise and no nausea/vomiting This is a 44-year-old female who was recently admitted to the hospital for dyspnea presenting with shortness of breath for the past 2 days. The patient stated that she had fluid in her lungs which was drained in the hospital. She felt better afterwards but now states for the past 2 days she has had a nonproductive cough with shortness of breath. She states she was tested for COVID-19 while in the hospital and that was negative. She has no known exposures to COVID-19. She denies any anosmia or difficulty with her taste. She has had no fevers or muscle aches. She denies chest pain, vomiting or diarrhea. She states she feels like her lungs are filling up with fluid again. She denies any leg swelling or pain. She states she is not sure why she had fluid in her lungs. Home Medications Home Medications Medication Instructions Recorded Confirmed Type docusate sodium [Stool Softener] 100 mg PO BID 08/17/18 10/22/19 History fluticasone propionate [Flonase 2 spray INTRANASAL QAM PRN 08/17/18 10/22/19 History Allergy Relief] metformin [Glucophage] 1,000 mg PO BID 08/17/18 10/22/19 History loratadine 10 mg tablet 10 mg PO QAM #30 tab 03/06/19 10/22/19 History acetaminophen [Tylenol] 325 mg PO Q6H PRN 04/26/19 10/22/19 History duloxetine 40 mg PO DAILY 04/27/19 10/22/19 History levothyroxine 200 mcg PO QAM 04/27/19 10/22/19 History valacyclovir 1,000 mg PO DAILY 04/27/19 10/22/19 History Caltrate 600 plus D 1 tab PO DAILY 10/13/19 10/22/19 History Trulicity 0.75 mg SUBCUT WK 10/13/19 10/22/19 History cyanocobalamin (vitamin B-12) 1,000 mcg PO DAILY 10/13/19 10/22/19 History [Vitamin B-12] ferrous sulfate 325 mg PO BID 10/13/19 10/22/19 History amlodipine 10 mg PO DAILY #30 tab 10/17/19 10/22/19 Rx furosemide [Lasix] 20 mg PO DAILY PRN #30 tab 10/17/19 10/22/19 Rx albuterol sulfate [Ventolin HFA] 2 puff INHALATION Q6H PRN 10/22/19 10/22/19 History lovastatin 40 mg PO HS 10/22/19 10/22/19 History Allergies Allergy/AdvReac Type Severity Reaction Status Date / Time lisinopril Allergy Severe swelling Verified 10/22/19 21:22 of face, lips, tongue TWAN Inhibitors AdvReac Severe Angioedema Verified 10/22/19 21:22 NSAIDS (Non-Steroidal AdvReac Severe Angioedema Verified 10/22/19 21:22 Anti-Inflamma Past Med/Surg History Medical History Asthma (Chronic) Chronic bilateral low back pain without sciatica (Chronic) Degenerative joint disease of cervical spine (Chronic) Diabetes mellitus type 2, controlled (Chronic) Diabetes mellitus, type II (Chronic) Herpes simplex (Chronic) Hirsutism (Chronic) History of abnormal uterine bleeding History of endometrial hyperplasia Hyperlipidemia (Chronic) Hypertension (Chronic) Hypothyroidism (Chronic) Intellectual disability (Chronic) Morbid obesity (Chronic) Polycystic ovarian syndrome (Chronic) Severe obstructive sleep apnea (Chronic) Type 2 diabetes mellitus (Chronic) Surgical History H/O oral surgery History of endometrial biopsy S/P D&C (status post dilation and curettage) S/P tonsillectomy Family History Aunt Breast cancer maternal aunt Family/Other Diabetes Other Family history non-contributory Denies family history of Ovarian cancer Colorectal cancer Social History Preferred Language: Bulgarian Communication Ability: Effective [place] Required: No Beliefs That Will Affect Care: None marital status: Current Living Situation: Spouse Feels Safe at Home: Yes Smoking Status: Never smoker Hx Alcohol Use: No Hx Substance Use: No Review of Systems See HPI for pertinent positives & negatives. and A total of 10 systems reviewed and were otherwise negative Physical Exam Vital Signs Vital Signs - 24 hr 10/22/19 20:20 10/22/19 20:29 10/22/19 20:45 Temperature 36.7 C Temperature Source Oral Pulse Rate 105 H 98 H Pulse Rhythm Regular Regular Pulse Strength Normal Respiratory Rate 24 22 Respiratory Effort / Characteristics Non-Labored Spontaneous Non-Labored Spontaneous Respiratory Depth Normal Normal Respiratory Pattern Regular Regular Blood Pressure 137/77 Blood Pressure Mean 97 Blood Pressure Position Sitting Pulse Oximetry 96 97 Oxygen Delivery Method Room Air Room Air Room Air Sepsis Recent Fever Within 48 Hours No Sepsis Action Taken by Nursing No Action Required Pulse Oximetry Post Tiitration 97 Constitutional: Vital signs reviewed. Hirsute Eyes: Pupils are equal round reactive to light. Conjunctiva are noninjected. ENT: Pharynx is clear without erythema or exudate. Mucous membranes are moist. Neck supple without meningeal signs. Respiratory: Clear to auscultation bilaterally. Breath sounds are equal bilaterally. Cardiovascular: Regular rate and rhythm. No rubs or gallops. GI: Soft, nondistended and nontender. Bowel sounds are present. Musculoskeletal: No peripheral edema. No lower extremity tenderness. Integumentary: No cyanosis. or jaundice. Neurological: The patient is awake and alert. No focal deficits. Psychiatric: Normal affect. Not anxious appearing. Medical Decision Making Differential Diagnosis Pleural effusion, malignant effusion, anemia, pneumonia, cardiac Medical Records Attestation: I reviewed the patient's medical records. The patient was admitted to the hospital earlier this month for dyspnea. She was found to have a large right-sided pleural effusion. She underwent thoracentesis. Pathology shows no malignancy. She was positive for inflammation and mesothelial cells. Home Medications Current Medication List: was personally reviewed by me Laboratory Data Result diagrams: 10/22/19 20:45 10/22/19 20:45 Lab Results 10/22/19 10/22/19 10/22/19 Range/Units 20:45 20:45 20:45 WBC 11.99 H (4.8-10.8) K/uL RBC 4.38 (4.2-5.4) M/uL Hgb 11.5 L (12.0-16.0) g/dL Hct 35.2 L (37-47) % MCV 80.4 (80-100) fL MCH 26.3 (25-34) pg MCHC 32.7 (32-36) g/dL RDW Std Deviation 45.8 (36.4-46.3) fL RDW Coeff of Wojciech 15.6 H (11.5-14.5) % Plt Count 454 H (130-400) K/uL MPV 9.2 (7.4-10.4) fL Immature Gran % (Auto) 0.3 % Neut % (Auto) 72.1 % Lymph % (Auto) 20.3 % [place] % (Auto) 5.5 % Eos % (Auto) 1.6 % Baso % (Auto) 0.2 % Immature Gran # (Auto) 0.03 H (0.00-0.02) K/uL Neut # (Auto) 8.66 H (1.4-6.5) K/uL Lymph # (Auto) 2.43 (1.2-3.4) K/uL [place] # (Auto) 0.66 H (0.11-0.59) K/uL Eos # (Auto) 0.19 (0-0.5) K/uL Baso # (Auto) 0.02 (0-0.2) K/uL PT 11.4 (9.0-12.0) Seconds INR 1.1 (0.9-1.1) APTT 27.4 (21.0-31.0) Seconds PTT Ratio 1.0 Sodium 135 L (136-145) mmol/L Potassium 3.6 (3.5-5.1) mmol/L Chloride 104 (98-107) mmol/L Carbon Dioxide 24 (21-32) mmol/L Anion Gap 7.0 (3-11) BUN 9 (7-18) mg/dl Creatinine 0.65 (0.6-1.2) mg/dl Est Cr Clr Drug Dosing 151.0 ml/min Est GFR ( Amer) 126.9 Est GFR (Non-Af Amer) 109.5 BUN/Creatinine Ratio 13.3 (10-20) Glucose 147 H (70-99) mg/dl Calcium 8.4 L (8.5-10.1) mg/dl Total Bilirubin 0.2 (0.2-1) mg/dl AST 8 L (15-37) U/L ALT 13 (12-78) U/L Alkaline Phosphatase 96 (45-117) U/L Troponin I < 0.015 (0-0.045) ng/ml Total Protein 7.2 (6.4-8.2) gm/dl Albumin 3.0 L (3.4-5.0) gm/dl Globulin 4.2 H (2.5-4.0) gm/dl Albumin/Globulin Ratio 0.7 L (0.9-2) Imaging Data Radiologist's Impression: XR chest 1V portable CLINICAL HISTORY: Dyspnea SHORTNESS OF BREATH COMPARISON STUDY: 10/16/2019 FINDINGS: The heart is at the upper limits of normal in size. There is increasing moderate to large right pleural effusion with associated right lung airspace opacities, likely representing compressive atelectasis. There is no focal pulmonary consolidation on the left. There is no left pleural effusion.[ IMPRESSION: Increasing right pleural effusion with right lung opacities likely representing compressive atelectasis ACT 112: Negative or not required by law. Electronically signed by: Giovanni Wagner M.D. 10/22/2019 9:14 PM ECG Data Attestation: I personally reviewed and interpreted this ECG as follows: Indication: + SOB/dyspnea Rate (beats per minute): 100 Rhythm: + normal sinus ECG Intervals/blocks: no First degree AV block ECG ST segments: no ST depression and no ST elevation ECG Findings: + Other (Low voltage QRS); no PVCs Blood Pressure Blood Pressure Findings: Elevated blood pressure Blood Pressure Disposition: Referred to patients primary care provider [facility] Narrative I did evaluate the patient as noted above. IV access was established. I did order and personally review the patient's 12-lead EKG as described above. There is low voltage QRS but no acute ischemic changes. I did order and personally reviewed the images of the patient's chest x-ray as described above. Chest x- ray demonstrates a large right pleural effusion. I did order and review the patient's blood work as noted in the electronic medical record. Her white count is slightly elevated. She is anemic. Electrolytes demonstrate a sodium of 135. I did discuss the test results with the patient. She will be hospitalized for further care and evaluation and possible repeat thoracentesis. I did discuss the case with the hospitalist and wrapper caser. Impression & Plan Acute dyspnea, Anemia, Pleural effusion on right Discharge Plan Visit Data Chief Complaint: Shortness of Breath/Dyspnea Stated Complaint: FLUID IN LUNG, SOB ED Provider: Ever Powers Discharge Problem: Acute dyspnea, Anemia, Pleural effusion on right Patient Disposition: Being Evaluated by Hospitalist Condition: Good Forms Stand Alone Forms: My [facility] Prescriptions Prescriptions: No Action loratadine 10 mg tablet 10 mg PO QAM Qty: 30 RF: 0 metformin [Glucophage] 1,000 mg Tablet 1,000 mg PO BID RF: 0 docusate sodium [Stool Softener] 100 mg Capsule 100 mg PO BID RF: 0 fluticasone propionate [Flonase Allergy Relief] 50 mcg/actuation [place], Suspension 2 spray INTRANASAL QAM PRN (Reason: Allergy Symptoms) RF: 0 cyanocobalamin (vitamin B-12) [Vitamin B-12] 1,000 mcg Tablet Extended Release 1,000 mcg PO DAILY RF: 0 ferrous sulfate 325 mg (65 mg iron) Tablet 325 mg PO BID RF: 0 Caltrate 600 plus D 600 mg (1,500 mg)-800 unit Tablet,Chewable 1 tab PO DAILY RF: 0 Trulicity 0.75 mg/0.5 mL pen injector 0.75 mg SUBCUT WK RF: 0 amlodipine 10 mg tablet 10 mg PO DAILY Qty: 30 RF: 0 furosemide [Lasix] 20 mg Tablet 20 mg PO DAILY PRN (Reason: Fluid Retention) Qty: 30 RF: 0 acetaminophen [Tylenol] 325 mg Tablet 325 mg PO Q6H PRN (Reason: Pain) RF: 0 valacyclovir 500 mg Tablet 1,000 mg PO DAILY RF: 0 levothyroxine 200 mcg Tablet 200 mcg PO QAM RF: 0 duloxetine 20 mg Capsule,Delayed Release(Dr/Ec) 40 mg PO DAILY RF: 0 lovastatin 40 mg tablet 40 mg PO HS RF: 0 albuterol sulfate [Ventolin HFA] 90 mcg/actuation HFA aerosol inhaler 2 puff INHALATION Q6H PRN (Reason: Shortness Of Breath) RF: 0 Referrals Referrals: Maxi Burns MD [Primary Care Provider] -
[2019-10-22 20:56] LABS: Basophils # (auto) 0.02 K/uL (0-0.2); Basophils % (auto) 0.2 %; Eosinophils # (auto) 0.19 K/uL (0-0.5); Eosinophils % (auto) 1.6 %; Hematocrit (blood only) 35.2 % (37-47); Hemoglobin 11.5 g/dL (12.0-16.0); Immature Granulocytes # (auto) 0.03 K/uL (0.00-0.02); Immature Granulocytes % (auto) 0.3 %; Lymphocytes # (auto) 2.43 K/uL (1.2-3.4); Lymphocytes % (auto) 20.3 %; Mean Corpuscular Hemoglobin 26.3 pg (25-34); Mean Corpuscular Hgb Conc 32.7 g/dL (32-36); Mean Corpuscular Volume 80.4 fL (80-100); Mean Platelet Volume 9.2 fL (7.4-10.4); Monocytes # (auto) 0.66 K/uL (0.11-0.59); Monocytes % (auto) 5.5 %; Neutrophils # (auto) 8.66 K/uL (1.4-6.5); Neutrophils % (auto) 72.1 %; Platelet Count 454 K/uL (130-400); RDW Coefficient of Variation 15.6 % (11.5-14.5); RDW Standard Deviation 45.8 fL (36.4-46.3); Red Blood Count 4.38 M/uL (4.2-5.4); White Blood Count 11.99 K/uL (4.8-10.8)
[2019-10-22 21:07] LABS: INR 1.1 (0.9-1.1); Partial Thromboplastin Time 27.4 Seconds (21.0-31.0); Prothrombin Time 11.4 Seconds (9.0-12.0)
[2019-10-22 21:13] LABS: Alanine Aminotransferase 13 U/L (12-78); Aspartate Aminotransferase 8 U/L (15-37); BUN Creatinine Ratio 13.3 (10-20); Blood Urea Nitrogen 9 mg/dl (7-18); Calcium 8.4 mg/dl (8.5-10.1); Carbon Dioxide 24 mmol/L (21-32); Chloride 104 mmol/L (98-107); Est GFR (African American) 126.9; Est GFR (Non-African American) 109.5; Glucose 147 mg/dl (70-99); Potassium 3.6 mmol/L (3.5-5.1); Sodium 135 mmol/L (136-145)
--- NOTE | 2019-10-22 21:16 | XRay Report ---
XR chest 1V portable CLINICAL HISTORY: Dyspnea SHORTNESS OF BREATH COMPARISON STUDY: 10/16/2019 FINDINGS: The heart is at the upper limits of normal in size. There is increasing moderate to large r ight pleural effusion with associated right lung airspace opacities, likely representing compressive atelectasis. There is no focal pulmonary consolidation on the left. There is no left pleural effusion .[ IMPRESSION: Increasing right pleural effusion with right lung opacities likely representing compressi ve atelectasis ACT 112: Negative or not required by law. Electronically signed by: Giovanni Wagner M.D. 10/22/2019 9:14 PM
[2019-10-22 21:17] LABS: Albumin Globulin Ratio 0.7 (0.9-2); Alkaline Phosphatase 96 U/L (45-117); Bilirubin,Total 0.2 mg/dl (0.2-1); Globulin 4.2 gm/dl (2.5-4.0); Total Protein 7.2 gm/dl (6.4-8.2); Troponin I < 0.015 ng/ml (0-0.045)
[2019-10-22] MEDS ORDERED: ALBUTEROL HFA 8 GM INHALER INH PRN (23:14)
[2019-10-22] MEDS ORDERED: POLYETHYLENE (MIRALAX) 17 GM PACK PO PRN (23:14)
[2019-10-22] MEDS ORDERED: ACETAMINOPHEN 325 MG TAB PO PRN (23:14)
[2019-10-22] MEDS ORDERED: FUROSEMIDE 20 MG TAB PO PRN (23:14)
[2019-10-22] MEDS ORDERED: ONDANSETRON INJ 2 MG/ML 2 ML VIAL IV PRN (23:14)
[2019-10-22] MEDS ORDERED: NITROGLYCERIN SL 0.4 MG/TAB TAB SL PRN (23:14)
[2019-10-22] MEDS ORDERED: FLUTICASONE PROPIONATE NA SPR 16 GM BTL PRN (23:14)
[2019-10-22] MEDS ORDERED: DEXTROSE 50% 50 ML SYRINGE IV PRN (23:45)
[2019-10-22] MEDS ORDERED: GLUCOSE 10 TABS/TUBE PO PRN (23:45)
[2019-10-22] MEDS ORDERED: GLUCOSE 40% GEL 15 GM TUBE PO PRN (23:45)
[2019-10-22] MEDS ORDERED: GLUCAGON FOR INJ 1 MG VIAL IM PRN (23:45)
[2019-10-22] MEDS ORDERED: CARBOHYDRATES FOR HYPOGLYCEMIA PO PRN (23:45)
--- NOTE | 2019-10-23 00:28 | History and Physical Report ---
DATE OF ADMISSION: 10/22/2019 CHIEF COMPLAINT: Shortness of breath. HISTORY OF PRESENT ILLNESS: This is a 44-year-old female with past medical history significant for type 2 diabetes, polycystic ovaries, hyperlipidemia, hypothyroidism, chronic rhinitis, hypertension, hirsutism, intellectual disability, major depression, who lives with her , who was recently admitted on 10/14/2019 for shortness of breath and cough and found to have large right pleural effusion. She is status post thoracentesis 2 times with a large amount of of fluid taken out and it was thought to be exudative.At that time COVID test was done which was negative, flu was negative, and CAT scan of the abdomen and pelvis showed 26.5 cm solid and cystic mass lesion in the right ovary. Consider ovarian cancer until proven otherwise. She is supposed to follow with outpatient. She seems to be not clear about the diagnosis and she says she is supposed to be in [place] tomorrow. But she says after going home a couple of days she felt fine, then again she felt short of breath. Climbing uphill made her short of breath. She still has some cough with whitish phlegm. Denies any fever, chills. No chest pain, no nausea, no vomiting. Appetite is good. No headache. She has some dizziness. No blurred visions, no earache. Has some stuffed nose. No sore throat. No dysphagia. No nausea, no abdominal pain. She has some back pain. Ambulating okay. No diarrhea, no constipation, no blood in the stools or black stools. No hematuria. Currently resting comfortably and hemodynamically stable. Imaging studies showed again recurrence of right pleural effusion. ALLERGIES: TO LISINOPRIL, TWAN INHIBITORS, AND NSAIDS. PAST MEDICAL HISTORY: As mentioned above. PAST SURGICAL HISTORY: Thoracocentesis, Pap screen. MEDICATIONS: The patient is on Tylenol 325 mg p.o. q. 6 hours p.r.n., Ventolin 2 puffs inhalation q. 6 hours p.r.n., amlodipine 10 mg p.o. daily, Caltrate 600 plus D 1 tablet daily, vitamin B12 1000 mcg p.o. daily, Colace 100 mg p.o. b.i.d., duloxetine 40 mg p.o. daily, ferrous sulfate 325 mg p.o. b.i.d., Flonase 2 sprays intranasally p.r.n., Lasix 20 mg p.o. daily p.r.n., levothyroxine 200 mcg p.o. daily, loratadine 10 mg p.o. a.m., lovastatin 40 mg p.o. at bedtime, metformin 1000 mg p.o. b.i.d., Trulicity 0.75 mg subcutaneous weekly, Valacyclovir 1000 mg p.o. daily. FAMILY HISTORY: No family history on file. SOCIAL HISTORY: , lives with her . Former smoker, quit in 2006, prior to that smoked 1 pack a day for 20 years. No alcohol, no illicit drug use. REVIEW OF SYSTEMS: As per HPI. Rest of review of systems negative. PHYSICAL EXAMINATION: GENERAL: The patient is obese, not in acute distress. VITAL SIGNS: Temperature 36.7, pulse 98, respiratory rate 22, blood pressure 137/77, oxygen 97% on room air. HEENT: No pallor, no icterus. NECK: No JVD, no neck masses. Supple. CARDIOVASCULAR: S1, S2 heard, regular rate and rhythm. No murmur, no gallop. RESPIRATORY SYSTEM: Normal AP diameter. No accessory muscle use. Diminished breath sounds in the right side. ABDOMEN: Soft, bowel sounds present, nontender. No distention. CENTRAL NERVOUS SYSTEM: Cranial nerves II-XII grossly intact, nonfocal. EXTREMITIES: No edema, no erythema. LABORATORY DATA: WBC 11.9, hemoglobin 11.5, hematocrit 35.2, platelets 454. PT 11.4, INR 1.1, APTT 27.4. Sodium 135, potassium 3.6, chloride 104, bicarbonate 24, BUN 9, creatinine 0.6, serum glucose 147, calcium 8.4, total bilirubin 0.2, AST 8, ALT 13, alkaline phosphatase 96. Troponin I less than 0.015. IMAGING DATA: Chest x-ray, right pleural effusion. EKG: Normal sinus rhythm with rate of 100, nonspecific ST wave abnormalities. ASSESSMENT AND PLAN: This is a 44-year-old female who presents with recurrent right pleural effusion. 1. Shortness of breath secondary to recurrent right pleural effusion. Was here last week and status post thoracocentesis twice thought to be from right ovarian mass. We will observe in the med/surg tele, n.p.o. after midnight. Consult pulmonary in the a.m. for further recommendations. Currently hemodynamically stable and saturating fine. 2. Right ovarian mass. Needs close followup. Pathology from pleural fluid is negative for malignancy from last admission. 3. Obstructive sleep apnea, on CPAP. 4. Diabetes. Hold home medication. Insulin sliding scale. Follow the blood sugars. 5. Hypothyroidism. Continue Synthroid. 6. Depression. Continue duloxetine. 7. High blood pressure. Continue amlodipine. Monitor the blood pressure. 8. Deep venous thrombosis prophylaxis, sequential compression devices. DISPOSITION: Closely monitor in the med/surg tele. Level 1 full code. Expect to discharge home and follow with family doctor. DEIDRE
[2019-10-23] MEDS: LEVOTHYROXINE SODIUM 200 MCG TABLET PO SCH (06:04)
[2019-10-23] MEDS: DOCUSATE SODIUM 100 MG CAP PO SCH ×2 (08:30→20:22)
[2019-10-23] MEDS: LORATADINE 10 MG TAB PO SCH (08:30)
[2019-10-23] MEDS: CYANOCOBALAMIN 500 MCG TABLET (VITAMIN B-12) PO SCH (08:30)
[2019-10-23] MEDS: CALCIUM 600MG + VIT D 400 IU TAB PO SCH (08:30)
[2019-10-23] MEDS: VALACYCLOVIR HCL 500 MG TABLET PO SCH (08:31)
[2019-10-23] MEDS: FERROUS SULFATE 325 MG TAB PO SCH ×2 (08:31→20:22)
[2019-10-23] MEDS: AMLODIPINE BESYLATE 5 MG TAB PO SCH (08:31)
[2019-10-23] MEDS: INSULIN ASPART 100 UNITS/ML 3 ML PEN SC SCH ×4 (08:32→20:28)
[2019-10-23] MEDS: DULOXETINE HCL 20 MG CAP PO SCH (08:32)
[2019-10-23] MEDS ORDERED: PROPOFOL IV EMULSION 10 MG/ML 20 ML VIAL IV ONE (12:24)
[2019-10-23] MEDS ORDERED: ePHEDrine sulfate 50 MG/ML AMP IV PRN (12:24)
[2019-10-23] MEDS ORDERED: ONDANSETRON INJ 2 MG/ML 2 ML VIAL ONE (12:24)
[2019-10-23] MEDS ORDERED: ATROPINE SULFATE 0.1 MG/ML 10ML SYR IV PRN (12:24)
[2019-10-23] MEDS ORDERED: DEXAMETHASONE SOD INJ 4 MG/ML VIAL ONE (12:24)
[2019-10-23] MEDS ORDERED: LIDOCAINE HCL 2% 2 ML VIAL/AMP(20MG/ML) INFIL ONE (12:24)
[2019-10-23] MEDS ORDERED: ONDANSETRON INJ 2 MG/ML 2 ML VIAL IV PRN ×2 (12:24→17:29)
[2019-10-23] MEDS ORDERED: fentaNYL citrate 100 MCG/2 ML VIAL ONE ×3 (12:24→16:39)
[2019-10-23] MEDS ORDERED: GLYCOPYRROLATE 0.2 MG/ML VIAL ONE (12:24)
[2019-10-23] MEDS ORDERED: MIDAZOLAM HCL 1 MG/ML 2ML VIAL ONE (12:24)
[2019-10-23] MEDS ORDERED: NEOSTIGMINE METHYLSULFATE 5 MG/5 ML SYR ONE (12:24)
--- NOTE | 2019-10-23 12:31 | Anesthesiology Consultation ---
Date of Service October 23, 2019 Assessment & Plan (1) Encounter for pre-operative examination: Chart Review Chart Review: Acceptable Risk for Surgery and Patient NOT seen in Pre Admission Testing Consults Requested none History Surgery Operation Date: 10/23/19 13:25 Proposed Procedures p Right Video Assisted Thoracoscopy Biopsy and Pleurx Catheter - Andrea Edwards MD, FACS Height/Weight Height: 5 ft 5 in Weight: 125.6 kg Allergies Allergy/AdvReac Type Severity Reaction Status Date / Time lisinopril Allergy Severe swelling Verified 10/22/19 21:22 of face, lips, tongue TWAN Inhibitors AdvReac Severe Angioedema Verified 10/22/19 21:22 NSAIDS (Non-Steroidal AdvReac Severe Angioedema Verified 10/22/19 21:22 Anti-Inflamma Medications Home Medications Medication Instructions Recorded Confirmed Last Taken docusate sodium [Stool Softener] 100 mg PO BID 08/17/18 10/22/19 04/26/19 fluticasone propionate [Flonase 2 spray INTRANASAL QAM PRN 08/17/18 10/22/19 04/26/19 Allergy Relief] metformin [Glucophage] 1,000 mg PO BID 08/17/18 10/22/19 04/26/19 loratadine 10 mg tablet 10 mg PO QAM #30 tab 03/06/19 10/22/19 04/26/19 acetaminophen [Tylenol] 325 mg PO Q6H PRN 04/26/19 10/22/19 04/26/19 duloxetine 40 mg PO DAILY 04/27/19 10/22/19 04/26/19 levothyroxine 200 mcg PO QAM 04/27/19 10/22/19 04/26/19 valacyclovir 1,000 mg PO DAILY 04/27/19 10/22/19 04/26/19 Caltrate 600 plus D 1 tab PO DAILY 10/13/19 10/22/19 Unknown Trulicity 0.75 mg SUBCUT WK 10/13/19 10/22/19 Unknown cyanocobalamin (vitamin B-12) 1,000 mcg PO DAILY 10/13/19 10/22/19 Unknown [Vitamin B-12] ferrous sulfate 325 mg PO BID 10/13/19 10/22/19 Unknown amlodipine 10 mg PO DAILY #30 tab 10/17/19 10/22/19 Unknown furosemide [Lasix] 20 mg PO DAILY PRN #30 tab 10/17/19 10/22/19 Unknown albuterol sulfate [Ventolin HFA] 2 puff INHALATION Q6H PRN 10/22/19 10/22/19 Unknown lovastatin 40 mg PO HS 10/22/19 10/22/19 Unknown Active Medications Generic Name Dose Route Start Last Admin Trade Name Burtq PRN Reason Stop Dose Admin Amlodipine Besylate 10 mg 10/23/19 09:00 10/23/19 08:31 Norvasc PO 11/22/19 08:59 10 mg DAILY ELIO Administration Cyanocobalamin 1,000 mcg 10/23/19 09:00 10/23/19 08:30 Vitamin B-12 PO 11/22/19 08:59 1,000 mcg DAILY ELIO Administration Docusate Sodium 100 mg 10/23/19 09:00 10/23/19 08:30 Colace PO 11/22/19 08:59 100 mg BID ELIO Administration Duloxetine HCl 40 mg 10/23/19 09:00 10/23/19 08:32 Cymbalta PO 11/22/19 08:59 40 mg DAILY ELIO Administration Ferrous Sulfate 325 mg 10/23/19 09:00 10/23/19 08:31 Feosol PO 11/22/19 08:59 325 mg BID ELIO Administration Insulin Aspart 0 units 10/23/19 07:30 10/23/19 12:37 Novolog Flexpen SC 11/22/19 07:29 Not Given ACHS ELIO Levothyroxine Sodium 200 mcg 10/23/19 06:30 10/23/19 06:04 Synthroid PO 11/22/19 06:29 200 mcg DAILYBB ELIO Administration Loratadine 10 mg 10/23/19 09:00 10/23/19 08:30 Claritin PO 11/22/19 08:59 10 mg QAM ELIO Administration Multivitamins/Minerals 1 tab 10/23/19 09:00 10/23/19 08:30 Caltrate Plus PO 11/22/19 08:59 1 tab DAILY ELIO Administration Valacyclovir HCl 1,000 mg 10/23/19 09:00 10/23/19 08:31 Valtrex PO 11/22/19 08:59 1,000 mg DAILY ELIO Administration Past Medical History Medical History Asthma (Chronic) Chronic bilateral low back pain without sciatica (Chronic) Degenerative joint disease of cervical spine (Chronic) Diabetes mellitus type 2, controlled (Chronic) Diabetes mellitus, type II (Chronic) Herpes simplex (Chronic) Hirsutism (Chronic) History of abnormal uterine bleeding History of endometrial hyperplasia Hyperlipidemia (Chronic) Hypertension (Chronic) Hypothyroidism (Chronic) Intellectual disability (Chronic) Morbid obesity (Chronic) Polycystic ovarian syndrome (Chronic) Severe obstructive sleep apnea (Chronic) Type 2 diabetes mellitus (Chronic) past medical history significant for type 2 diabetes, polycystic ovaries, hyperlipidemia, hypothyroidism, chronic rhinitis, hypertension, hirsutism, intellectual disability, major depression, who lives with her , who was recently admitted on 10/14/2019 for shortness of breath and cough and found to have large right pleural effusion. She is status post thoracentesis 2 times with a large amount of of fluid taken out and it was thought to be exudative.At that time COVID test was done which was negative, flu was negative, and CAT scan of the abdomen and pelvis showed 26.5 cm solid and cystic mass lesion in the right ovary. Consider ovarian cancer until proven otherwise. Exercise / Class Metabolic Activity III < 4 Walking/Shop/Light housework Past Family History Family History Aunt Breast cancer maternal aunt Family/Other Diabetes Other Family history non-contributory Denies family history of Ovarian cancer Colorectal cancer Past Surgical History Surgical History H/O oral surgery History of endometrial biopsy S/P D&C (status post dilation and curettage) S/P tonsillectomy Past Anesthesia History No Hx of Anesthesia Complications and No Family Hx of Anesthesia Complications History of PONV No Hx of PONV and No Hx of Motion Sickness Social History Smoking Status: Former smoker Do You Dip or Chew Tobacco: No Hx Alcohol Use: Yes alcohol intake frequency: holidays/special occasions only Hx Substance Use: No Physical Exam Vital Signs Last Vital Signs Temp 36.3 C L 10/23/19 12:02 Pulse 92 H 10/23/19 12:02 Resp 20 10/23/19 12:02 BP 137/85 10/23/19 12:02 Pulse Ox 95 10/23/19 12:02 Testing Laboratory Results 10/22/19 20:45 10/22/19 20:45 PT 11.4 Seconds (9.0-12.0) 10/22/19 20:45 INR 1.1 (0.9-1.1) 10/22/19 20:45 APTT 27.4 Seconds (21.0-31.0) 10/22/19 20:45 10/23/19 10/23/19 11:38 07:50 POC Glucose 139 H 152 H Electrocardiogram Date: 10/22/19 Findings: + NSR @ (100) NSR. Low voltage QRS. Nonspecific ST and T wave abnormality. Chest X-Ray Date: 10/22/19 XR chest 1V portable CLINICAL HISTORY: Dyspnea SHORTNESS OF BREATH COMPARISON STUDY: 10/16/2019 FINDINGS: The heart is at the upper limits of normal in size. There is increasing moderate to large right pleural effusion with associated right lung airspace opacities, likely representing compressive atelectasis. There is no focal pulmonary consolidation on the left. There is no left pleural effusion.[ IMPRESSION: Increasing right pleural effusion with right lung opacities likely representing compressive atelectasis Other Testing CT scan 10/14/2019: IMPRESSION: 1. There is a 26.5 cm solid and cystic mass lesion centered in the pelvis as detailed above. This appears to arise from the right ovary and should be considered ovarian carcinoma until proven otherwise. 2. There is a small volume of abdominopelvic ascites. Although no definite peritoneal lesion is identified, the appearance is highly concerning for carcinomatosis. 3. There is a moderate right pleural effusion with right basilar consolidation. Correlate clinically for evidence of pneumonia. Radiographic follow-up to resolution is recommended. 4. The liver is enlarged measuring 27 cm in length. Heterogeneous attenuation is noted throughout the inferior right lobe, with no discrete hepatic mass lesion identified. This may represent foci of fibrosis or geographic steatosis. Attention at follow-up is recommended. 5. Additional findings as above.
--- NOTE | 2019-10-23 12:37 | Consultation Report ---
DATE OF CONSULTATION: 10/23/2019 REASON FOR CONSULTATION: Recurrent right pleural effusion in a patient with polycystic ovarian disease with a huge septated mass in her right ovary which measures 26.5 cm. The patient was initially drained via thoracentesis by Dr. Ciro Sinclair 9 days ago. 1650 mL of fluid was drained. There were some atypical cells but they did not call cancer. These may well have been reactive mesothelial cells. Unfortunately, this recurred quite quickly and just 2 days later, the patient had another thoracentesis for 2500 mL. Unfortunately, the patient had recurrence of her symptoms and her fluid quite quickly. The patient has been negative for COVID-19. She denied fevers or chills. She states she is very short of breath. The patient is intellectually challenged and has polycystic ovarian disease, hirsutism, and is obese. She also suffers from hyperthyroidism, hypertension with adult onset diabetes mellitus, and severe sleep apnea. I was asked to evaluate her as she is supposed to see the gynecologic oncologist about her ovarian mass; however, Dr. Clement Dang saw the patient and asked if I would evaluate her for possible diagnostic thoracoscopy, insertion of a PleurX catheter. We may also do a limited pleurectomy or pleurodesis. I had a long talk with the patient at the bedside. PAST MEDICAL HISTORY: See above. PAST SURGICAL HISTORY: 1. 0, para 0, abortus 0. 2. History of oral surgery. 3. Endometrial biopsy. 4. D and C. 5. Tonsillectomy. MEDICATIONS: Just see chart. ALLERGIES: LISINOPRIL, TWAN INHIBITORS, NONSTEROIDAL ANTI-INFLAMMATORY DRUGS ALL CAUSE ANGIOEDEMA. SOCIAL HISTORY: The patient lives at home with her . She has never smoked cigarettes. She does not have a job. FAMILY MEDICAL HISTORY: She had a maternal with breast cancer and diabetes does run in her family. She has no children. REVIEW OF SYSTEMS: The patient denies fevers. She does not have a productive cough. She does feel "a little full." She did improve when the fluid was drained. She has had no lower extremity edema, chest pain or palpitations. She has had no auditory or visual issues. She denies any neurologic symptoms. PHYSICAL EXAMINATION: GENERAL: This is a heavy 5 feet 5 inch, 275 pound female who is awake, alert and oriented. HEENT: Extraocular movements are intact. Her tongue is midline. Oral mucosa is moist. Her teeth are in good repair. NECK: Short, thick, but she has no lymphadenopathy, neck vein distention or carotid bruits. I do not detect any thyroid nodules. LUNGS: She does have decreased breath sounds on the right. She has no surgical incisions on her chest. HEART: She has a regular rate and rhythm of her heart. ABDOMEN: Obese and I can palpate a large mass in her periumbilical area. She has good pedal pulses with no peripheral edema. No joint effusions. NEUROLOGIC: She is intact. ASSESSMENT AND PLAN: Large homogenous effusion which has recurred. I have discussed this case with Dr. Clement Dang. One option would be to put a PleurX catheter in; however, I feel that she would be better served with either a pleurodesis or a pleurectomy. It is still unclear what her diagnosis is. I think that a pleurectomy would give us both a diagnosis and treat this fluid. She is recurring quite quickly. I had a long talk with the patient and stated I would be putting a small bore chest tube to expand her lung and also would we would put a PleurX catheter in place and she can be discharged when we get her chest tube out. I am hesitant to do that now because she is draining so much fluid. Her liver functions looked fine except for albumin is a little low at 3.0. Her CA-125 is markedly elevated at 637. She may well have an ovarian carcinoma. At any rate, we will get a diagnosis and treat this effusion today. The patient is agreeable. DEIDRE
--- NOTE | 2019-10-23 12:41 | Hospitalist Progress Note ---
Date of Service October 23, 2019 Assessment & Plan (1) Pleural effusion on right: Has recurrent right pleural effusion Prior paracentesis x2 and the exudative fluid did not show any malignant cells Admitted this time with shortness of breath and noted to have right pleural effusion Appreciate thoracic surgery input and recommendation Going to have Pleurx catheter put in with pleural biopsy (2) Acute dyspnea: As above (3) Right tubo-ovarian mass: Noted to have 21 x 20 x 26.5 cm right ovarian mass in CT of the abdomen on 10/16/2019 She was advised to go to [place] to have surgery and biopsy for a definitive diagnosis Markers for ovarian cancer have been negative We will discuss with her in detail (4) Diabetes mellitus type 2, controlled: We will hold metformin Continue SSI (5) Hypertension: Blood pressure is (6) Hypothyroidism: Continue supplement (7) Morbid obesity: (8) GENET (obstructive sleep apnea): Continue CPAP History of polycystic ovary syndrome DVT prophylaxis SCDs for now CODE STATUS Full Admission and Anticipated Discharge Date Admission Date: October 22, 2019 Subjective 10/23/2019 The patient was seen and examined in medical floor She was admitted with the shortness of breath secondary to right recurrent pleural effusion with right ovarian mass which was recently diagnosed Denies any abdominal pain, nausea and or vomiting Denies any shortness of breath at rest Review of Systems Review of Systems: All systems reviewed and are unremarkable except as noted below Constitutional: + weakness; no fever and no chills Respiratory: + dyspnea on exertion Physical Exam Physical Exam: Lying in bed comfortably Constitutional: well developed, well nourished and + morbidly obese; no acute distress and not ill appearing Eyes: PERRL, conjunctivae normal, anicteric sclerae ENMT: external ear and nose normal, oropharynx normal Neck: trachea midline, no thyromegaly Respiratory: normal respiratory effort; no respiratory distress Auscultation: + diminished lung sounds (Diminished breath sounds on right mid to lower lung rose) Cardiovascular: Rate/Rhythm: regular rate and regular rhythm Heart Sounds: no murmur Gastrointestinal (Abdomen): Inspection/Auscultation: + abdomen distended and normal bowel sounds Percussion/Palpation: abdomen soft; abdomen nontender Musculoskeletal: No acute arthritis in any joints Neurologic: moves all extremities; no focal motor deficits Lymphatic: no cervical or axillary lymphadenopathy Results & Data Results & Data ([facility]) Vital Signs (Past 12 Hours) Vital Signs Temp Pulse Pulse Resp BP Pulse Ox 10/23/19 12:02 36.3 C L 92 H 20 137/85 95 10/23/19 07:33 36.1 C L 79 20 134/52 L 95 10/23/19 07:18 94 H 10/23/19 03:47 37.0 C 86 20 127/79 93 10/23/19 03:40 88 20 93 Laboratory Results Short CBC 10/22/19 Range/Units 20:45 WBC 11.99 H (4.8-10.8) K/uL Hgb 11.5 L (12.0-16.0) g/dL Hct 35.2 L (37-47) % Plt Count 454 H (130-400) K/uL BMP 10/22/19 20:45 Sodium 135 L Potassium 3.6 Chloride 104 Carbon Dioxide 24 BUN 9 Creatinine 0.65 Glucose 147 H Calcium 8.4 L Cardiac Enzymes 10/22/19 Range/Units 20:45 Troponin I < 0.015 (0-0.045) ng/ml Liver Function 10/22/19 Range/Units 20:45 Total Bilirubin 0.2 (0.2-1) mg/dl AST 8 L (15-37) U/L ALT 13 (12-78) U/L Alkaline Phosphatase 96 (45-117) U/L Albumin 3.0 L (3.4-5.0) gm/dl Medications Administered Current Inpatient Medications Acetaminophen (Tylenol) 650 mg PO Q4H PRN PRN Reason: Pain or Fever Stop: 11/21/19 23:13 Albuterol (Ventolin Hfa) 2 puffs INH Q6H PRN PRN Reason: Shortness Of Breath Stop: 11/21/19 23:13 Amlodipine Besylate (Norvasc) 10 mg PO DAILY [facility] Stop: 11/22/19 08:59 Last Admin: 10/23/19 08:31 Dose: 10 mg Documented by: Atropine Sulfate (Atropine Sulfate) 0.5 mg IV Q1M PRN PRN Reason: PACU Use-HR<40 &/or Bradycardi Stop: 10/23/19 20:24 Cyanocobalamin (Vitamin B-12) 1,000 mcg PO DAILY ELIO Stop: 11/22/19 08:59 Last Admin: 10/23/19 08:30 Dose: 1,000 mcg Documented by: Dextrose (Dextrose 50%) 25 - 50 ml IV UD PRN; Protocol PRN Reason: Hypoglycemia Protocol Stop: 11/21/19 23:44 Docusate Sodium (Colace) 100 mg PO BID [facility] Stop: 11/22/19 08:59 Last Admin: 10/23/19 08:30 Dose: 100 mg Documented by: Duloxetine HCl (Cymbalta) 40 mg PO DAILY [facility] Stop: 11/22/19 08:59 Last Admin: 10/23/19 08:32 Dose: 40 mg Documented by: Ephedrine Sulfate (Ephedrine Sulfate) 5 mg IV Q5M PRN PRN Reason: PACU Use Only-SBP<90 mmHg Stop: 10/23/19 20:24 Fentanyl Citrate (Fentanyl Citrate) 25 mcg IV Q5M PRN PRN Reason: PACU Use Only-Pain Stop: 10/23/19 20:24 Ferrous Sulfate (Feosol) 325 mg PO BID [facility] Stop: 11/22/19 08:59 Last Admin: 10/23/19 08:31 Dose: 325 mg Documented by: Fluticasone Propionate (Flonase) 2 sprays NA QAM PRN PRN Reason: Allergy Symptoms Stop: 11/21/19 23:13 Furosemide (Lasix) 20 mg PO DAILY PRN PRN Reason: Fluid Retention Stop: 11/21/19 23:13 Glucagon (Glucagen) 1 mg IM UD PRN; Protocol PRN Reason: Hypoglycemia Protocol Stop: 11/21/19 23:44 Glucose (Glucose 40%) 15 - 30 gm PO UD PRN; Protocol PRN Reason: Hypoglycemia Protocol Stop: 11/21/19 23:44 Glucose (Dex4 Glucose) 4 - 8 tabs PO UD PRN; Protocol PRN Reason: Hypoglycemia Protocol Stop: 11/21/19 23:44 Insulin Aspart (Novolog Flexpen) 0 units SC ACHS [facility] Stop: 11/22/19 07:29 Last Admin: 10/23/19 08:32 Dose: 1 units Documented by: Levothyroxine Sodium (Synthroid) 200 mcg PO DAILYBB [facility] Stop: 11/22/19 06:29 Last Admin: 10/23/19 06:04 Dose: 200 mcg Documented by: Loratadine (Claritin) 10 mg PO QAM [facility] Stop: 11/22/19 08:59 Last Admin: 10/23/19 08:30 Dose: 10 mg Documented by: Lovastatin (Mevacor) 40 mg PO HS [facility]IO Stop: 11/22/19 20:59 Miscellaneous (Carbohydrates For Hypoglycemia) 15 - 30 gm PO UD PRN PRN Reason: Hypoglycemia Treatment Stop: 11/21/19 23:44 Multivitamins/Minerals (Caltrate Plus) 1 tab PO DAILY [facility]IO Stop: 11/22/19 08:59 Last Admin: 10/23/19 08:30 Dose: 1 tab Documented by: Nitroglycerin (Nitrostat) 0.4 mg SL UD PRN PRN Reason: Chest Pain Stop: 11/21/19 23:13 Ondansetron HCl (Zofran) 4 mg IV Q6H PRN PRN Reason: Nausea Stop: 11/21/19 23:13 Ondansetron HCl (Zofran) 4 mg IV ONCE PRN PRN Reason: PACU Use Only-Nausea/Vomiting Stop: 10/23/19 20:24 Polyethylene Glycol (Miralax Powder Packet) 17 gm PO DAILY PRN PRN Reason: Constipation Stop: 11/21/19 23:13 Valacyclovir HCl (Valtrex) 1,000 mg PO DAILY [facility] Stop: 11/22/19 08:59 Last Admin: 10/23/19 08:31 Dose: 1,000 mg Documented by:
[2019-10-23] MEDS ORDERED: BUPIVACAINE 0.5 % 5 MG/1 ML MPF 30ML VIAL ONE (12:59)
[2019-10-23] MEDS ORDERED: SODIUM CHLORIDE 0.9% PF 50 ML VIAL ONE (13:00)
[2019-10-23] MEDS ORDERED: CEFAZOLIN 3000MG/72.5 ML BAG IV ONE (13:08)
--- NOTE | 2019-10-23 13:09 | Pulmonology Progress Note ---
Date of Service October 23, 2019 Assessment & Plan (1) Pleural effusion on right: Impression: 44-year-old female with medical history as noted presenting with recurrent right-sided pleural effusion. Previous thoracentesis demonstrated an exudate. Initial cytology showed atypical cells present however follow-up cytology was negative. She has a large intra-abdominal mass likely of ovarian etiology and is pending [facility] oncology evaluation. 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 Alternatively the patient could have a sympathetic pleural effusion related to her intra-abdominal process. Recommendation: 1. Pleural effusion: The patient has had 2 diagnostic thoracenteses completed with nondiagnostic results. She now has fairly rapid reaccumulation. Option at this point time would be to proceed with catheter thoracentesis for a third cytology specimen. We could proceed with a Pleurx catheter placement however we do not have definitive diagnosis at this point time. Given the diagnostic uncertainty and need for definitive therapeutic management, I favor thoracic surgery consultation with consideration for video-assisted thoracoscopic evaluation with either pleurodesis or Pleurx catheter placement at that time. I reviewed the case with Dr. Mayank Edwards who evaluated the patient as well. After discussion with the patient and and with myself, we have recommended that the patient go for video-assisted thoracoscopic evaluation with potential placement of Pleurx catheter and/or chest tube. This should provide a definitive diagnosis as well as long-term treatment. The patient also will need to establish with [facility] oncology. Given the size of the lesion and persistent issues, consideration for transfer to [facility] to facilitate her evaluation may also be appropriate and is deferred to the patient's primary service. We will follow-up with results of her pleural fluid studies. Feel free to contact us if we can be of additional assistance. Admission and Anticipated Discharge Date Admission Date: October 22, 2019 Subjective Asked by hospitalist service to assist with evaluation management this patient been with recurrent pleural effusion. The patient been seen last week by 1 of my partners and underwent thoracentesis x2. She returned to the emergency room short of breath with reaccumulation of the pleural fluid. She has an complex ovarian mass and is pending evaluation at [facility] but has not yet seen the [facility] oncology providers. She denies fevers chills or night sweats. No chest pain or palpitations. No significant lower extremity edema. Review of Systems Review of Systems: Please refer to admission H&P. I have no additions or deletions. Physical Exam Physical Exam: Lying in bed comfortably Constitutional: well developed, well nourished and + morbidly obese; no acute distress and not ill appearing Eyes: PERRL, conjunctivae normal, anicteric sclerae ENMT: external ear and nose normal, oropharynx normal Neck: trachea midline, no thyromegaly Respiratory: normal respiratory effort; no respiratory distress Auscultation: + diminished lung sounds (Diminished breath sounds on right mid to lower lung rose) Cardiovascular: Rate/Rhythm: regular rate and regular rhythm Heart Sounds: no murmur Gastrointestinal (Abdomen): Inspection/Auscultation: + abdomen distended and normal bowel sounds Percussion/Palpation: abdomen soft; abdomen nontender Musculoskeletal: No acute arthritis in any joints Neurologic: moves all extremities; no focal motor deficits Lymphatic: no cervical or axillary lymphadenopathy Results & Data Results & Data ([facility]) Vital Signs (Past 12 Hours) Vital Signs Temp Pulse Pulse Resp BP Pulse Ox 10/23/19 12:02 36.3 C L 92 H 20 137/85 95 10/23/19 07:33 36.1 C L 79 20 134/52 L 95 10/23/19 07:18 94 H 10/23/19 03:47 37.0 C 86 20 127/79 93 10/23/19 03:40 88 20 93 Laboratory Results 10/22/19 20:45 10/22/19 20:45 Diagnostic Findings Imaging studies were reviewed. There appears to be a reaccumulation of a moderate to large sided right pleural effusion. Prior CT scans were also reviewed. PG Care Time/CCT Total # of Minutes Spent Total Time Spent with Patient: Total time spent is greater than 50% in coordination of care (as documented) at patient's floor/unit and/or counseling patient: Coding Level of Care Code 19914 Subseq Hosp Care Lvl 3 Diagnoses Pleural effusion on right J90 Time Spent (min) 48
[2019-10-23] MEDS ORDERED: SUCCINYLCHOLINE CHLORIDE 20 MG/ML 10 ML VIAL ONE (15:01)
[2019-10-23] MEDS ORDERED: ROCURONIUM BROMIDE 10 MG/ML 5 ML VIAL ONE (15:01)
--- NOTE | 2019-10-23 15:31 | Electrocardiogram Report ---
Test Reason : Blood Pressure : / mmHG Vent. Rate : 100 BPM Atrial Rate : 100 BPM P-R Int : 122 ms QRS Dur : 090 ms QT Int : 350 ms P-R-T Axes : 042 081 043 degrees QTc Int : 451 ms Normal sinus rhythm Low voltage QRS Nonspecific ST and T wave abnormality Abnormal ECG When compared with ECG of 13-OCT-2019 21:21, No significant change Confirmed by Efrain Germain ([id number]) on 10/23/2019 3:30:44 PM Referred By: REFERRED SELF Confirmed By:Efrain Germain
[2019-10-23] MEDS ORDERED: METOCLOPRAMIDE HCL INJ 5 MG/ML 2 ML VIAL IV ONE (16:05)
[2019-10-23] MEDS ORDERED: METOCLOPRAMIDE HCL INJ 5 MG/ML 2 ML VIAL ONE (16:20)
--- NOTE | 2019-10-23 16:39 | Anesthesiology Progress Note ---
Date of Service October 23, 2019 Anesthesia Post Procedure Vital Signs Vital Signs: Temp Pulse Pulse Pulse Resp BP BP 10/23/19 16:35 37.0 C 92 H 20 149/86 H 10/23/19 16:25 37.0 C 92 H 20 142/83 H 10/23/19 16:15 94 H 20 134/98 10/23/19 16:08 37.1 C 94 H 20 134/98 10/23/19 13:00 36.7 C 94 H 18 146/88 H 10/23/19 12:02 36.3 C L 92 H 20 137/85 10/23/19 07:33 36.1 C L 79 20 134/52 L 10/23/19 07:18 94 H 10/23/19 03:47 37.0 C 86 20 127/79 10/23/19 03:40 88 20 10/22/19 23:54 101 H 10/22/19 23:40 95 H 16 10/22/19 23:14 36.7 C 104 H 18 148/90 H 10/22/19 23:00 36.7 C 104 H 20 148/90 H 10/22/19 22:41 98 H 22 10/22/19 20:45 98 H 22 10/22/19 20:20 36.7 C 105 H 24 137/77 Pulse Ox Pulse Ox 10/23/19 16:35 93 10/23/19 16:25 93 10/23/19 16:15 96 10/23/19 16:08 96 10/23/19 13:00 94 10/23/19 12:02 95 10/23/19 07:33 95 10/23/19 07:18 10/23/19 03:47 93 10/23/19 03:40 93 10/22/19 23:54 10/22/19 23:40 97 10/22/19 23:14 97 97 10/22/19 23:00 97 10/22/19 22:41 97 10/22/19 20:45 97 10/22/19 20:20 96 Pain Intensity Back: Pain Intensity: 0 Transfer of Care Handoff Completed per policy Notes Mental Status: alert / awake / arousable Patient Amnestic to Procedure: Yes Nausea / Vomiting: adequately controlled Pain: adequately controlled Airway Patency, RR, SpO2: stable & adequate BP & HR: stable & adequate Hydration State: stable & adequate Anesthetic Complications: no major complications apparent and Pt Satisfied with anesthetic care
[2019-10-23] MEDS: fentaNYL citrate 100 MCG/2 ML VIAL IV PRN ×2 (16:40→16:45)
--- NOTE | 2019-10-23 16:40 | XRay Report ---
XR chest 1V portable CLINICAL HISTORY: pleurectomy postoperative COMPARISON STUDY: 10/22/2019 FINDINGS: Postoperative changes right hemithorax. 2 right-sided chest tubes. No significant postproce dural pneumothorax. Subcutaneous emphysematous changes noted on the right. Left lung is grossly clear. IMPRESSION: 1. Improved aeration right lung base on a postoperative basis. 2. No significant postprocedural pneumothorax. 3. Moderate subcutaneous emphysema right hemithorax. ACT 112: Negative or not required by law. The above report was generated using voice recognition software. It may contain grammatical, syntax or spelling errors. Electronically signed by: Roosevelt Shearer M.D. 10/23/2019 4:39 PM
--- NOTE | 2019-10-23 17:21 | Operative Report (OR) ---
DATE OF OPERATION: 10/23/2019 PREOPERATIVE DIAGNOSES: 1. Recurrent large right pleural effusion. 2. Large ovarian cyst with suspected ovarian carcinoma. POSTOPERATIVE DIAGNOSES: 1. Recurrent large right pleural effusion. 2. Large ovarian cyst with suspected ovarian carcinoma. PROCEDURE: 1. Right thoracoscopy with drainage of 2600 mL of fluid. 2. Total pleurectomy. SURGEON: Andrea Edwards MD. MANAGER RN CASE: RITA Barclay (Mr. Nguyen was present for the entire case and was instrumental in managing the camera and closed the incisions at the end). ANESTHESIA: General anesthesia with single lumen intubation. INDICATIONS FOR PROCEDURE AND FINDINGS: A 44-year-old with a history of polycystic ovarian disease who has a recurrent right pleural effusion that has been present just for a few weeks; however, it is very large. On 10/14/2019, she was drained for 1450 mL and 2 days later was drained for 2500 mL of fluid only to have it recur only 6 days later. She was admitted with increasing shortness of breath, although she was much improved after being tapped. I discussed this with Dr. Dang from pulmonary. One option will be to put a PleurX catheter; however, she is draining so much fluid, I think that this could well be problematic from a fluid standpoint. In addition, we did not really have a diagnosis. The cells were atypical on one of the cytologies. Dr. Dang and I discussed this and I discussed it with the patient, and we elected to proceed with a thoracoscopy with insertion of a PleurX catheter. On 10/23/2019, the patient was brought to the operating room and underwent an uncomplicated right thoracoscopy. She had no adhesions whatsoever. Immediately upon putting the 5 mm port, I placed a sucker and drained 2600 mL of rust-colored fluid. There was probably another 200 mL in the cavity when we finished. I put another 5 mm port and did not see evidence of an obvious malignancy. Given her findings, I elected to proceed with a pleurectomy. She tolerated it well with negligible blood loss and no air leak. DESCRIPTION OF PROCEDURE: The patient was brought to the operating room, laid in supine position. General anesthesia was induced. Endotracheal intubation was performed with a single lumen tube. The patient was placed in left lateral decubitus position, right chest prepped and draped in usual sterile fashion. The patient had her ventilations held and I placed a 5 mm scope just posterior to the scapular tip. Upon entering it, there was obviously a rust-colored fluid and we drained 2600 mL. Upon placing the scope, the remarkable finding was that there were no remarkable findings. The pleura looked minimally inflamed on the parietal surface; however, the lungs looked quite good. I then placed another port anterior to the latissimus dorsi muscle at about the same level above the scapular tip. We then placed another 5 mm port anterior to the midaxillary line above the diaphragm. With these 3 ports, we were able to perform our Exparel block. A total of 266 mg of Exparel in 20 mL of solution were mixed with 30 mL of 0.5% bupivacaine and 250 mL of normal saline. These have been used to inject each of the 3 port sites. We then performed intrathoracic intercostal block from the 2nd to the 12th rib. This was done under thoracoscopic guidance. We then used a long cautery to score the pleura and we peeled it up quite easily getting into a very nice plane and peeled it thin, and removed the very thin pleura all the way up to the top of the pleural cavity. We went from the mediastinum to the spine from anterior to posterior and took it all the way down to the diaphragmatic sulci. This came out quite nicely and we really got into no bleeding. It did not require any cautery. We irrigated out the chest, there was no air leak. We used an Endobag to remove all of the pleural fragments; they would not come out of the 5 mm ports. We then placed a 24-Maltese chest tube through the inferior most port, directed towards the apex. This was sutured in place with heavy silk suture. We then placed a PleurX catheter a few centimeters lateral to this, directed posteriorly and tunneled it under the skin and sutured it in place with silk suture. It should be noted that under thoracoscopic guidance, this was lying along the diaphragmatic gutter and posteriorly in the pleural cavity. A 4-0 Monocryl was used in running subcuticular fashion to approximate the wound edges. Antimicrobial dressings were placed. The patient tolerated it well, was extubated in the room. I attest to the content of the Intraoperative Record and any orders documented therein. Any exception s are noted below.
[2019-10-23] MEDS: ACETAMINOPHEN 1,000 MG/100 ML VIAL IV SCH (18:10)
[2019-10-23] MEDS: METOCLOPRAMIDE HCL INJ 5 MG/ML 2 ML VIAL IV SCH (20:22)
[2019-10-23] MEDS: LOVASTATIN 20 MG TAB PO SCH (20:22)
[2019-10-23] MEDS ORDERED: DOCUSATE SODIUM 100 MG CAP PO SCH (21:00)
[2019-10-24] MEDS: OXYCODONE HCL IR 5 MG TAB (IMMEDIATE RELEASE) PO PRN ×4 (00:29→23:07)
[2019-10-24] MEDS: ACETAMINOPHEN 1,000 MG/100 ML VIAL IV SCH ×3 (01:19→18:04)
[2019-10-24] MEDS: METOCLOPRAMIDE HCL INJ 5 MG/ML 2 ML VIAL IV SCH ×2 (05:48→13:55)
[2019-10-24] MEDS: LEVOTHYROXINE SODIUM 200 MCG TABLET PO SCH (05:48)
--- NOTE | 2019-10-24 07:03 | XRay Report ---
SINGLE VIEW CHEST CLINICAL HISTORY: Pleural effusion. Status post pleurectomy. FINDINGS: An AP, portable, upright chest radiograph is compared to chest x-ray dated 10/23/2019 and co rrelated with chest CT dated 10/13/2019. The examination is degraded by portable technique and patient rotation. The cardiomediastinal silhouette is unremarkable. There are low lung volumes. 2 right-side d chest tubes are in place. Airspace consolidation at the medial right lung base is unchanged. There is a trace right pleural effusion. Atelectasis is noted at the left lung base and in the left midlung . No pneumothorax is clearly identified. The bony thorax is grossly intact. Subcutaneous emphysema i s noted in the right chest wall and lower neck. IMPRESSION: 1. Low lung volumes. 2. There are 2 right-sided chest tubes in place. No pneumothorax is clearly identified. 3. Airspace consolidation at the medial right lung base is unchanged. 4. Trace right pleural effusion. ACT 112: Negative or not required by law. Electronically signed by: Marco Garcia M.D. 10/24/2019 7:02 AM
[2019-10-24] MEDS: CALCIUM 600MG + VIT D 400 IU TAB PO SCH (07:34)
[2019-10-24] MEDS: VALACYCLOVIR HCL 500 MG TABLET PO SCH (07:35)
[2019-10-24] MEDS: AMLODIPINE BESYLATE 5 MG TAB PO SCH (07:35)
[2019-10-24] MEDS: DULOXETINE HCL 20 MG CAP PO SCH (07:35)
[2019-10-24] MEDS: LORATADINE 10 MG TAB PO SCH (07:35)
[2019-10-24] MEDS: DOCUSATE SODIUM 100 MG CAP PO SCH ×2 (07:36→20:17)
[2019-10-24] MEDS: CYANOCOBALAMIN 500 MCG TABLET (VITAMIN B-12) PO SCH (07:36)
[2019-10-24] MEDS: INSULIN ASPART 100 UNITS/ML 3 ML PEN SC SCH ×4 (08:28→21:10)
[2019-10-24 08:57] LABS: Basophils # (auto) 0.01 K/uL (0-0.2); Basophils % (auto) 0.1 %; Eosinophils # (auto) 0.02 K/uL (0-0.5); Eosinophils % (auto) 0.1 %; Hematocrit (blood only) 37.6 % (37-47); Hemoglobin 12.2 g/dL (12.0-16.0); Immature Granulocytes # (auto) 0.04 K/uL (0.00-0.02); Immature Granulocytes % (auto) 0.3 %; Lymphocytes # (auto) 2.35 K/uL (1.2-3.4); Lymphocytes % (auto) 15.1 %; Mean Corpuscular Hemoglobin 26.5 pg (25-34); Mean Corpuscular Hgb Conc 32.4 g/dL (32-36); Mean Corpuscular Volume 81.7 fL (80-100); Mean Platelet Volume 9.3 fL (7.4-10.4); Monocytes # (auto) 0.56 K/uL (0.11-0.59); Monocytes % (auto) 3.6 %; Neutrophils # (auto) 12.57 K/uL (1.4-6.5); Neutrophils % (auto) 80.8 %; Platelet Count 515 K/uL (130-400); RDW Coefficient of Variation 15.7 % (11.5-14.5); RDW Standard Deviation 46.4 fL (36.4-46.3); White Blood Count 15.55 K/uL (4.8-10.8)
[2019-10-24 09:21] LABS: Est GFR (African American) 87.9; Est GFR (Non-African American) 75.8; Potassium 3.7 mmol/L (3.5-5.1)
[2019-10-24 09:22] LABS: BUN Creatinine Ratio 11.9 (10-20); Calcium 8.1 mg/dl (8.5-10.1); Creatinine Clr Calc Pharmacy 103.9 ml/min; Magnesium 1.9 mg/dl (1.8-2.4); Phosphorus 2.1 mg/dl (2.5-4.9)
--- NOTE | 2019-10-24 09:29 | Anesthesiology Progress Note ---
Date of Service October 24, 2019 Anesthesia Post Procedure Vital Signs Vital Signs: Temp Pulse Pulse Pulse Pulse Resp BP 10/24/19 07:28 36.8 C 103 H 18 157/98 H 10/24/19 03:23 36.5 C 95 H 19 133/82 10/24/19 03:08 100 H 16 10/23/19 23:44 36.5 C 100 H 18 132/83 10/23/19 23:25 94 H 16 10/23/19 19:35 36.5 C 98 H 20 133/80 10/23/19 17:51 37.2 C 101 H 18 134/87 10/23/19 17:49 97 H 10/23/19 17:29 10/23/19 17:02 37.0 C 93 H 18 124/82 10/23/19 16:51 92 H 19 132/87 10/23/19 16:44 90 20 136/90 10/23/19 16:35 37.0 C 92 H 20 149/86 H 10/23/19 16:25 37.0 C 92 H 20 142/83 H 10/23/19 16:15 94 H 20 134/98 10/23/19 16:08 37.1 C 94 H 20 134/98 10/23/19 13:00 36.7 C 94 H 18 146/88 H 10/23/19 12:02 36.3 C L 92 H 20 137/85 Pulse Ox Pulse Ox 10/24/19 07:28 93 10/24/19 03:23 94 10/24/19 03:08 95 10/23/19 23:44 95 10/23/19 23:25 96 10/23/19 19:35 94 10/23/19 17:51 92 10/23/19 17:49 10/23/19 17:29 92 10/23/19 17:02 94 10/23/19 16:51 94 10/23/19 16:44 94 10/23/19 16:35 93 10/23/19 16:25 93 10/23/19 16:15 96 10/23/19 16:08 96 10/23/19 13:00 94 10/23/19 12:02 95 Pain Intensity Back: Pain Intensity: 0 Right Chest: Pain Intensity: 10 Notes Mental Status: alert / awake / arousable and participated in evaluation Nausea / Vomiting: adequately controlled Pain: see Notes below (pt states pain medications are not working; ) Airway Patency, RR, SpO2: stable & adequate BP & HR: stable & adequate Hydration State: stable & adequate Anesthetic Complications: no major complications apparent and Pt Satisfied with anesthetic care
--- NOTE | 2019-10-24 11:07 | Hospitalist Progress Note ---
Date of Service October 24, 2019 Assessment & Plan (1) Pleural effusion on right: Has recurrent right pleural effusion Prior paracentesis x2 and the exudative fluid did not show any malignant cells Admitted this time with shortness of breath and noted to have right pleural effusion Appreciate thoracic surgery input and recommendation Going to have Pleurx catheter put in with pleural biopsy Status post placement of Pleurx catheter and chest tube on right side on 10/23/2019 Chest x-ray shows expanded lungs Management will be as per thoracic surgery and pulmonary (2) Acute dyspnea: As above (3) Right tubo-ovarian mass: Noted to have 21 x 20 x 26.5 cm right ovarian mass in CT of the abdomen on 10/16/2019 She was advised to go to [place] to have surgery and biopsy for a definitive diagnosis Markers for ovarian cancer have been negative Discussed with her RADIATION ONCOLOGY MANAGER Dr. Shantelle Ledesma -her office is in touch with [place] [facility] for further management of her ovarian mass Her records has been sent to [facility] in [place] I will try to keep in touch with them on Saturday and expedite her appointment on discharge from the hospital (4) Diabetes mellitus type 2, controlled: We will hold metformin Continue SSI (5) Hypertension: Blood pressure is (6) Hypothyroidism: Continue supplement (7) Morbid obesity: (8) GENET (obstructive sleep apnea): Continue CPAP History of polycystic ovary syndrome DVT prophylaxis SCDs for now CODE STATUS Full Admission and Anticipated Discharge Date Admission Date: October 23, 2019 Subjective 10/23/2019 The patient was seen and examined in medical floor She was admitted with the shortness of breath secondary to right recurrent pleural effusion with right ovarian mass which was recently diagnosed Denies any abdominal pain, nausea and or vomiting Denies any shortness of breath at rest 10/24/2019 The patient was seen in medical telemetry unit She complains of some pain at the chest tube site on right Remains weak and lethargic Denies any abdominal pain, nausea and/or vomiting Review of Systems Review of Systems: All systems reviewed and are unremarkable except as noted below Constitutional: + weakness; no fever and no chills Respiratory: + dyspnea on exertion Physical Exam Physical Exam: Sitting at the edge of the bed with minimal distress Constitutional: well developed, well nourished and + morbidly obese; no acute distress and not ill appearing Eyes: PERRL, conjunctivae normal, anicteric sclerae ENMT: external ear and nose normal, oropharynx normal Neck: trachea midline, no thyromegaly Respiratory: normal respiratory effort; no respiratory distress Auscultation: + diminished lung sounds (Diminished breath sounds on right mid to lower lung rose) Cardiovascular: Rate/Rhythm: regular rate and regular rhythm Heart Sounds: no murmur Extremities: + edema (Trace to 1+ edema bilaterally) Gastrointestinal (Abdomen): Inspection/Auscultation: + abdomen distended and normal bowel sounds Percussion/Palpation: abdomen soft and + ascites (Mild to moderate ascites clinically); abdomen nontender Neurologic: moves all extremities; no focal motor deficits Lymphatic: no cervical or axillary lymphadenopathy Results & Data Results & Data ([facility]) Vital Signs (Past 12 Hours) Vital Signs Temp Pulse Pulse Resp BP Pulse Ox 10/24/19 07:28 36.8 C 103 H 18 157/98 H 93 10/24/19 03:23 36.5 C 95 H 19 133/82 94 10/24/19 03:08 100 H 16 95 10/23/19 23:44 36.5 C 100 H 18 132/83 95 10/23/19 23:25 94 H 16 96 Laboratory Results Short CBC 10/24/19 Range/Units 08:45 WBC 15.55 H (4.8-10.8) K/uL Hgb 12.2 (12.0-16.0) g/dL Hct 37.6 (37-47) % Plt Count 515 H (130-400) K/uL BMP 10/24/19 08:45 Sodium 132 L Potassium 3.7 Chloride 102 Carbon Dioxide 21 BUN 11 Creatinine 0.93 Glucose 234 H Calcium 8.1 L Medications Administered Current Inpatient Medications Albuterol (Ventolin Hfa) 2 puffs INH Q6H PRN PRN Reason: Shortness Of Breath Stop: 11/21/19 23:13 Amlodipine Besylate (Norvasc) 10 mg PO DAILY [facility] Stop: 11/22/19 08:59 Last Admin: 10/24/19 07:35 Dose: 10 mg Documented by: Cyanocobalamin (Vitamin B-12) 1,000 mcg PO DAILY [facility] Stop: 11/22/19 08:59 Last Admin: 10/24/19 07:36 Dose: 1,000 mcg Documented by: Dextrose (Dextrose 50%) 25 - 50 ml IV UD PRN; Protocol PRN Reason: Hypoglycemia Protocol Stop: 11/21/19 23:44 Docusate Sodium (Colace) 100 mg PO BID [facility] Stop: 11/22/19 08:59 Last Admin: 10/24/19 07:36 Dose: 100 mg Documented by: Duloxetine HCl (Cymbalta) 40 mg PO DAILY [facility] Stop: 11/22/19 08:59 Last Admin: 10/24/19 07:35 Dose: 40 mg Documented by: Ferrous Sulfate (Feosol) 325 mg PO BID [facility] Stop: 11/22/19 08:59 Last Admin: 10/23/19 20:22 Dose: 325 mg Documented by: Fluticasone Propionate (Flonase) 2 sprays NA QAM PRN PRN Reason: Allergy Symptoms Stop: 11/21/19 23:13 Glucagon (Glucagen) 1 mg IM UD PRN; Protocol PRN Reason: Hypoglycemia Protocol Stop: 11/21/19 23:44 Glucose (Glucose 40%) 15 - 30 gm PO UD PRN; Protocol PRN Reason: Hypoglycemia Protocol Stop: 11/21/19 23:44 Glucose (Dex4 Glucose) 4 - 8 tabs PO UD PRN; Protocol PRN Reason: Hypoglycemia Protocol Stop: 11/21/19 23:44 Acetaminophen (Ofirmev) 1,000 mg in 100 mls @ 400 mls/hr IV Q8H [facility] Stop: 10/26/19 17:59 Last Admin: 10/24/19 01:19 Dose: Not Given Documented by: Insulin Aspart (Novolog Flexpen) 0 units SC ACHS [facility] Stop: 11/22/19 07:29 Last Admin: 10/24/19 08:28 Dose: 10 units Documented by: Levothyroxine Sodium (Synthroid) 200 mcg PO DAILYBB [facility] Stop: 11/22/19 06:29 Last Admin: 10/24/19 05:48 Dose: 200 mcg Documented by: Loratadine (Claritin) 10 mg PO QAM [facility] Stop: 11/22/19 08:59 Last Admin: 10/24/19 07:35 Dose: 10 mg Documented by: Lovastatin (Mevacor) 40 mg PO HS [facility] Stop: 11/22/19 20:59 Last Admin: 10/23/19 20:22 Dose: 40 mg Documented by: Metoclopramide HCl (Reglan) 10 mg IV Q8 [facility] Stop: 10/24/19 21:59 Last Admin: 10/24/19 05:48 Dose: 10 mg Documented by: Miscellaneous (Carbohydrates For Hypoglycemia) 15 - 30 gm PO UD PRN PRN Reason: Hypoglycemia Treatment Stop: 11/21/19 23:44 Morphine Sulfate (Morphine Sulfate) 1 - 2 mg IV Q1H PRN PRN Reason: Pain Stop: 11/06/19 17:28 Multivitamins/Minerals (Caltrate Plus) 1 tab PO DAILY [facility] Stop: 11/22/19 08:59 Last Admin: 10/24/19 07:34 Dose: 1 tab Documented by: Nitroglycerin (Nitrostat) 0.4 mg SL UD PRN PRN Reason: Chest Pain Stop: 11/21/19 23:13 Ondansetron HCl (Zofran) 4 mg IV Q4H PRN PRN Reason: Nausea And Vomiting Stop: 11/22/19 17:28 Oxycodone HCl (Roxicodone Immediate Rel) 5 mg PO Q6H PRN PRN Reason: Pain Stop: 11/06/19 17:28 Last Admin: 10/24/19 07:54 Dose: 5 mg Documented by: Polyethylene Glycol (Miralax Powder Packet) 17 gm PO DAILY PRN PRN Reason: Constipation Stop: 11/21/19 23:13 Valacyclovir HCl (Valtrex) 1,000 mg PO DAILY [facility] Stop: 11/22/19 08:59 Last Admin: 10/24/19 07:35 Dose: 1,000 mg Documented by:
--- NOTE | 2019-10-24 11:59 | Progress Notes ---
DATE: 10/24/2019 The patient was seen today. She looks much better. She is on room air. She is sitting up in bed. She is ambulating in the hallway. She is not requiring oxygen. She has got about 700 mL total, but some of this was right after surgery. She had about 400 total in the PACU, some of this was irrigation. I am quite pleased with her x-ray. She is having very little in the way of pain. Quite frankly, I am pleased with her. I think that she will have a good result with this. We need to continue this chest tube at least for another day. We will see how her x-ray looks tomorrow. DEIDRE
[2019-10-24] MEDS: FERROUS SULFATE 325 MG TAB PO SCH ×2 (13:56→20:17)
[2019-10-24] MEDS: MoRPHine SULFATE 2 MG/ML CARP IV PRN (20:08)
[2019-10-24] MEDS: LOVASTATIN 20 MG TAB PO SCH (20:17)
[2019-10-25] MEDS: ACETAMINOPHEN 1,000 MG/100 ML VIAL IV SCH ×3 (02:09→18:12)
[2019-10-25] MEDS: LEVOTHYROXINE SODIUM 200 MCG TABLET PO SCH (05:22)
[2019-10-25] MEDS: MoRPHine SULFATE 2 MG/ML CARP IV PRN (05:51)
[2019-10-25 05:54] LABS: Basophils # (auto) 0.03 K/uL (0-0.2); Basophils % (auto) 0.2 %; Eosinophils # (auto) 0.29 K/uL (0-0.5); Eosinophils % (auto) 2.3 %; Hematocrit (blood only) 36.4 % (37-47); Hemoglobin 11.8 g/dL (12.0-16.0); Immature Granulocytes # (auto) 0.04 K/uL (0.00-0.02); Immature Granulocytes % (auto) 0.3 %; Lymphocytes # (auto) 2.12 K/uL (1.2-3.4); Lymphocytes % (auto) 16.8 %; Mean Corpuscular Hemoglobin 26.5 pg (25-34); Mean Corpuscular Hgb Conc 32.4 g/dL (32-36); Mean Corpuscular Volume 81.6 fL (80-100); Mean Platelet Volume 9.2 fL (7.4-10.4); Monocytes % (auto) 7.1 %; Neutrophils # (auto) 9.24 K/uL (1.4-6.5); Neutrophils % (auto) 73.3 %; Platelet Count 527 K/uL (130-400); RDW Coefficient of Variation 15.7 % (11.5-14.5); RDW Standard Deviation 46.4 fL (36.4-46.3); Red Blood Count 4.46 M/uL (4.2-5.4); White Blood Count 12.62 K/uL (4.8-10.8)
[2019-10-25 06:34] LABS: BUN Creatinine Ratio 14.3 (10-20); Calcium 8.5 mg/dl (8.5-10.1); Est GFR (African American) 128.2; Est GFR (Non-African American) 110.6; Potassium 3.9 mmol/L (3.5-5.1)
[2019-10-25] MEDS: FERROUS SULFATE 325 MG TAB PO SCH ×2 (08:20→20:35)
[2019-10-25] MEDS: VALACYCLOVIR HCL 500 MG TABLET PO SCH (08:20)
[2019-10-25] MEDS: AMLODIPINE BESYLATE 5 MG TAB PO SCH (08:20)
[2019-10-25] MEDS: CALCIUM 600MG + VIT D 400 IU TAB PO SCH (08:20)
[2019-10-25] MEDS: DULOXETINE HCL 20 MG CAP PO SCH (08:20)
[2019-10-25] MEDS: CYANOCOBALAMIN 500 MCG TABLET (VITAMIN B-12) PO SCH (08:21)
[2019-10-25] MEDS: LORATADINE 10 MG TAB PO SCH (08:21)
[2019-10-25] MEDS: INSULIN ASPART 100 UNITS/ML 3 ML PEN SC SCH ×4 (08:23→20:35)
[2019-10-25] MEDS: DOCUSATE SODIUM 100 MG CAP PO SCH ×2 (08:45→20:40)
[2019-10-25] MEDS: OXYCODONE HCL IR 5 MG TAB (IMMEDIATE RELEASE) PO PRN (08:45)
--- NOTE | 2019-10-25 09:20 | XRay Report ---
XR chest 2V PA/lateral HISTORY: 44 years-old Female s/p VATS status post right lung surgery COMPARISON: Chest radiograph 10/24/2019 TECHNIQUE: PA and lateral views of the chest FINDINGS: Right-sided chest tube distal tip projects in the region of the right midlung. There is an additional chest tube which projects over the right hilum. Cardiac silhouette is upper limits of normal in size and is unchanged. Trace pleural effusions. Right greater than left bibasilar opacities persist. No d efinite pneumothorax. Subcutaneous emphysema of the right chest wall redemonstrated. IMPRESSION: 1. Unchanged positioning of the two right-sided chest tubes. 2. No definite pneumothorax identified. 3. Right greater than left bibasilar consolidation redemonstrated. ACT 112: Negative or not required by law. The above report was generated using voice recognition software. It may contain grammatical, syntax o r spelling errors. Electronically signed by: Jaleel Yuen M.D. 10/25/2019 9:18 AM
--- NOTE | 2019-10-25 09:57 | Pulmonology Progress Note ---
Date of Service October 25, 2019 Assessment & Plan (1) Pleural effusion on right: Impression: 44-year-old female with medical history as noted presenting with recurrent right-sided pleural effusion. Previous thoracentesis demonstrated an exudate. Initial cytology showed atypical cells present however follow-up cytology was negative. She has a large intra-abdominal mass likely of ovarian etiology and is pending HOUSE CALLS NURSE PRACTITIONER oncology evaluation. This could represent Meig's syndrome. Her Ca125 was markedly elevated over 600 Recommendation: 1. Pleural effusion: Management per thoracic surgery. Defer to management to them. 2. Ovarian mass: Again the patient requires a HOUSE CALLS NURSE PRACTITIONER oncology evaluation. Defer to primary service. We will sign off at this point time. Feel free to contact us if we can be of additional assistance. Admission and Anticipated Discharge Date Admission Date: October 23, 2019 Subjective Patient seen and examined. EMR reviewed. Patient states that she is doing relatively well. Her breathing is better after undergoing video-assisted thoracoscopic evaluation with pleurodesis, Pleurx placement and chest tube placement. She is not coughing or expectorating any phlegm. She does report some occasional wheezing. She complains of constipation mainly. Her pain is reasonably well controlled. She is off oxygen. Review of Systems Review of Systems: Unchanged from prior Physical Exam Physical Exam: Lying in bed comfortably Constitutional: well developed, well nourished and + morbidly obese; no acute distress and not ill appearing Eyes: PERRL, conjunctivae normal, anicteric sclerae ENMT: external ear and nose normal, oropharynx normal Neck: trachea midline, no thyromegaly Respiratory: normal respiratory effort; no respiratory distress Auscultation: + diminished lung sounds (Diminished breath sounds on right mid to lower lung rose) Cardiovascular: Rate/Rhythm: regular rate and regular rhythm Heart Sounds: no murmur Gastrointestinal (Abdomen): Inspection/Auscultation: + abdomen distended and normal bowel sounds Percussion/Palpation: abdomen soft; abdomen nontender Neurologic: moves all extremities; no focal motor deficits Lymphatic: no cervical or axillary lymphadenopathy Results & Data Results & Data ([facility]) Vital Signs (Past 12 Hours) Vital Signs Temp Pulse Pulse Resp BP Pulse Ox 10/25/19 07:44 36.7 C 110 H 20 145/68 H 93 10/25/19 03:55 36.6 C 104 H 18 151/97 H 93 10/25/19 03:35 102 H 16 94 10/25/19 02:55 106 H 10/24/19 23:12 36.6 C 100 H 18 140/94 95 10/24/19 22:15 102 H 16 96 Diagnostic Findings Chest x-ray from today was independently reviewed. Chest tube in good position. No significant reaccumulation of pleural fluid. Basilar consolidation bilaterally. PG Care Time/CCT Total # of Minutes Spent Total Time Spent with Patient: Total time spent is greater than 50% in coordination of care (as documented) at patient's floor/unit and/or counseling patient: Coding Level of Care Code 36631 Subseq Hosp Care Lvl 2 Diagnoses Pleural effusion on right J90
--- NOTE | 2019-10-25 10:55 | Hospitalist Progress Note ---
Date of Service October 25, 2019 Assessment & Plan (1) Pleural effusion on right: Has recurrent right pleural effusion Prior paracentesis x2 and the exudative fluid did not show any malignant cells Admitted this time with shortness of breath and noted to have right pleural effusion Appreciate thoracic surgery input and recommendation Going to have Pleurx catheter put in with pleural biopsy Status post placement of Pleurx catheter and chest tube on right side on 10/23/2019 Chest x-ray shows expanded lung Repeat chest x-ray did not show pneumothorax and/or effusion. 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 -her office is in touch with [place] [facility] for further management of her ovarian mass Her records has been sent to [facility] in [place] I will try to keep in touch with them on Saturday and expedite her appointment on discharge from the hospital (4) Diabetes mellitus type 2, controlled: We will hold metformin Continue SSI (5) Hypertension: Blood pressure is (6) Hypothyroidism: Continue supplement (7) Morbid obesity: (8) GENET (obstructive sleep apnea): Continue CPAP History of polycystic ovary syndrome DVT prophylaxis SCDs for now CODE STATUS Full Admission and Anticipated Discharge Date Admission Date: October 23, 2019 Subjective 10/23/2019 The patient was seen and examined in medical floor She was admitted with the shortness of breath secondary to right recurrent pleural effusion with right ovarian mass which was recently diagnosed Denies any abdominal pain, nausea and or vomiting Denies any shortness of breath at rest 10/24/2019 The patient was seen in medical telemetry unit She complains of some pain at the chest tube site on right Remains weak and lethargic Denies any abdominal pain, nausea and/or vomiting 10/25/2019 Patient was seen and examined in medical telemetry unit She complains today of some pain at the right chest at the site of chest tube Denies any abdominal discomfort, any nausea and/or vomiting Review of Systems Review of Systems: All systems reviewed and are unremarkable except as noted below Constitutional: + weakness; no fever and no chills Respiratory: + dyspnea on exertion Physical Exam Physical Exam: Sitting at the edge of the bed with minimal distress Constitutional: well developed, well nourished and + morbidly obese; no acute distress and not ill appearing Eyes: PERRL, conjunctivae normal, anicteric sclerae ENMT: external ear and nose normal, oropharynx normal Neck: trachea midline, no thyromegaly Respiratory: normal respiratory effort and + respiratory distress (Respiratory distress with exertion) Auscultation: + diminished lung sounds (Diminished breath sounds on right mid to lower lung rose) Cardiovascular: Rate/Rhythm: regular rate and regular rhythm Heart Sounds: no murmur Extremities: + edema (Trace to 1+ edema bilaterally) Gastrointestinal (Abdomen): Inspection/Auscultation: + abdomen distended and normal bowel sounds Percussion/Palpation: abdomen soft and + ascites (Mild to moderate ascites clinically); abdomen nontender Musculoskeletal: No acute arthritis in any joints Neurologic: moves all extremities; no focal motor deficits Alert, awake and oriented x3. Generally weak Lymphatic: no cervical or axillary lymphadenopathy Results & Data Results & Data ([facility]) Vital Signs (Past 12 Hours) Vital Signs Temp Pulse Pulse Resp BP Pulse Ox 10/25/19 07:44 36.7 C 110 H 20 145/68 H 93 10/25/19 03:55 36.6 C 104 H 18 151/97 H 93 10/25/19 03:35 102 H 16 94 10/25/19 02:55 106 H 10/24/19 23:12 36.6 C 100 H 18 140/94 95 Laboratory Results Short CBC 10/25/19 Range/Units 05:37 WBC 12.62 H (4.8-10.8) K/uL Hgb 11.8 L (12.0-16.0) g/dL Hct 36.4 L (37-47) % Plt Count 527 H (130-400) K/uL BMP 10/25/19 05:37 Sodium 131 L Potassium 3.9 Chloride 102 Carbon Dioxide 21 BUN 9 Creatinine 0.63 D Glucose 153 H Calcium 8.5 Medications Administered Current Inpatient Medications Albuterol (Ventolin Hfa) 2 puffs INH Q6H PRN PRN Reason: Shortness Of Breath Stop: 11/21/19 23:13 Amlodipine Besylate (Norvasc) 10 mg PO DAILY [facility] Stop: 11/22/19 08:59 Last Admin: 10/25/19 08:20 Dose: 10 mg Documented by: Cyanocobalamin (Vitamin B-12) 1,000 mcg PO DAILY [facility] Stop: 11/22/19 08:59 Last Admin: 10/25/19 08:21 Dose: 1,000 mcg Documented by: Dextrose (Dextrose 50%) 25 - 50 ml IV UD PRN; Protocol PRN Reason: Hypoglycemia Protocol Stop: 11/21/19 23:44 Docusate Sodium (Colace) 100 mg PO BID [facility] Stop: 11/22/19 08:59 Last Admin: 10/25/19 08:45 Dose: 100 mg Documented by: Duloxetine HCl (Cymbalta) 40 mg PO DAILY [facility] Stop: 11/22/19 08:59 Last Admin: 10/25/19 08:20 Dose: 40 mg Documented by: Ferrous Sulfate (Feosol) 325 mg PO BID [facility] Stop: 11/22/19 08:59 Last Admin: 10/25/19 08:20 Dose: 325 mg Documented by: Fluticasone Propionate (Flonase) 2 sprays NA QAM PRN PRN Reason: Allergy Symptoms Stop: 11/21/19 23:13 Glucagon (Glucagen) 1 mg IM UD PRN; Protocol PRN Reason: Hypoglycemia Protocol Stop: 11/21/19 23:44 Glucose (Glucose 40%) 15 - 30 gm PO UD PRN; Protocol PRN Reason: Hypoglycemia Protocol Stop: 11/21/19 23:44 Glucose (Dex4 Glucose) 4 - 8 tabs PO UD PRN; Protocol PRN Reason: Hypoglycemia Protocol Stop: 11/21/19 23:44 Acetaminophen (Ofirmev) 1,000 mg in 100 mls @ 400 mls/hr IV Q8H [facility] Stop: 10/26/19 17:59 Last Infusion: 10/25/19 02:30 Dose: Infused Documented by: Insulin Aspart (Novolog Flexpen) 0 units SC ACHS [facility] Stop: 11/22/19 07:29 Last Admin: 10/25/19 08:23 Dose: 10 units Documented by: Levothyroxine Sodium (Synthroid) 200 mcg PO DAILYBB [facility] Stop: 11/22/19 06:29 Last Admin: 04/19/20 05:22 Dose: 200 mcg Documented by: Loratadine (Claritin) 10 mg PO QAM [facility] Stop: 11/22/19 08:59 Last Admin: 10/25/19 08:21 Dose: 10 mg Documented by: Lovastatin (Mevacor) 40 mg PO HS [facility] Stop: 11/22/19 20:59 Last Admin: 10/24/19 20:17 Dose: 40 mg Documented by: Miscellaneous (Carbohydrates For Hypoglycemia) 15 - 30 gm PO UD PRN PRN Reason: Hypoglycemia Treatment Stop: 11/21/19 23:44 Morphine Sulfate (Morphine Sulfate) 1 - 2 mg IV Q1H PRN PRN Reason: Pain Stop: 11/06/19 17:28 Last Admin: 10/25/19 05:51 Dose: 2 mg Documented by: Multivitamins/Minerals (Caltrate Plus) 1 tab PO DAILY [facility] Stop: 11/22/19 08:59 Last Admin: 10/25/19 08:20 Dose: 1 tab Documented by: Nitroglycerin (Nitrostat) 0.4 mg SL UD PRN PRN Reason: Chest Pain Stop: 11/21/19 23:13 Ondansetron HCl (Zofran) 4 mg IV Q4H PRN PRN Reason: Nausea And Vomiting Stop: 11/22/19 17:28 Oxycodone HCl (Roxicodone Immediate Rel) 5 mg PO Q6H PRN PRN Reason: Pain Stop: 11/06/19 17:28 Last Admin: 10/25/19 08:45 Dose: 5 mg Documented by: Polyethylene Glycol (Miralax Powder Packet) 17 gm PO DAILY PRN PRN Reason: Constipation Stop: 11/21/19 23:13 Valacyclovir HCl (Valtrex) 1,000 mg PO DAILY [facility] Stop: 11/22/19 08:59 Last Admin: 10/25/19 08:20 Dose: 1,000 mg Documented by:
--- NOTE | 2019-10-25 11:19 | XRay Report ---
XR chest 1V portable HISTORY: 44 years-old Female chest tube removal status post removal of the right-sided chest tube COMPARISON: Chest radiograph of same day at 9:07 AM TECHNIQUE: Portable AP view of the chest FINDINGS: Cardiac silhouette is upper limits of normal in size. Pulmonary vascular congestion. Right greater le ft bibasilar and midlung opacities are redemonstrated. Status post removal of the right-sided chest t ubes with persistent subcutaneous emphysema of the right lateral chest wall. No pneumothorax identifi ed. Bones appear grossly intact. IMPRESSION: 1. Status post removal of the right-sided chest tubes. No pneumothorax identified. 2. Right greater than left bibasilar and midlung opacities are redemonstrated. ACT 112: Negative or not required by law. The above report was generated using voice recognition software. It may contain grammatical, syntax o r spelling errors. Electronically signed by: Jaleel Yuen M.D. 10/25/2019 11:18 AM
--- NOTE | 2019-10-25 12:02 | Progress Notes ---
DATE: 10/25/2019 The patient was seen today on postop day 2. I removed her chest tube and her PleurX because she was really not draining anything. Her x-ray showed very little in the way of fluid, although she does have decreased volumes. She has been ambulating in the hallway. She looks very good. I removed her chest tubes and her sites were clean. Her chest x-ray showed no evidence of pneumothorax or pleural effusion postoperatively. I am very pleased with how well she has responded to this. This patient can be discharged from my standpoint.
[2019-10-25] MEDS: LOVASTATIN 20 MG TAB PO SCH (20:34)
[2019-10-26] MEDS: ACETAMINOPHEN 1,000 MG/100 ML VIAL IV SCH ×2 (02:21→10:11)
[2019-10-26] MEDS: OXYCODONE HCL IR 5 MG TAB (IMMEDIATE RELEASE) PO PRN ×2 (02:47→10:39)
[2019-10-26] MEDS: LEVOTHYROXINE SODIUM 200 MCG TABLET PO SCH (06:14)
--- NOTE | 2019-10-26 07:20 | XRay Report ---
XR chest 1V portable CLINICAL HISTORY: s/p vats postoperative COMPARISON STUDY: 10/25/2019 FINDINGS: Slight improvement in aeration left hemithorax. Persistent subsegmental atelectasis left mi dlung. Stable postoperative changes right hemithorax. Slight increase in density right base. No evidence for pneumothorax. Unchanged subcutaneous emphysematous change. IMPRESSION: 1. Slight nonspecific increase in density right lung base. 2. Stable unchanged postoperative changes right hemithorax. 3. Slight improvement in the segmental atelectasis left midlung. ACT 112: Negative or not required by law. The above report was generated using voice recognition software. It may contain grammatical, syntax or spelling errors. Electronically signed by: Roosevelt Shearer M.D. 10/26/2019 7:19 AM
[2019-10-26] MEDS: FERROUS SULFATE 325 MG TAB PO SCH (08:13)
[2019-10-26] MEDS: DULOXETINE HCL 20 MG CAP PO SCH (08:13)
[2019-10-26] MEDS: CALCIUM 600MG + VIT D 400 IU TAB PO SCH (08:14)
[2019-10-26] MEDS: LORATADINE 10 MG TAB PO SCH (08:14)
[2019-10-26] MEDS: VALACYCLOVIR HCL 500 MG TABLET PO SCH (08:14)
[2019-10-26] MEDS: CYANOCOBALAMIN 500 MCG TABLET (VITAMIN B-12) PO SCH (08:14)
[2019-10-26] MEDS: AMLODIPINE BESYLATE 5 MG TAB PO SCH (08:14)
[2019-10-26] MEDS: INSULIN ASPART 100 UNITS/ML 3 ML PEN SC SCH ×3 (08:16→17:08)
[2019-10-26] MEDS: DOCUSATE SODIUM 100 MG CAP PO SCH (08:21)
--- NOTE | 2019-10-26 10:31 | Hospitalist Progress Note ---
Date of Service October 26, 2019 Assessment & Plan (1) Pleural effusion on right: Has recurrent right pleural effusion Prior paracentesis x2 and the exudative fluid did not show any malignant cells Admitted this time with shortness of breath and noted to have right pleural effusion Appreciate thoracic surgery input and recommendation Going to have Pleurx catheter put in with pleural biopsy Status post placement of Pleurx catheter and chest tube on right side on 10/23/2019 Chest x-ray shows expanded lung Repeat chest x-ray did not show pneumothorax and/or effusion. 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 -her office is in touch with [place] [facility] for further management of her ovarian mass Her records has been sent to [facility] onc[facility] in [place] I will try to keep in touch with them on Saturday and expedite her appointment on discharge from the hospital Her [facility] physician is trying to get an appointment with [facility] oncology in [place] (4) Diabetes mellitus type 2, controlled: We will hold metformin Continue SSI (5) Hypertension: Blood pressure is (6) Hypothyroidism: Continue supplement (7) Morbid obesity: (8) GENET (obstructive sleep apnea): Continue CPAP History of polycystic ovary syndrome DVT prophylaxis SCDs for now CODE STATUS Full Likely be discharged this afternoon Admission and Anticipated Discharge Date Admission Date: October 23, 2019 Subjective 10/23/2019 The patient was seen and examined in medical floor She was admitted with the shortness of breath secondary to right recurrent pleural effusion with right ovarian mass which was recently diagnosed Denies any abdominal pain, nausea and or vomiting Denies any shortness of breath at rest 10/24/2019 The patient was seen in medical telemetry unit She complains of some pain at the chest tube site on right Remains weak and lethargic Denies any abdominal pain, nausea and/or vomiting 10/25/2019 Patient was seen and examined in medical telemetry unit She complains today of some pain at the right chest at the site of chest tube Denies any abdominal discomfort, any nausea and/or vomiting 10/26/2019 The patient was seen and examined in medical telemetry unit She has been stable and denies any shortness of breath at rest Only complaint remains right lateral chest wall pain Denies any abdominal pain and/or more distention Review of Systems Review of Systems: All systems reviewed and are unremarkable except as noted below Constitutional: + weakness; no fever and no chills Respiratory: + dyspnea on exertion Physical Exam Physical Exam: Sitting at the edge of the bed with minimal distress Constitutional: well developed, well nourished and + morbidly obese; no acute distress and not ill appearing Eyes: PERRL, conjunctivae normal, anicteric sclerae ENMT: external ear and nose normal, oropharynx normal Neck: trachea midline, no thyromegaly Respiratory: normal respiratory effort and + respiratory distress (Respiratory distress with exertion) Auscultation: + diminished lung sounds (Right lower lung with localized tenderness right lateral chest wall) Cardiovascular: Rate/Rhythm: regular rate and regular rhythm Heart Sounds: no murmur Extremities: + edema (Trace to 1+ edema bilaterally) Gastrointestinal (Abdomen): Inspection/Auscultation: + abdomen distended and normal bowel sounds Percussion/Palpation: abdomen soft and + ascites (Mild to moderate ascites clinically); abdomen nontender Musculoskeletal: No acute arthritis in any joints Neurologic: moves all extremities; no focal motor deficits Lymphatic: no cervical or axillary lymphadenopathy Results & Data Results & Data ([facility]) Vital Signs (Past 12 Hours) Vital Signs Temp Pulse Pulse Pulse Resp BP Pulse Ox 10/26/19 07:29 97 H 10/26/19 07:06 36.4 C L 99 H 18 147/90 H 92 10/26/19 04:27 37.1 C 98 H 18 134/86 94 10/25/19 23:28 100 H 10/25/19 23:06 36.6 C 101 H 18 131/81 94 Medications Administered Current Inpatient Medications Albuterol (Ventolin Hfa) 2 puffs INH Q6H PRN PRN Reason: Shortness Of Breath Stop: 11/21/19 23:13 Amlodipine Besylate (Norvasc) 10 mg PO DAILY [facility] Stop: 11/22/19 08:59 Last Admin: 10/26/19 08:14 Dose: 10 mg Documented by: Cyanocobalamin (Vitamin B-12) 1,000 mcg PO DAILY [facility] Stop: 11/22/19 08:59 Last Admin: 10/26/19 08:14 Dose: 1,000 mcg Documented by: Dextrose (Dextrose 50%) 25 - 50 ml IV UD PRN; Protocol PRN Reason: Hypoglycemia Protocol Stop: 11/21/19 23:44 Docusate Sodium (Colace) 100 mg PO BID [facility] Stop: 11/22/19 08:59 Last Admin: 10/26/19 08:21 Dose: 100 mg Documented by: Duloxetine HCl (Cymbalta) 40 mg PO DAILY [facility] Stop: 11/22/19 08:59 Last Admin: 10/26/19 08:13 Dose: 40 mg Documented by: Ferrous Sulfate (Feosol) 325 mg PO BID [facility] Stop: 11/22/19 08:59 Last Admin: 10/26/19 08:13 Dose: 325 mg Documented by: Fluticasone Propionate (Flonase) 2 sprays NA QAM PRN PRN Reason: Allergy Symptoms Stop: 11/21/19 23:13 Glucagon (Glucagen) 1 mg IM UD PRN; Protocol PRN Reason: Hypoglycemia Protocol Stop: 11/21/19 23:44 Glucose (Glucose 40%) 15 - 30 gm PO UD PRN; Protocol PRN Reason: Hypoglycemia Protocol Stop: 11/21/19 23:44 Glucose (Dex4 Glucose) 4 - 8 tabs PO UD PRN; Protocol PRN Reason: Hypoglycemia Protocol Stop: 11/21/19 23:44 Acetaminophen (Ofirmev) 1,000 mg in 100 mls @ 400 mls/hr IV Q8H [facility] Stop: 10/26/19 17:59 Last Admin: 10/26/19 10:11 Dose: 400 mls/hr Documented by: Insulin Aspart (Novolog Flexpen) 0 units SC ACHS [facility] Stop: 11/22/19 07:29 Last Admin: 10/26/19 08:16 Dose: 6 units Documented by: Levothyroxine Sodium (Synthroid) 200 mcg PO DAILYBB [facility] Stop: 11/22/19 06:29 Last Admin: 10/26/19 06:14 Dose: 200 mcg Documented by: Loratadine (Claritin) 10 mg PO QAM [facility] Stop: 11/22/19 08:59 Last Admin: 10/26/19 08:14 Dose: 10 mg Documented by: Lovastatin (Mevacor) 40 mg PO HS [facility] Stop: 11/22/19 20:59 Last Admin: 10/25/19 20:34 Dose: 40 mg Documented by: Miscellaneous (Carbohydrates For Hypoglycemia) 15 - 30 gm PO UD PRN PRN Reason: Hypoglycemia Treatment Stop: 11/21/19 23:44 Morphine Sulfate (Morphine Sulfate) 1 - 2 mg IV Q1H PRN PRN Reason: Pain Stop: 11/06/19 17:28 Last Admin: 10/25/19 05:51 Dose: 2 mg Documented by: Multivitamins/Minerals (Caltrate Plus) 1 tab PO DAILY [facility] Stop: 11/22/19 08:59 Last Admin: 10/26/19 08:14 Dose: 1 tab Documented by: Nitroglycerin (Nitrostat) 0.4 mg SL UD PRN PRN Reason: Chest Pain Stop: 11/21/19 23:13 Ondansetron HCl (Zofran) 4 mg IV Q4H PRN PRN Reason: Nausea And Vomiting Stop: 11/22/19 17:28 Oxycodone HCl (Roxicodone Immediate Rel) 5 mg PO Q6H PRN PRN Reason: Pain Stop: 11/06/19 17:28 Last Admin: 10/26/19 02:47 Dose: 5 mg Documented by: Polyethylene Glycol (Miralax Powder Packet) 17 gm PO DAILY PRN PRN Reason: Constipation Stop: 11/21/19 23:13 Last Admin: 10/26/19 08:20 Dose: 17 gm Documented by: Valacyclovir HCl (Valtrex) 1,000 mg PO DAILY [facility] Stop: 11/22/19 08:59 Last Admin: 10/26/19 08:14 Dose: 1,000 mg Documented by:
--- NOTE | 2019-10-26 11:06 | Progress Notes ---
DATE: 10/26/2019 Kendra was seen today. She is comfortable. She is not ambulating as much as I would like. She is on room air. She is not having much in the way of pain. Her pathology results are not back yet, although this certainly appeared to be benign. She is being set up to see for oncologic gynecology in [place] from [facility]. At this point, I was pleased with her, although I thought her volumes were low. She sounds better on exam. She is okay for discharge from my standpoint. I will not need to follow her up. Discharge instructions have been given.
--- NOTE | 2019-10-26 16:09 | Discharge Summary ---
Date of Service October 26, 2019 Admission HPI Per Admitting Provider DATE OF ADMISSION: 10/22/2019 CHIEF COMPLAINT: Shortness of breath. HISTORY OF PRESENT ILLNESS: This is a 44-year-old female with past medical history significant for type 2 diabetes, polycystic ovaries, hyperlipidemia, hypothyroidism, chronic rhinitis, hypertension, hirsutism, intellectual disability, major depression, who lives with her , who was recently admitted on 10/14/2019 for shortness of breath and cough and found to have large right pleural effusion. She is status post thoracentesis 2 times with a large amount of of fluid taken out and it was thought to be exudative.At that time COVID test was done which was negative, flu was negative, and CAT scan of the abdomen and pelvis showed 26.5 cm solid and cystic mass lesion in the right ovary. Consider ovarian cancer until proven otherwise. She is supposed to follow with outpatient. She seems to be not clear about the diagnosis and she says she is supposed to be in [place] tomorrow. But she says after going home a couple of days she felt fine, then again she felt short of breath. Climbing uphill made her short of breath. She still has some cough with whitish phlegm. Denies any fever, chills. No chest pain, no nausea, no vomiting. Appetite is good. No headache. She has some dizziness. No blurred visions, no earache. Has some stuffed nose. No sore throat. No dysphagia. No nausea, no abdominal pain. She has some back pain. Ambulating okay. No diarrhea, no constipation, no blood in the stools or black stools. No hematuria. Currently resting comfortably and hemodynamically stable. Imaging studies showed again recurrence of right pleural effusion. Admission Exam Per Admitting Provider GENERAL: The patient is obese, not in acute distress. VITAL SIGNS: Temperature 36.7, pulse 98, respiratory rate 22, blood pressure 137/77, oxygen 97% on room air. HEENT: No pallor, no icterus. NECK: No JVD, no neck masses. Supple. CARDIOVASCULAR: S1, S2 heard, regular rate and rhythm. No murmur, no gallop. RESPIRATORY SYSTEM: Normal AP diameter. No accessory muscle use. Diminished breath sounds in the right side. ABDOMEN: Soft, bowel sounds present, nontender. No distention. CENTRAL NERVOUS SYSTEM: Cranial nerves II-XII grossly intact, nonfocal. EXTREMITIES: No edema, no erythema. Principal Diagnosis Recurrent right pleural effusion, exertional shortness of breath, right tubo- ovarian mass under investigation, type 2 diabetes, hypertension, hypothyroidism, obesity Discharge Exam Constitutional well developed, well nourished and + morbidly obese; no acute distress and not ill appearing Eyes PERRL, conjunctivae normal, anicteric sclerae ENMT external ear and nose normal, oropharynx normal Neck trachea midline, no thyromegaly Respiratory normal respiratory effort and + respiratory distress (Respiratory distress with exertion) Auscultation: + diminished lung sounds (Right lower lung with localized tenderness right lateral chest wall) Cardiovascular Rate/Rhythm: regular rate and regular rhythm Heart Sounds: no murmur Extremities: + edema (Trace to 1+ edema bilaterally) Gastrointestinal (Abdomen) Inspection/Auscultation: + abdomen distended and normal bowel sounds Percussion/Palpation: abdomen soft and + ascites (Mild to moderate ascites clinically); abdomen nontender Neurologic moves all extremities; no focal motor deficits Lymphatic no cervical or axillary lymphadenopathy Discharge Data Allergies Allergy/AdvReac Type Severity Reaction Status Date / Time lisinopril Allergy Severe swelling Verified 10/22/19 21:22 of face, lips, tongue TWAN Inhibitors AdvReac Severe Angioedema Verified 10/22/19 21:22 NSAIDS (Non-Steroidal AdvReac Severe Angioedema Verified 10/22/19 21:22 Anti-Inflamma Consultations 10/22/19 21:21 ED Decision to Admit Stat 10/22/19 23:14 Consult Case Management - Discharge Planning Routine 10/23/19 08:00 Consult Pulmonology Routine Procedures Performed Operation Date: 10/23/19 13:25 Actual Procedures p Right Video Assisted Thoracoscopy, Total Pleurectomy, Pleurx Catheter placement(Right) - Andrea Edwards MD, FACS Hospital Course (1) Pleural effusion on right: Has recurrent right pleural effusion Prior paracentesis x2 and the exudative fluid did not show any malignant cells Admitted this time with shortness of breath and noted to have right pleural effusion Appreciate thoracic surgery input and recommendation Going to have Pleurx catheter put in with pleural biopsy Status post placement of Pleurx catheter and chest tube on right side on 10/23/2019 Chest x-ray shows expanded lung Repeat chest x-ray did not show pneumothorax and/or effusion. It showed bibasilar consolidation/atelectasis Management of chest tube and Pleurx catheter as per thoracic surgeon Status post removal of Pleurx and right thoracic tube Denies any significant symptoms as of today 10/26/19 Likely be discharged this afternoon (2) Acute dyspnea: As above (3) Right tubo-ovarian mass: Noted to have 21 x 20 x 26.5 cm right ovarian mass in CT of the abdomen on 10/16/2019 She was advised to go to [place] to have surgery and biopsy for a definitive diagnosis Markers for ovarian cancer have been negative Discussed with her [employer] Dr. Shantelle Ledesma -her office is in touch with [place] [facility] for further management of her ovarian mass Her records has been sent to [facility] in [place] I will try to keep in touch with them on Saturday and expedite her appointment on discharge from the hospital Her [facility] physician is trying to get an appointment with [facility] in [place] (4) Diabetes mellitus type 2, controlled: We will hold metformin Continue SSI (5) Hypertension: Blood pressure is (6) Hypothyroidism: Continue supplement (7) Morbid obesity: (8) GENET (obstructive sleep apnea): Continue CPAP History of polycystic ovary syndrome DVT prophylaxis SCDs for now CODE STATUS Full Likely be discharged this afternoon Total Time Total Time Spent Total Time Spent (In Minutes): 35 minutes Total Time Includes: Examination of the Patient, Discharge Planning, Medication Reconciliation and Communication With Other Providers Discharge Plan Discharge Items Patient Disposition: Home - Self-Care Reason For Visit: SOB Discharge Diagnosis: Recurrent right pleural effusion, exertional shortness of breath, right tubo- ovarian mass under investigation, type 2 diabetes, hypertension, hypothyroidism, obesity Condition on Discharge: Good Activity: Resume your previous activity Non-emergency contact: Primary Care Provider Call non-emergency contact if: you have any medication questions Follow-up/Referrals: Maxi Burns MD [Primary Care Provider] - 10/30/19 10:40 am (Appointment with Dr. Mcgill is at [facility] Your [facility] doctor's office will call you tomorrow on 10/27/2019 with an appointment with [facility] in [place] for further management of your ovarian mass) Diet: Carb Consistent or DM2 Addtl Attending Provider Instructions: Remove all dressings, tape, and gauze on 10/28/2019. Leave all incisions open to air and you may shower. Pending Studies at Discharge: No Stand-Alone Forms: [facility], Smoking Cessation Medications and DC Order Prescriptions: Continued loratadine 10 mg tablet 10 mg PO QAM Qty: 30 RF: 0 metformin [Glucophage] 1,000 mg Tablet 1,000 mg PO BID RF: 0 docusate sodium [Stool Softener] 100 mg Capsule 100 mg PO BID RF: 0 fluticasone propionate [Flonase Allergy Relief] 50 mcg/actuation [place],Suspension 2 spray INTRANASAL QAM PRN (Reason: Allergy Symptoms) RF: 0 cyanocobalamin (vitamin B-12) [Vitamin B-12] 1,000 mcg Tablet Extended Release 1,000 mcg PO DAILY RF: 0 ferrous sulfate 325 mg (65 mg iron) Tablet 325 mg PO BID RF: 0 Caltrate 600 plus D 600 mg (1,500 mg)-800 unit Tablet,Chewable 1 tab PO DAILY RF: 0 Trulicity 0.75 mg/0.5 mL pen injector 0.75 mg SUBCUT WK RF: 0 amlodipine 10 mg tablet 10 mg PO DAILY Qty: 30 RF: 0 furosemide [Lasix] 20 mg Tablet 20 mg PO DAILY PRN (Reason: Fluid Retention) Qty: 30 RF: 0 acetaminophen [Tylenol] 325 mg Tablet 325 mg PO Q6H PRN (Reason: Pain) RF: 0 valacyclovir 500 mg Tablet 1,000 mg PO DAILY RF: 0 levothyroxine 200 mcg Tablet 200 mcg PO QAM RF: 0 duloxetine 20 mg Capsule,Delayed Release(Dr/Ec) 40 mg PO DAILY RF: 0 lovastatin 40 mg tablet 40 mg PO HS RF: 0 albuterol sulfate [Ventolin HFA] 90 mcg/actuation HFA aerosol inhaler 2 puff INHALATION Q6H PRN (Reason: Shortness Of Breath) RF: 0 Discharge Orders: Discharge Order (Routine); Ordered 10/26/19 Ordered By: Mary Anne Infante Admission Data Admit Date/Time: 10/23/19 13:17 Attending Provider: Mary Anne Infante Admit Provider: Amrik Reyna Primary Care Provider: Maxi Burns Other Providers: Zina Atkinson ; Amrik Reyna ; Ciro Sinclair Other Interventions: Discharge Summary Assessment (RN) Last Done: 10/26/19 13:03
== END 2019-10-26 18:08 | disposition home or self-care (01) | DRG 164 ==
LOC: ED 20:18 → 2N 20:18 → SUATTDRO 22:05 → 2N 22:41